=== PATIENT | male | born 1960 | race Caucasian/White ===

== ENCOUNTER → 2020-08-12 13:14 | Outpatient (BNVA) | payer MEDICARE, SELFPAY | PROVIDERS: Family Provider Family Medicine; PCP Family Medicine; Visit Provider Nurse Practitioner Family | DX: M25.512 Pain in left shoulder (principal); W19.XXXA Unspecified fall, initial encounter | CPT/HCPCS: 73030 ==

== ENCOUNTER 2020-11-02 16:11 | Emergency (ER) | payer MEDICARE, SELFPAY ==
[2020-11-02 16:56] VITALS: BP 171/104; PULSE 100; RESP 18; TEMP 36.8; O2SAT 98; BMI 21.1
[2020-11-02 17:42] VITALS: BP 177/110; PULSE 102; RESP 16; O2SAT 98
--- NOTE | 2020-11-02 17:57 | ECG_ITS ---
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
--- NOTE | 2020-11-02 17:57 | XR_ITS ---
WS: [id number] Exam: XR chest 1V portable [id number] Date/Time of Exam: 11/02/2020 6:19 PM Reason For Exam: palpitations Comparison 09/14/2017. The lungs are fully expanded and clear. Heart size is normal for technique. No pleural effusions. Dick cified granulomas noted bilaterally. Operative fusion of the lower cervical spine. Surgical clips in the upper left abdomen. XR/XR chest 1V portable [id number] IMPRESSION: 1. No acute cardiopulmonary finding. No change.
--- NOTE | 2020-11-02 18:00 | W.ED.ARRPALP ---
HPI - Arrhythmia/Palpitations General: Chief Complaint: Arrhythmia/Palpitations Stated Complaint: HIGH BP Time Seen by Provider: 11/02/20 17:49 History of Present Illness: HPI narrative: The patient is a 60-year-old male with past medical history hypertension and an old stroke who comes to the ER complaining of palpitations for the past week. He has episodes that last approximately less than 5 seconds and has these episodes about 5 times a day for the past week or so. He has been told by his family physician that he has palpitations and has had them his entire life however he has not felt them until this past week. At present he denies any symptoms including palpitations, chest pain, shortness of breath. He does not get short of breath with the episodes. MD complaint: palpitations Onset (ago): day(s) (7) Duration: intermittent and now resolved Severity: mild Associated symptoms: Reports anxiety Review of Systems General: Reports: 10 or more systems reviewed and unremarkable except in HPI and below Const: Denies: fatigue Eyes: Denies: change in vision, blurry vision or eye redness ENMT: Denies: throat pain, swelling of lips/tongue, ear or mastoid pain or nasal congestion Card: Reports: palpitations; Denies: chest pain, irregular heart rhythm, edema, dyspnea on exertion or orthopnea Resp: Denies: dyspnea, productive cough or non-productive cough GI: Denies: abdominal pain, diarrhea or GI cramping : Denies: flank pain, urinary frequency or urinary urgency Musc: Denies: neck pain, back pain, extremity pain, joint pain, joint redness, limited range of motion or muscle weakness Skin/Breast: Denies: rash, pruritus, erythema, skin pain or skin tenderness Neuro: Denies: headache(s), numbness in extremities, weakness in extremities, sensory changes, difficulty walking, dizziness, confusion or Slurred speech present Psych: Reports: anxiety Endo: Denies: polyuria All/Imm: Denies: urticaria, throat swelling or tongue swelling PFSH ED PFSH: Medical History Anxiety Carcinoma of left kidney CVA (cerebral vascular accident) Enrolled in chronic care management GERD (gastroesophageal reflux disease) Hypertension Hypothyroid Surgical History History of neck surgery Social History Smoking and tobacco status: former smoker Quit status (tobacco): has quit using tobacco Former quit date comment: smoked for 45 years Alcohol intake: current Alcohol intake frequency: holidays/special occasions only Physical Exam Const: COMMON NORMALS: no acute distress, average body habitus, patient oriented x3, no limitations, healthy appearing, alert and well nourished GENERAL APPEARANCE: cooperative, comfortable, well kempt and well developed ORIENTATION/CONSCIOUSNESS: Yes awake, Yes oriented to person, Yes oriented to place and Yes oriented to time HENMT: COMMON NORMALS: normocephalic, external ears normal and Normal external nose present HEAD & SCALP: normal to inspection and normocephalic NOSE: Normal external nose present EXTERNAL EAR: Yes external ears normal MOUTH: Normal oral and palatal mucosa present THROAT: posterior oropharynx normal Eye: COMMON NORMALS: Equal, round and reactive pupils present and EOMs intact bilaterally GENERAL EYE: appearance normal, both eyes and all related structures PUPIL: Yes Equal, round and reactive pupils present Neck/C-Spine: COMMON NORMALS: full ROM, no lymphadenopathy, no meningeal signs and no JVD GENERAL: Yes normal visual inspection Lymph: LYMPHATIC: no lymphadenopathy noted Chest: COMMONS NORMALS: normal inspection of the chest and normal palpation of entire chest wall Resp: COMMON NORMALS: normal respiratory effort, No retractions, No use of accessory muscles, clear to auscultation bilaterally and percussion normal EFFORT & INSPECTION: Yes able to speak in complete sentences AUSCULTATION: clear to auscultation bilaterally PERCUSSION: percussion normal Cardio: COMMON NORMALS: no JVD, regular rate, regular rhythm, S1 normal heart sound present, S2 normal heart sound present and Peripheral pulses 2+ throughout RATE: regular rate RHYTHM: regular rhythm HEART SOUNDS: S1 normal heart sound present and S2 normal heart sound present PERIPHERAL PULSES: Peripheral pulses 2+ throughout GI: COMMON NORMALS: Normal to inspection, nondistended, normoactive bowel sounds present, Soft to palpation, non-tender and no masses INSPECTION: Yes normal to inspection PALPATION: Yes Soft to palpation : COMMON NORMALS: Yes no CVA tenderness BLADDER/KIDNEY EXAM: Yes no CVA tenderness Back/Pelvis: COMMON NORMALS: no CVA tenderness, thoracic and lumbar spine normal to inspection, no thoracic nor lumbar tenderness and thoraco-lumbar ROM normal Extremity: COMMON NORMALS: normal to inspection, full ROM, capillary refill normal, no joint enlargement and no pedal edema GENERAL: Yes normal exam except as noted Neuro: COMMON NORMALS: patient oriented x3, CN's II-XII intact bilaterally, moves all extremities, no focal motor deficits, no sensory deficits noted and gait normal SENSORIUM/ORIENTATION: Yes alert, Yes oriented to person, Yes oriented to place and Yes oriented to time MENINGEAL SIGNS: Yes no meningeal signs Psych: COMMON NORMALS: mental status grossly normal, Normal thought process present, cooperative, normal affect and speech normal APPEARANCE: Yes well kempt ATTITUDE: Yes calm SPEECH: Yes normal speech MOOD & AFFECT: Yes anxious THOUGHT PROCESS: Normal thought process present Skin: COMMON NORMALS: no rashes or lesions noted GENERAL SKIN EXAM: no rashes or lesions noted Course Vital Signs: Vital signs: Vital Signs Temperature 98.3 F 11/02/20 16:56 Pulse Rate 86 11/02/20 21:26 Respiratory Rate 18 11/02/20 21:26 Blood Pressure 137/80 11/02/20 21:26 Pulse Oximetry 98 11/02/20 21:26 MDM - Arrhythmia/Palpitations MDM Narrative: Medical decision making narrative: The patient is having palpitations. He was monitored for a few hours on telemetry with no palpitations seen. Recommended he follow-up with a legal nurse consultant. Placed a case management referral for this. ER with worsening symptoms. Follow-up with primary care physician in a few days to monitor improvement of symptoms Lab Data: Labs: Lab Results 11/02/20 11/02/20 11/02/20 Range/Units 17:35 17:35 17:35 WBC 7.1 (4.0-10.0) 10^3/ uL RBC 5.39 H (4.1-5.3) 10^6/u L Hgb 15.9 (11.7-16.6) g/dL Hct 49.1 (42.0-52.0) % MCV 91.1 (80-94) fL MCH 29.5 (28.0-34.0) pg MCHC 32.4 (30.0-36.0) g/dL RDW 13.2 (12.1-15.1) % Plt Count 292 (130-400) 10^3/c mm MPV 10.1 (7.4-10.4) fL Neut % (Auto) 56.7 % Lymph % (Auto) 27.2 % Millard % (Auto) 10.1 % Eos % (Auto) 5.1 % Baso % (Auto) 0.8 % Neut # (Auto) 4.02 (1.8-7.7) 10^3/u L Lymph # (Auto) 1.9 (0.8-4.8) 10^3/u L Millard # (Auto) 0.7 (0.2-0.9) 10^3/u L Eos # (Auto) 0.4 (0.0-0.8) 10^3/u L Baso # (Auto) 0.1 (0.0-0.1) 10^3/u L Nucleated RBC % (a uto) 0 % Nucleated RBCs # 0.0 /100WBC D-Dimer (0-0.59) ug/mIFE U Sodium 142 (136-145) mmol/L Potassium 4.4 (3.5-5.1) mmol/L Chloride 103 (98-107) mmol/L Carbon Dioxide 30 H (22-29) mmol/L Anion Gap 13.4 (5-19) BUN 13 (8-23) mg/dL Creatinine 1.0 (0.7-1.2) mg/dL GFR Calculation 76.2 L (90-130) mL/min Glucose 72 (65-115) mg/dL Calculated Osmolal ity 293 (285-295) mOsm/k g Calcium 9.6 (8.5-10.5) mg/dL Total Bilirubin 0.7 (0.15-1.2) mg/dL AST 16 (0-40) U/L ALT 14 (0-41) U/L Alkaline Phosphata se 117 (40-130) IU/L Troponin T Baselin e 27 H (0-15) ng/L Troponin T 120 Min [place] (0-15) ng/L Delta Troponin T (0-10) ABS# Total Protein 7.9 (6.6-8.7) g/dL Albumin 4.8 (3.5-5.2) g/dL Globulin 3.1 (1.3-4.6) g/dL Urine Color (Yellow) Urine Appearance (CLEAR) Urine pH (5-7) Ur Specific Gravit y (1.005-1.030) Urine Protein (Negative) Urine Glucose (UA) (Normal) Urine Ketones (Negative) Urine Blood (Negative) Urine Nitrate (Negative) Urine Bilirubin (Negative) Urine Urobilinogen (Negative) mg/dL Ur Leukocyte Sharron ase (Negative) 11/02/20 11/02/20 11/02/20 Range/Units 17:35 17:40 21:10 WBC (4.0-10.0) 10^3/ uL RBC (4.1-5.3) 10^6/u L Hgb (11.7-16.6) g/dL Hct (42.0-52.0) % MCV (80-94) fL MCH (28.0-34.0) pg MCHC (30.0-36.0) g/dL RDW (12.1-15.1) % Plt Count (130-400) 10^3/c mm MPV (7.4-10.4) fL Neut % (Auto) % Lymph % (Auto) % Millard % (Auto) % Eos % (Auto) % Baso % (Auto) % Neut # (Auto) (1.8-7.7) 10^3/u L Lymph # (Auto) (0.8-4.8) 10^3/u L Millard # (Auto) (0.2-0.9) 10^3/u L Eos # (Auto) (0.0-0.8) 10^3/u L Baso # (Auto) (0.0-0.1) 10^3/u L Nucleated RBC % (a uto) % Nucleated RBCs # /100WBC D-Dimer 0.43 (0-0.59) ug/mIFE U Sodium (136-145) mmol/L Potassium (3.5-5.1) mmol/L Chloride (98-107) mmol/L Carbon Dioxide (22-29) mmol/L Anion Gap (5-19) BUN (8-23) mg/dL Creatinine (0.7-1.2) mg/dL GFR Calculation (90-130) mL/min Glucose (65-115) mg/dL Calculated Osmolal ity (285-295) mOsm/k g Calcium (8.5-10.5) mg/dL Total Bilirubin (0.15-1.2) mg/dL AST (0-40) U/L ALT (0-41) U/L Alkaline Phosphata se (40-130) IU/L Troponin T Baselin e (0-15) ng/L Troponin T 120 Min [place] 25.68 H (0-15) ng/L Delta Troponin T -1.32 L (0-10) ABS# Total Protein (6.6-8.7) g/dL Albumin (3.5-5.2) g/dL Globulin (1.3-4.6) g/dL Urine Color Yellow (Yellow) Urine Appearance Clear (CLEAR) Urine pH 5 (5-7) Ur Specific Gravit y 1.020 (1.005-1.030) Urine Protein Neg (Negative) Urine Glucose (UA) Norm (Normal) Urine Ketones Negative (Negative) Urine Blood Neg (Negative) Urine Nitrate Negative (Negative) Urine Bilirubin Neg (Negative) Urine Urobilinogen Norm (Negative) mg/dL Ur Leukocyte Sharron ase Negative (Negative) Discharge Plan Discharge Patient Disposition: Home Clinical Impression: Palpitations Condition: Stable Prescriptions: No Action aspirin [Adult Low Dose Aspirin] 81 mg tablet,delayed release (DR/EC) 81 mg PO DAILY@0800 RF: 0 clonidine HCl 0.2 mg tablet 0.2 mg PO .stat Qty: 1 RF: 0 clonidine HCl 0.1 mg tablet See Rx Instructions .ROUTE .COMPLEX Qty: 60 RF: 11 carvedilol 3.125 mg tablet 3.125 mg PO Q12H RF: 0 nortriptyline 25 mg capsule 25 mg PO DAILY@0800 RF: 0 Discharge Orders: Discharge ED (Routine); Ordered 11/02/20 Ordered By: Corwin Max Referrals: Rajinder Kruse DO [Primary Care Provider] - Discharge Diet: Advance as tolerated Discharge Activity: Resume usual activity Patient Instructions: Palpitations (ED), Opioid Safety Activity Restrictions/Additional Instructions: You are having palpitations. We have not seen them on the heart monitor you have a normal rhythm. Please follow-up with your primary care physician in a couple days to discuss this again and monitor your blood pressure as it was elevated here. You likely require a new medication to help lower it further. Return to the ER with worsening symptoms. I have placed a case management referral to help you get an appointment with a legal nurse consultant to further evaluate your palpitations. They should be calling you tomorrow to help set this up. Coding Level of Care Code ED Space Scheduler for Remi Fwfelix Exam Comprehensive
[2020-11-02] MEDS: sodium chloride 0.9% 1,000 ML 999 ML IV (18:14)
[2020-11-02 18:27] VITALS: BP 177/110; PULSE 95; RESP 16; O2SAT 98
[2020-11-02 18:46] LABS: Add Urine Microscopic? NO
[2020-11-02 18:58] LABS: Bilirubin Urine Neg (Negative); Blood Urine Neg (Negative); Glucose Urine UA Norm (Normal); Ketones Urine Negative (Negative); Leukocyte Esterase Urine Negative (Negative); Nitrate Urine Negative (Negative); Protein Urine Neg (Negative); Urine Appearance Clear (CLEAR); Urine Color Yellow (Yellow); Urobilinogen Urine Norm (Negative); pH Urine 5 (5-7)
[2020-11-02 19:02] VITALS: BP 177/110
[2020-11-02] MEDS: cloNIDine 0.1 mg Tablet 0.2 MG PO (19:02)
[2020-11-02 20:24] VITALS: BP 161/92; PULSE 101; RESP 18; O2SAT 96
[2020-11-02 20:34] LABS: Basophils # 0.1 10^3/uL (0.0-0.1); Basophils % 0.8 %; Eosinophils # 0.4 10^3/uL (0.0-0.8); Eosinophils % 5.1 %; Hematocrit 49.1 % (42.0-52.0); Hemoglobin 15.9 g/dL (11.7-16.6); Lymphocytes # 1.9 10^3/uL (0.8-4.8); Lymphocytes % 27.2 %; Mean Corpuscular HGB Conc 32.4 g/dL (30.0-36.0); Mean Corpuscular Hemoglobin 29.5 pg (28.0-34.0); Mean Corpuscular Volume 91.1 fL (80-94); Mean Platelet Volume 10.1 fL (7.4-10.4); Monocytes # 0.7 10^3/uL (0.2-0.9); Monocytes % 10.1 %; Neutrophils # 4.02 10^3/uL (1.8-7.7); Neutrophils % 56.7 %; Nucleated Red Blood Cells % 0 %; Platelet Count 292 10^3/cmm (130-400); Red Blood Count 5.39 10^6/uL (4.1-5.3); Red Cell Distribution Width 13.2 % (12.1-15.1); White Blood Count 7.1 10^3/uL (4.0-10.0)
[2020-11-02 20:42] LABS: Alanine Aminotransferase 14 U/L (0-41); Albumin Level 4.8 g/dL (3.5-5.2); Alkaline Phosphatase 117 IU/L (40-130); Anion Gap 13.4 (5-19); Aspartate Amino Transferase 16 U/L (0-40); Blood Urea Nitrogen 13 mg/dL (8-23); Calcium 9.6 mg/dL (8.5-10.5); Carbon Dioxide 30 mmol/L (22-29); Chloride 103 mmol/L (98-107); Globulin 3.1 g/dL (1.3-4.6); Glomerular Filtration Rate 76.2 mL/min (90-130); Glucose 72 mg/dL (65-115); Osmolality Calculated 293 mOsm/kg (285-295); Potassium 4.4 mmol/L (3.5-5.1); Sodium 142 mmol/L (136-145); Total Bilirubin 0.7 mg/dL (0.15-1.2); Total Protein 7.9 g/dL (6.6-8.7)
[2020-11-02 20:44] LABS: Troponin(5th) Baseline 27 ng/L (0-15)
[2020-11-02 21:11] LABS: D Dimer 0.43 ug/mIFEU (0-0.59)
[2020-11-02 21:26] VITALS: BP 137/80; PULSE 86; RESP 18; O2SAT 98
[2020-11-02 21:54] LABS: Troponin 5 2HR 25.68 ng/L (0-15)
[2020-11-02 22:01] LABS: Troponin 5 2HR Delta -1.32 ABS# (0-10)
--- NOTE | 2020-11-03 11:44 | DCPLANNER ---
security project manager had message to schedule a follow up appointment for patient with heart care. security project manager called heart care, spoke with Debby, gave clinic patients information. A follow up appointment was scheduled for Monday, November 16, 2020 at 9:[address] Gonzalez. security project manager called patient and gave patient the appointment information.
--- NOTE | 2020-11-26 08:07 | DCPLANNER ---
Patient had a follow up appointment scheduled for 11.16.[address] De Los Santos at [facility] - patient did attend appointment.
== END 2020-11-02 21:26 | disposition home or self-care (01) ==
PROVIDERS: Emergency Provider Family Medicine; PCP Family Medicine
DX: R00.2 Palpitations (principal); Z79.82 Long term (current) use of aspirin
CPT/HCPCS: 36415; 71045; 80053; 81003; 84484; 85025; 85378; 93005; 96360; 99284; J7030

== ENCOUNTER 2020-12-07 08:20 | Outpatient (CLI) | payer OTHER, MEDICAID, SELFPAY ==
--- NOTE | 2020-12-07 08:00 | USCV_ITS ---
Zaire Lujan Age: 60 Gender: M : 1960 Exam Date: 12/07/2020 08:36 Ordering Phys: Melisa Gonzalez MD ([email or web address]) Technologist: Harpreet Garcia Exam Location: [facility] – [place] Indication: Chest pain BP: 127 / 76 HR: 47 Rhythm: Sinus Technical Quality: Adequate MEASUREMENTS (Male / Female) Normal Values 2D ECHO LV Diastolic Diameter PLAX 5.7 cm 4.2 - 5.9 / 3.9 - 5.3 cm LV Systolic Diameter PLAX 5.2 cm IVS Diastolic Thickness 1.5 cm 0.6 - 1.0 / 0.6 - 0.9 cm IVS Systolic Thickness 1.5 cm LVPW Diastolic Thickness 1.0 cm 0.6 - 1.0 / 0.6 - 0.9 cm LVPW Systolic Thickness 1.3 cm LVOT Diameter 2.2 cm LV Ejection Fraction 2D Teich 9.9 % LV Ejection Fraction MOD 2C 50.6 % LV Ejection Fraction 2C AL 49.2 % LA Diameter 4.2 cm LA Width 4.5 cm LA Height 5.2 cm RA Width 4.3 cm RA Height 5.5 cm Aorta at Sinotubular Diameter 3.1 cm M-MODE LV Diastolic Diameter MM 6.1 cm 4.2 - 5.9 / 3.9 - 5.3 cm LV Systolic Diameter MM 5.0 cm LV Ejection Fraction MM Teich 37.5 % IVS Diastolic Thickness MM 0.7 cm 0.6 - 1.0 / 0.6 - 0.9 cm IVS Systolic Thickness MM 1.4 cm LVPW Diastolic Thickness MM 0.9 cm 0.6 - 1.0 / 0.6 - 0.9 cm LVPW Systolic Thickness MM 1.3 cm RV Diastolic Diameter MM 1.5 cm Aortic Annulus Diameter 3.7 cm LA Ao Ratio MM 1.2 MV E Point Septal Separation 2.5 cm DOPPLER AV Peak Velocity 90.0 cm/s LVOT Peak Velocity 71.0 cm/s AV Area Cont Eq vti 3.0 cm squared AV Area Cont Eq pk 2.9 cm squared MV Area PHT 5.0 cm squared Mitral E to A Ratio 1.4 MV E' Velocity 121.0 cm/s TR Peak Velocity 146.7 cm/s TR Peak Gradient 8.6 mmHg TV Peak E Velocity 69.0 cm/s Right Atrial Pressure 3.0 mmHg Pulmonary Artery Systolic Pressu 11.6 mmHg PV Peak Velocity 73.0 cm/s FINDINGS Left Ventricle Normal left ventricular cavity size. Moderately decreased left ventricular systolic function. Left ventricular ejection fraction is estimated at 30 %. Moderate global hypokinesis. Right Ventricle Normal right ventricular size and systolic function. Right ventricular systolic pressure 11.6 mmHg. Right Atrium Mildly increased right atrial size. Left Atrium Moderately increased left atrial size. Mitral Valve Structurally normal mitral valve. No mitral valve stenosis. Moderate-severe mitral valve regurgitation. Aortic Valve Structurally normal trileaflet aortic valve. No aortic valve stenosis. Mfjq-bm-zdwmjsvy aortic valve regurgitation. Tricuspid Valve Structurally normal tricuspid valve. No tricuspid valve stenosis. Mild to moderate tricuspid valve regurgitation. Pulmonic Valve Structurally normal pulmonic valve. No pulmonary valve stenosis. Trace pulmonary valve regurgitation. Pericardium No pericardial effusion. Aorta Normal size aortic root and proximal ascending aorta. CONCLUSIONS 1. Normal left ventricular cavity size. Moderately decreased left ventricular systolic function. Left ventricular ejection fraction is estimated at 30 %. Moderate global hypokinesis. 2. Normal right ventricular size and systolic function. 3. Moderate-severe mitral valve regurgitation. 4. Pgif-xi-tintebea aortic valve regurgitation. 5. No prior similar studies to compare. Melisa Gonzalez MD (Electronically Signed) Final Date: 11 December 2020 21:31 S
== END 2020-12-07 08:21 | disposition home or self-care (01) ==
LOC: US 08:22
PROVIDERS: PCP Family Medicine; Visit Provider Internal Medicine Cardiovascular Disease
DX: R01.1 Cardiac murmur, unspecified (principal); R07.9 Chest pain, unspecified; I08.0 Rheumatic disorders of both mitral and aortic valves
CPT/HCPCS: 93306

== ENCOUNTER → 2021-01-03 10:48 | Outpatient (BNVA) | payer OTHER, SELFPAY | PROVIDERS: PCP Family Medicine; Visit Provider Internal Medicine Cardiovascular Disease | DX: Z01.818 Encounter for other preprocedural examination (principal); Z20.822 Contact with and (suspected) exposure to COVID-19; Z11.52 Encounter for screening for COVID-19; I34.0 Nonrheumatic mitral (valve) insufficiency | CPT/HCPCS: 87635 ==

== ENCOUNTER 2021-01-07 11:06 | Day surgery (SDC) | payer MEDICARE, SELFPAY ==
--- NOTE | 2021-01-07 | USCV_ITS ---
Zaier Luajn Age: 60 Gender: M : 1960 Exam Date: 01/07/2021 12:12 Ordering Phys: Melisa Gonzalez MD ([email or web address]) Technologist: Harpreet Garcia Exam Location: [facility] – [place] Indication: Mitral regurgitation BP: 155 / 90 HR: 39 Rhythm: Sinus Technical Quality: Good MEASUREMENTS (Male / Female) Normal Values 2D ECHO LVOT Diameter 2.0 cm Medications Patient given IV sedation by anesthesia service, for details please refer to the anesthesia report. Complications Patient tolerated procedure well. None. Proc. Components The patient was brought to the ANALILIA examination room in a fasting state after obtaining an informed consent. The ANALILIA probe was passed into the posterior pharynx , mid-esophagus, distal esophagus, and gastric fundus. The patient tolerated the procedure well and there were no complications. FINDINGS Left Ventricle Moderately increased left ventricular cavity size. Moderately decreased left ventricular systolic function. Left ventricular ejection fraction is estimated at 30 %. Moderate global hypokinesis. Right Ventricle Normal right ventricular size and systolic function. Right Atrium Normal right atrial size. Left Atrium Moderately increased left atrial size. LA Appendage Normal left atrial appendage. Normal flow velocities in the left atrial appendage. No thrombus visualized in the left atrial appendage. IA Septum Normal interatrial septum. No patent foramen ovale. No evidence for an atrial septal defect. Mitral Valve Structurally normal mitral valve. No mitral valve stenosis. Moderate-severe mitral valve regurgitation. Aortic Valve Structurally normal trileaflet aortic valve. Qzws-rs-kqjanuzv aortic valve regurgitation. Tricuspid Valve Structurally normal tricuspid valve. No tricuspid valve stenosis. Klab-zo-lqgqmydv tricuspid valve regurgitation. Pulmonic Valve Structurally normal pulmonic valve. No pulmonary valve stenosis. Trace pulmonary valve regurgitation. Pericardium No pericardial effusion. Aorta Normal size aortic root and proximal ascending aorta. CONCLUSIONS 1. Moderately increased left ventricular cavity size. Moderately decreased left ventricular systolic function. Left ventricular ejection fraction is estimated at 30 %. Moderate global hypokinesis. 2. Normal right ventricular size and systolic function. 3. Moderate-severe mitral valve regurgitation. 4. Uvuy-pm-yppssbiu aortic valve regurgitation. 5. Saqy-rq-sscgmnzz tricuspid valve Melisa Gonzalez MD (Electronically Signed) Final Date: 16 Jan 2021 15:32 S
[2021-01-07 11:19] VITALS: BP 166/96; PULSE 91; RESP 18; TEMP 36.6; O2SAT 99
--- NOTE | 2021-01-07 11:32 | ANES.PREANE2 ---
Pre-Anesthetic Assessment Pre-Anesthetic Assessment: Height/Weight: Height 1.7 m Weight 56.699 kg Temp Pulse Resp BP Pulse Ox 97.8 F 91 18 166/96 99 01/07/21 11:19 01/07/21 11:19 01/07/21 11:19 01/07/21 11:19 01/07/21 11:19 Preop Diagnosis: Mitral regurge Proposed Procedure: Operation Date: 01/07/21 12:00 Proposed Procedures p ANALILIA 08572 I34.0(Not Applicable) - Melisa Gonzalez MD Familial anesthetic complications: None Was Beta Latoya taken within 24 hours: Yes Was Clonidine taken within 24 hours: N/A Last intake: Intake Last Liquid Date 01/06/21 Last Liquid Time 21:00 Last Solid Date 01/06/21 Last Solid Time 18:30 Social: Social History: No alcohol and No tobacco Comment: former smoker Exam: Pre-Anes Outpt Exam: alert, oriented x 3, clear to auscultation bilaterally and regular rate & rhythm Airway: Cervical ROM: WNL MP: 2 Dentition: Other (1 missing) CV/HEM: CV/HEM: Arrythmia (tachycardia) and HTN Comments: MVR and TVR and AVR : Comments: Hx renal cell carcinoma - unilateral kidney GI: GI: GERD Metabolic: Metabolic: Thyroid Anesthetic Plan: ASA status: 3 Anesthesia: MAC Risk of > 500 ml blood loss (7ml/kg in children): No PFSH Anesthesia PFSH: Medical History (Updated 12/16/20 @ 21:32 by Melisa Gonzalez MD) Anxiety Aortic regurgitation Carcinoma of left kidney CHF (NYHA class III, ACC/AHA stage C) CVA (cerebral vascular accident) Enrolled in chronic care management GERD (gastroesophageal reflux disease) Hypertension Hypothyroid Mitral regurgitation Tricuspid regurgitation Surgical History History of neck surgery Family History Grandfather CAD (coronary artery disease) Denies family history of Diabetes Stroke Social History Smoking and tobacco status: former smoker Quit status (tobacco): has quit using tobacco Former quit date comment: smoked for 45 years Alcohol intake: current Alcohol intake frequency: holidays/special occasions only Data Anesthesia Cardiac Studies: No Data to Display
[2021-01-07] MEDS: sodium chloride 0.9% 1,000 ML 30 ML IV (11:47)
--- NOTE | 2021-01-07 11:48 | W.PM.OPSUD ---
Surgery/Procedure H&P Update DATE OF PROCEDURE: January 07, 2021 DATE H&P PERFORMED: 12/15/20 PREOP DIAGNOSIS: Mitral regurge PLANNED PROCEDURE: 60 yo man with h/o HTN presented for outpatient ANALILIA for further evaluation of moderate to severe mitral regugitation noted onm TTE.. Operation Date: 01/07/21 12:00 Proposed Procedures p ANALILIA 85379 I34.0(Not Applicable) - Melisa Gonzalez MD
--- NOTE | 2021-01-07 12:55 | ANE.PACU2 ---
Inpatient post-anesthesia follow up: Airway intact: Yes Vital signs: Temperature 97.8 F Pulse Rate 91 Respiratory Rate 18 Blood Pressure 166/96 Pulse Oximetry 99 Oxygen Delivery Me thod Room Air Oxygen Flow Rate Fraction of Inspir ed Oxygen Nausea and vomiting: No Pain level: 1 Mental status: Baseline
[2021-01-07 12:57] VITALS: BP 118/66; PULSE 95; RESP 12; TEMP 36.3; O2SAT 93
--- NOTE | 2021-01-07 12:59 | PM.ACPR ---
Procedure/Consent Time out: Time Out Performed: Yes Consent: Consent for Procedure: Consent obtained from patient, Risks & Benefits reviewed and Agrees to proceed with procedure Procedure Narrative: ANALILIA Procedure note Indication: Assessment of mitral valve and mitral regurgitation Sedation: Propofol by anesthesia The patient was brought down to the GI Lab. Procedure was explained to the patient in detail and informed consent was obtained. Timeout was called. After achieving adequate sedation, the probe was inserted on first attempt. No blood on the probe post procedure. Prelim report: Moderately decreased left ventricular systolic function. No ASD or PFO identified. 3+ mitral regurgitation. full report to follow. Patient tolerated the procedure well and initial recovery in GI lab and subsequently was discharged home. Findings of the procedure were discussed in detail with patient and her daughter. Acute Procedures Epistaxis Control: Time out performed: Yes
--- NOTE | 2021-01-07 13:04 | ANE.PACU2 ---
Inpatient post-anesthesia follow up: Airway intact: Yes Vital signs: Temperature 97.4 F Pulse Rate 95 Respiratory Rate 12 Blood Pressure 118/66 Pulse Oximetry 93 Oxygen Delivery Me thod Room Air Oxygen Flow Rate Fraction of Inspir ed Oxygen Hydration adequate: Yes Nausea and vomiting: No Pain level: 1 Mental status: Baseline
== END 2021-01-07 13:30 | disposition home or self-care (01) ==
PROVIDERS: PCP Family Medicine; Visit Provider Internal Medicine Cardiovascular Disease
PROC: (CPT 93312; principal; 2021-01-07 12:00)
DX: I34.0 Nonrheumatic mitral (valve) insufficiency (principal); I10 Essential (primary) hypertension; K21.9 Gastro-esophageal reflux disease without esophagitis; Z87.891 Personal history of nicotine dependence; Z85.528 Personal history of other malignant neoplasm of kidney; Z90.5 Acquired absence of kidney; F41.9 Anxiety disorder, unspecified; I11.0 Hypertensive heart disease with heart failure; I50.9 Heart failure, unspecified; Z86.73 Personal history of transient ischemic attack (TIA), and cerebral infarction without residual deficits; E03.9 Hypothyroidism, unspecified; Z82.49 Family history of ischemic heart disease and other diseases of the circulatory system
CPT/HCPCS: 93312; 93320; 93325; 96360; 96361; J2704; J7030

== ENCOUNTER → 2021-01-13 16:21 | Outpatient (BNVA) | payer MEDICARE, SELFPAY | PROVIDERS: PCP Family Medicine; Visit Provider Internal Medicine Cardiovascular Disease | DX: Z01.818 Encounter for other preprocedural examination (principal); R01.1 Cardiac murmur, unspecified; I50.9 Heart failure, unspecified; I34.0 Nonrheumatic mitral (valve) insufficiency; I36.1 Nonrheumatic tricuspid (valve) insufficiency; I10 Essential (primary) hypertension; I35.1 Nonrheumatic aortic (valve) insufficiency; K21.9 Gastro-esophageal reflux disease without esophagitis; F41.9 Anxiety disorder, unspecified | CPT/HCPCS: 80048; 83735; 83880; 85025; 85610; 87635 ==

== ENCOUNTER 2021-01-17 07:23 | Day surgery (SDC) | payer MEDICARE, SELFPAY ==
[2021-01-17] VITALS (9 sets, daily range): BP systolic 108–182; BP diastolic 62–98; PULSE 69–89; RESP 13–16; TEMP 36.6–36.9; O2SAT 94–99; BMI 21.2
--- NOTE | 2021-01-17 07:30 | XACV_ITS ---
Exam Room: [facility] Ht: 170 cm Wt: 62 kg BSA: 1.71 m2 Gender: Male : 1960 Any Known Allergies: Other Exam Priority: Routine Procedure(s): Procedure Description: Diagnostic procedure Procedure Description: Left Heart Catheterization Procedure Description: Right Heart Catheterization Procedure Description: Left ventriculography Procedure Description: O2 saturation Procedure Description: Coronary Angiography Diagnostic Cath Status: Elective Diagnostic Findings * Left Main has minor luminal irregularities. * Circumflex gives rise to a large OM branch that has proximal 80% stenosis. * Mid Right Coronary Artery to Distal Right Coronary Artery: chronic total occlusion, TACOS: 0 flow. * Right heart cath findings: RA pressure: 18/20(15) millimeters of mercury RV pressure: 58/11(16) millimeters of mercury PA pressure: 61/34(45) millimeters of mercury Wedge pressure: 39/66(39) millimeters of mercury Transpulmonary gradient: 6 Cardiac output: 8 Cardiac index: 5 PVR:<3 Moderate to severe postcapillary hypertension . * Proximal Left Anterior Descending: significant 80% stenosis, TACOS: 3 flow. * First Obtuse Marginal Branch Segment: significant 80% stenosis, TACOS: 3 flow. * Coronary angiography shows right dominance. Conclusions 1. There is severe multivessel coronary artery disease including PLASTERER ROUGH of RCA, severe OM1 disease, severe proximal LAD stenosis.. 2. 3+ mitral regurgitation. 3. 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 4. Mild left ventricular systolic dysfunction. Ejection fraction of 40%. Recommendations * Given patient's mitral regurgitation and severe multivessel coronary artery disease, surgical evaluation for mitral valve repair and CABG. * Recommend diuresis. * Outpatient cardiology follow-up. Interventional RX Recommendation: CABG Diagnostic RX Recommendation: CABG Anticoagulation: Heparin Ventriculography Ejection Fraction: 40.0 % Left Ventriculography Findings: * 3+ MR. Pressures Phase:Rest AO : 159 / 99 ( 126 ) @ 9:54:00 AM 168 / 98 ( 130 ) @ 10:06:00 AM 162 / 85 ( 121 ) @ 10:06:00 AM LV : 153 / 7 / 27 @ 10:05:00 AM 157 / 5 / 27 @ 10:05:00 AM 159 / 4 / 27 @ 10:06:00 AM RV : 58 / 11 / 16 @ 9:47:00 AM PA : 61 / 34 ( 45 ) @ 9:46:00 AM RA : a wave = 18 v wave = 20 mean = 15 @ 9:48:00 AM PCW : a wave = 39 v wave = 66 mean = 39 @ 9:46:00 AM O2 Content Phase:Rest PA : O2 Content O2: 77.0 @ 9:54:00 AM Saturations Phase:Rest AO : 91 @ 10:06:00 AM PA : 77 @ 9:54:00 AM Cardiac Output Phase:Rest Charissa : 8 @ 11:18:58 AM Charissa Cardiac Index: 5 @ 11:18:58 AM Flow Phase:Rest Qp : 8 @ 11:18:58 AM Qs : 8 @ 11:18:58 AM Valves Phase:DefaultPhase AV : 0.0 @ 11:18:58 AM AV Mean Gradient: 0.0 @ 11:18:58 AM AV Flow: 1,099 @ 11:18:58 AM Clinical Evaluation EBL: 5mL-10mL Procedural Details Procedure Consent Obtained. Pre-Procedure Time Out. Identified patient by full name and date of as verbalized by the patient/guarantor. Does the consent match the physician's order: Yes. Accurate & Complete Informed Consent: Yes. Inpatient/Outpatient History & Physical on Chart: Yes. If H&P is completed, is and addenduem needed: No; If yes, is the addendum complete: N/A. Visualize and Verify Site with Patient/Guarantor: N/A. Relevant Radiology Images available: N/A. Pre-op teaching completed and patient verbalized understanding. The risks, benefits, and alternatives of sedation and/or procedure were discussed by physician. The patient agrees to continue. Procedure started. [facility] Clinical Fraility Score: 4: Vulnerable. Binding Cutter Synthetic Cloth Indications: Valvular Disease, cardiomyopathy. Chest Pain Symptom Assessment: Atypical Angina. Cardiovascular Instability: No. Correct patient, site and procedure confirmed by cath team. PERRLA. Strong, equal hand critical care registered nurse bilaterally. Lungs clear x 5 lobes. IV Site on Arrival: 20 gauge in the left anticubital. IV Site on Arrival: 20 gauge in the right anticubital. IV Fluids: 0.9% NaCl at KVO. 0 mL infused prior to blood bank laboratory technician. Pre Procedural Pulses: bilateral dorsalis pedis was 3+. Pre Procedural Pulses: bilateral posterior tibial was 1+. Pre Procedural Pulses: bilateral radial was 3+. bilateral groins was prepped with chloroprep then draped in the usual sterile fashion. right radial was prepped with chloroprep then draped in the usual sterile fashion. right brachial was prepped with chloroprep then draped in the usual sterile fashion. NIBP 185/120. Baseline sample Acquired. HR: 92 BPM. Physician notified. Physician arrived. Equipment: 6F - Radial. Cardiac Cath Pack. ACIST Manifold Kit Model BT 2000. Heparinized Saline (2 units/mL), 1000 mL bag. Physician scrubbed in. Immediate Pre-Procedure Time Out. Correct Patient: Yes; Correct Procedure: Yes; Correct Site: Yes; Correct Patient Position: Yes; Correct Supplies: Yes; Dried Flammable Prep: Yes; Blood Products Available: N/A;. Wire inserted through IV catheter in right brachial vein. Lidocaine 1% infiltrated to the right brachial. IV catheter removed over wire. Dilley-Jeovanny MON catheter inserted. Ceylon wire inserted through the Dilley catheter. Wire out. Dilley-Jeovanny out. Lidocaine 1% infiltrated to the right radial. Arterial access obtained. A 5 canadian TIG catheter in over wire. Multiple views taken of left coronary artery. Catheter redirected to the RCA. Catheter removed over the exchange wire. A CRD 5F JR4 Diagnostic Catheter was advanced over the wire and used for Right coronary angiography. Catheter removed over the exchange wire. A 5 canadian Angled Pig catheter in over wire. EDP Sample taken: LV 153/7,27; HR: 93 BPM; SpO2: 75%. LV gram performed in MESA @ 10 mL/second for a total of 23 mL. EDP Sample taken: LV 157/5,27; HR: 97 BPM; SpO2: Off%. Pullback taken: LV 159/4,27; AO 168/98(130); Mean: 0mmHg, Peak to Peak: 0mmHg, SEP: 7sec/min; HR: 97 BPM; SpO2: Off%. Catheter removed over the exchange wire. Physician scrubbed out. A Mechanical Compression was successful obtaining hemostatsis at the Right Brachial Vein insertion site. A TR Band was successful obtaining hemostatsis at the Right Radial artery insertion site. TR band placed. Hemostasis obtained. Sheath(s) removed and manual pressure held until hemostasis was achieved. Sterile 4x4 and Op-site applied to the puncture site. No oozing or hematoma noted. Post sheath removal instructions were given and the patient verbalized understanding. Post Procedure: Pulses reassessed and unchanged. PERRLA. Strong, equal hand critical care registered nurse bilaterally. No VTE prophylaxis required. Medication's Wasted: Lidocaine 1% = 16 mL. Medication's Wasted: Nitro = 49.8 mg. Medication's Wasted: Heparin = 1000 units. Total IV fluids: 50 mL. Contrast type used: Visipaque 320 mgI/mL, 500 mL bottle. Post-op diagnosis: severe 3 vessell CAD. Complications: none. Estimated blood loss: 5mL-10mL. Procedure completed. Medication's Wasted: Other = versed 1 mg. Medication's Wasted: Other = fentanyl 50 mcg. Patient transferred by wheelchair to 1st floor. Vital chart was stopped. Access Site Site: Right Brachial Vein Sheath Size: 6 Fr Hemostasis Method: Mechanical Compression Hemostasis Success: Successful Site: Right Radial artery Sheath Size: 6 Fr Hemostasis Method: TR Band Hemostasis Success: Successful Procedure Medications Start: 10:26 AM Stop: 10:26 AM Medication: Versed Amount: 1 mg Route: I.V. Start: 10:26 AM Stop: 10:26 AM Medication: Fentanyl Amount: 50 mcg Route: I.V. Start: 10:33 AM Stop: 10:33 AM Medication: Versed Amount: 1 mg Route: I.V. Start: 10:36 AM Stop: 10:36 AM Medication: Fentanyl Amount: 50 mcg Route: I.V. Start: 10:39 AM Stop: 10:39 AM Medication: Versed Amount: 1 mg Route: I.V. Start: 10:44 AM Stop: 10:44 AM Medication: Versed Amount: 1 mg Route: I.V. Start: 10:51 AM Stop: 10:51 AM Medication: Nitrogylcerin Amount: 200 mcg Route: I.A. Start: 10:54 AM Stop: 10:54 AM Medication: Heparin Amount: 5000 units Route: I.V. Start: 10:57 AM Stop: 10:57 AM Medication: Fentanyl Amount: 50 mcg Route: I.V. Start: 11:01 AM Stop: 11:01 AM Medication: Versed Amount: 1 mg Route: I.V. I, the attending physician, have reviewed and verified all procedure medications. Yes, all medications given per verbal order History/Risk Factors Hypertension: Yes Dyslipidemia: No Peripheral Arterial Disease (PAD): No Myocardial Infarction (IA): No Obesity: No Renal Disease: No Tobacco Use: Former Prior Interventions PCI: No CABG: No Valve Surgery: No Report Signatures Finalized by Gokul White MD on 01/25/2021 02:01 PM
[2021-01-17] MEDS: diphenhydrAMINE 50 mg Capsule PO (08:05)
--- NOTE | 2021-01-17 10:34 | P.HPUD_ITS ---
Surgery/Procedure H&P Update DATE OF PROCEDURE: January 17, 2021 DATE H&P PERFORMED: 01/13/21 H&P UPDATE INFORMATION: I have reviewed H&P completed within last 30 days, I have examined patient prior to procedure and No changes to prior documentation CHANGES TO PREVIOUS DOCUMENTATION: Patient has significant mitral regurgitation. Plan for right and left heart cath. Risks and benefits discussed with the patient. Patient is agreeable to the procedure. PREOP DIAGNOSIS: Mitral regurgitation PRIMARY INDICATION FOR PROCEDURE: Mitral regurgitation PLANNED PROCEDURE: Operation Date: 01/17/21 08:30 Proposed Procedures p Cardiac Catheterization 61396 I34.0(Bilateral) - Gokul White M.D PATIENT REASSESSED PRIOR TO SEDATION, WITH NO CHANGE NOTED: Yes PHYSICAL EXAM: alert, oriented x 3, clear to auscultation bilaterally and regular rate & rhythm AIRWAY EVAL/ANESTHESIA PLAN: ASA III, Monitored Anesthesia, Local Anesthesia, Risks, benefits & alternatives of sedation and/or procedure discussed and P atient agrees to continue as planned
--- NOTE | 2021-01-17 17:30 | PC.NURSE ---
Discharge to home with caregiver Instructed pt to follow-up with his appointments. Informed pt on his new med actions, dosing and timing. Care noted provided to pt regarding chf stoplight, valve problems. discharge packet provided to pt. ushered via wheelchair.
== END 2021-01-17 17:30 | disposition home or self-care (01) ==
LOC: CCL 07:24 → CSU 08:41
PROVIDERS: PCP Family Medicine; Visit Provider Internal Medicine
DX: I25.10 Atherosclerotic heart disease of native coronary artery without angina pectoris (principal); Z87.891 Personal history of nicotine dependence; I34.0 Nonrheumatic mitral (valve) insufficiency; I11.0 Hypertensive heart disease with heart failure; I50.9 Heart failure, unspecified; Z79.82 Long term (current) use of aspirin; I07.1 Rheumatic tricuspid insufficiency; I35.1 Nonrheumatic aortic (valve) insufficiency; K21.9 Gastro-esophageal reflux disease without esophagitis; F41.9 Anxiety disorder, unspecified
CPT/HCPCS: 36415; 93453; C1751; C1769; C1887; C1894; J1644; J2250; J3010; J3490; J7030; Q0163; Q9967

== ENCOUNTER → 2021-01-24 15:25 | Outpatient (BNVA) | payer MEDICARE, SELFPAY | PROVIDERS: PCP Family Medicine; Visit Provider Nurse Practitioner Family | DX: I25.10 Atherosclerotic heart disease of native coronary artery without angina pectoris (principal); I34.0 Nonrheumatic mitral (valve) insufficiency | CPT/HCPCS: 80048 ==

== ENCOUNTER 2021-02-02 23:34 | Emergency (ER) | payer MEDICARE, SELFPAY ==
[2021-02-02 23:35] VITALS: BP 125/70; PULSE 98; RESP 16; TEMP 36.8; O2SAT 97; BMI 21.2
--- NOTE | 2021-02-02 23:38 | ECG_ITS ---
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 Measurements Intervals [place] Rate: 94 P: 50 NE: 174 QRS: 30 QRSD: 92 T: 107 QT: 343 QTc: 430 Interpretive Statements SINUS RHYTHM POSSIBLE LEFT ATRIAL ENLARGEMENT [-0.1mV P WAVE IN V1/V2] LEFT VENTRICULAR HYPERTROPHY AND ST-T CHANGE [VOLTAGE CRITERIA PLUS ST/T ABNORMALITY] INFERIOR MYOCARDIAL INFARCTION , PROBABLY OLD [40+ ms Q WAVE AND/OR ST/T ABNORMALITY IN II/aVF]Compared to ECG 11/02/2020 17:05:49 Left ventricular hypertrophy now present ST (T wave) deviation now present Myocardial infarct finding still present Electronically Signed On 02-03-2021 10:12:03 CDT by Gokul White M.D. [id number]
--- NOTE | 2021-02-02 23:39 | ED_ITS ---
HPI - Chest Pain General: Chief Complaint: Chest Pain Stated Complaint: chest pain and syncope Time Seen by Provider: 02/02/21 23:34 Source: patient and EMS Mode of arrival: EMS Limitations: no limitations History of Present Illness: HPI narrative: 60-year-old male has history of coronary disease states he had chest pain over the last 2 days. States today he had a near syncopal event from his pain. States pain is currently 2 out of 10. Denies any shortness of breath. Denies any worsening improving factors. Denies any nausea. Associated symptoms: Reports syncope; Deny abdominal pain, dyspnea, fever(s), nausea or vomiting Review of Systems Const: Denies: fever(s), chills, body aches or change in appetite Eyes: Denies: blurry vision or eye discomfort ENMT: Denies: throat pain or dental pain Card: Reports: chest pain and syncope Resp: Denies: dyspnea GI: Denies: abdominal pain, nausea, vomiting or diarrhea : Denies: dysuria Musc: Denies: neck pain or back pain Skin/Breast: Denies: rash Neuro: Denies: headache(s) Psych: Denies: depression Sudarshan/Lymph: Denies: easy bruising All/Imm: Denies: urticaria PFSH ED PFSH: Medical History Anxiety Aortic regurgitation Carcinoma of left kidney CHF (NYHA class III, ACC/AHA stage C) CVA (cerebral vascular accident) Enrolled in chronic care management GERD (gastroesophageal reflux disease) Hypertension Hypothyroid Mitral regurgitation Tricuspid regurgitation Surgical History History of neck surgery Family History Grandfather CAD (coronary artery disease) Denies family history of Diabetes Stroke Social History Smoking and tobacco status: former smoker Quit status (tobacco): has quit using tobacco Former quit date comment: smoked for 45 years Alcohol intake: current Alcohol intake frequency: holidays/special occasions only Physical Exam Const: COMMON NORMALS: no acute distress, patient oriented x3 and healthy appearing HENMT: COMMON NORMALS: normocephalic and atraumatic HEAD & SCALP: normocephalic and atraumatic Eye: COMMON NORMALS: Equal, round and reactive pupils present and EOMs intact bilaterally PUPIL: Yes Equal, round and reactive pupils present Neck/C-Spine: COMMON NORMALS: full ROM and supple Chest: COMMONS NORMALS: normal inspection of the chest and normal palpation of entire chest wall Resp: COMMON NORMALS: normal respiratory effort, No retractions, No use of accessory muscles and clear to auscultation bilaterally AUSCULTATION: clear to auscultation bilaterally Cardio: COMMON NORMALS: regular rate, regular rhythm and No murmurs present (Cardio) RATE: regular rate RHYTHM: regular rhythm GI: COMMON NORMALS: Normal to inspection, nondistended, normoactive bowel sounds present, Soft to palpation, non-tender and no masses PALPATION: Yes Soft to palpation Extremity: COMMON NORMALS: normal to inspection and full ROM Neuro: COMMON NORMALS: patient oriented x3, moves all extremities and no focal motor deficits Psych: COMMON NORMALS: mental status grossly normal, Normal thought process present and cooperative THOUGHT PROCESS: Normal thought process present Skin: COMMON NORMALS: no rashes or lesions noted and no wounds GENERAL SKIN EXAM: no rashes or lesions noted Course Vital Signs: Vital signs: Vital Signs Temperature 98.3 F 02/02/21 23:35 Pulse Rate 99 02/03/21 02:00 Respiratory Rate 22 H 02/03/21 02:00 Blood Pressure 123/73 02/03/21 02:00 Pulse Oximetry 96 02/03/21 02:00 MDM - Chest Pain MDM Narrative: Medical decision making narrative: Patient presents for chest pain that is since resolved. Did reviews his recent cath and patient does not follow-up with a CT surgeon for his three-vessel disease. His repeat troponin here went down. Patient feels improved would like to go home. Informed he needs to call his wellness trainer and he needs follow-up in 2 to 4 days. He has any more chest pain he is return immediately. He understands and agrees to this plan. Lab Data: Labs: Lab Results 02/02/21 02/02/21 02/02/21 Range/Units 23:54 23:54 23:54 WBC 13.1 H (4.0-10.0) 10^3/ uL RBC 4.71 (4.1-5.3) 10^6/u L Hgb 13.8 (11.7-16.6) g/dL Hct 41.5 L (42.0-52.0) % MCV 88.1 (80-94) fL MCH 29.3 (28.0-34.0) pg MCHC 33.3 (30.0-36.0) g/dL RDW 13.3 (12.1-15.1) % Plt Count 251 (130-400) 10^3/c mm MPV 9.5 (7.4-10.4) fL Neut % (Auto) 82.1 % Lymph % (Auto) 10.6 % [place] % (Auto) 6.1 % Eos % (Auto) 0.5 % Baso % (Auto) 0.5 % Neut # (Auto) 10.76 H (1.8-7.7) 10^3/u L Lymph # (Auto) 1.4 (0.8-4.8) 10^3/u L [place] # (Auto) 0.8 (0.2-0.9) 10^3/u L Eos # (Auto) 0.1 (0.0-0.8) 10^3/u L Baso # (Auto) 0.1 (0.0-0.1) 10^3/u L Nucleated RBC % (a uto) 0 % Nucleated RBCs # 0.0 /100WBC D-Dimer 0.55 (0-0.59) ug/mIFE U Sodium 132 L (136-145) mmol/L Potassium 4.4 (3.5-5.1) mmol/L Chloride 92 L (98-107) mmol/L Carbon Dioxide 26 (22-29) mmol/L Anion Gap 18.4 (5-19) BUN 34 H (8-23) mg/dL Creatinine 2.3 H (0.7-1.2) mg/dL GFR Calculation 29.2 L (90-130) mL/min Glucose 105 (65-115) mg/dL Calculated Osmolal ity 282 L (285-295) mOsm/k g Calcium 9.3 (8.5-10.5) mg/dL Total Bilirubin 0.5 (0.15-1.2) mg/dL AST 20 (0-40) U/L ALT 35 (0-41) U/L Alkaline Phosphata se 133 H (40-130) IU/L Troponin T Baselin e (0-15) ng/L Troponin T 120 Min [place] (0-15) ng/L Delta Troponin T (0-10) ABS# Total Protein 7.3 (6.6-8.7) g/dL Albumin 4.2 (3.5-5.2) g/dL Globulin 3.1 (1.3-4.6) g/dL 02/02/21 02/03/21 Range/Units 23:54 01:50 WBC (4.0-10.0) 10^3/ uL RBC (4.1-5.3) 10^6/u L Hgb (11.7-16.6) g/dL Hct (42.0-52.0) % MCV (80-94) fL MCH (28.0-34.0) pg MCHC (30.0-36.0) g/dL RDW (12.1-15.1) % Plt Count (130-400) 10^3/c mm MPV (7.4-10.4) fL Neut % (Auto) % Lymph % (Auto) % [place] % (Auto) % Eos % (Auto) % Baso % (Auto) % Neut # (Auto) (1.8-7.7) 10^3/u L Lymph # (Auto) (0.8-4.8) 10^3/u L [place] # (Auto) (0.2-0.9) 10^3/u L Eos # (Auto) (0.0-0.8) 10^3/u L Baso # (Auto) (0.0-0.1) 10^3/u L Nucleated RBC % (a uto) % Nucleated RBCs # /100WBC D-Dimer (0-0.59) ug/mIFE U Sodium (136-145) mmol/L Potassium (3.5-5.1) mmol/L Chloride (98-107) mmol/L Carbon Dioxide (22-29) mmol/L Anion Gap (5-19) BUN (8-23) mg/dL Creatinine (0.7-1.2) mg/dL GFR Calculation (90-130) mL/min Glucose (65-115) mg/dL Calculated Osmolal ity (285-295) mOsm/k g Calcium (8.5-10.5) mg/dL Total Bilirubin (0.15-1.2) mg/dL AST (0-40) U/L ALT (0-41) U/L Alkaline Phosphata se (40-130) IU/L Troponin T Baselin e 43 H (0-15) ng/L Troponin T 120 Min [place] 34.01 H (0-15) ng/L Delta Troponin T -8.99 L (0-10) ABS# Total Protein (6.6-8.7) g/dL Albumin (3.5-5.2) g/dL Globulin (1.3-4.6) g/dL Imaging Data^: CXR: Radiologist's impression: [facility] [address] XRay Report Signed Patient: Zaire Lujan Unit #: [id number] : 1960 Age/Sex: 60 / M ADM Date: 02/02/21 Loc: ER Room/Bed: Attending Dr: Ordering Provider/Ordering MD: Natali Minor MD Date of Service: 02/02/21 Procedure(s): XR chest 1V portable [id number] Accession Number(s): [id number] Report Number: [id number] PROCEDURE INFORMATION: Exam: XR Chest Exam date and time: 02/02/2021 11:40 PM Age: 60 years old Clinical indication: Sternal or substernal pain; Additional info: Cp x 2 days, near syncope episode from pain. HX of coronary artery disease TECHNIQUE: Imaging protocol: XR of the chest. Views: 1 view. COMPARISON: No relevant prior studies available. FINDINGS: Lungs: No focal airspace consolidation. Pleural spaces: Unremarkable. No pleural effusion. No pneumothorax. Heart/Mediastinum: Unremarkable. No cardiomegaly. Bones/joints: Cervical fusion. XR/XR chest 1V portable [id number] IMPRESSION: No focal airspace consolidation. EKG Data^: EKG 1: Attestation: I personally reviewed and interpreted this EKG as follows: EKG interpretation date: 02/02/21 EKG interpretation time: 23:39 Interpretation: nsr hr 94 with no stemi qrs 92 qtc 395 EKG 2: Attestation: I personally reviewed and interpreted this EKG as follows: EKG interpretation date: 02/03/21 EKG interpretation time: 01:51 Interpretation: nsr hr [address] or t wave abnormalities qrs 96 qtc 399 Discharge Plan Discharge Patient Disposition: Home Clinical Impression: Chest pain Qualifiers: Chest pain type: unspecified Qualified Code(s): R07.9 - Chest pain, unspecified Condition: Stable Prescriptions: No Action aspirin [Adult Low Dose Aspirin] 81 mg tablet,delayed release (DR/EC) 81 mg PO DAILY@0800 RF: 0 losartan 50 mg tablet See Rx Instructions .ROUTE .COMPLEX Qty: 90 RF: 1 carvedilol 12.5 mg tablet 12.5 mg PO Q12H Qty: 60 RF: 1 spironolactone 25 mg tablet 12.5 mg PO DAILY Qty: 30 RF: 1 nortriptyline 25 mg capsule 25 mg PO DAILY@0800 RF: 0 Lasix 20 mg tablet 20 mg PO BID Qty: 60 RF: 1 Discharge Orders: Discharge ED (Routine); Ordered 02/03/21 Ordered By: Natali Minor Referrals: Rajinder Kruse DO [Primary Care Provider] - Discharge Diet: Advance as tolerated Discharge Activity: Resume usual activity Patient Instructions: Chest Pain (ED) Coding Level of Care Code ED Lead Java Programmer for Chg Fwd Exam Comprehensive
[2021-02-02 23:49] VITALS: BP 124/71; PULSE 95; RESP 17; O2SAT 95
[2021-02-03] MEDS: nitroglycerin 0.4 mg sublingual Tablet SUBLINGUAL (00:10)
[2021-02-03 00:15] LABS: Basophils # 0.1 10^3/uL (0.0-0.1); Basophils % 0.5 %; Eosinophils # 0.1 10^3/uL (0.0-0.8); Eosinophils % 0.5 %; Hematocrit 41.5 % (42.0-52.0); Hemoglobin 13.8 g/dL (11.7-16.6); Lymphocytes # 1.4 10^3/uL (0.8-4.8); Lymphocytes % 10.6 %; Mean Corpuscular HGB Conc 33.3 g/dL (30.0-36.0); Mean Corpuscular Hemoglobin 29.3 pg (28.0-34.0); Mean Corpuscular Volume 88.1 fL (80-94); Mean Platelet Volume 9.5 fL (7.4-10.4); Monocytes # 0.8 10^3/uL (0.2-0.9); Monocytes % 6.1 %; Neutrophils # 10.76 10^3/uL (1.8-7.7); Neutrophils % 82.1 %; Nucleated Red Blood Cells % 0 %; Platelet Count 251 10^3/cmm (130-400); Red Blood Count 4.71 10^6/uL (4.1-5.3); Red Cell Distribution Width 13.3 % (12.1-15.1); White Blood Count 13.1 10^3/uL (4.0-10.0)
[2021-02-03 00:19] VITALS: BP 96/58; PULSE 108; RESP 21; O2SAT 94
[2021-02-03 00:21] LABS: D Dimer 0.55 ug/mIFEU (0-0.59)
[2021-02-03 00:25] LABS: Troponin(5th) Baseline 43 ng/L (0-15)
[2021-02-03 00:28] LABS: Alanine Aminotransferase 35 U/L (0-41); Albumin Level 4.2 g/dL (3.5-5.2); Alkaline Phosphatase 133 IU/L (40-130); Anion Gap 18.4 (5-19); Aspartate Amino Transferase 20 U/L (0-40); Blood Urea Nitrogen 34 mg/dL (8-23); Calcium 9.3 mg/dL (8.5-10.5); Carbon Dioxide 26 mmol/L (22-29); Chloride 92 mmol/L (98-107); Globulin 3.1 g/dL (1.3-4.6); Glomerular Filtration Rate 29.2 mL/min (90-130); Glucose 105 mg/dL (65-115); Osmolality Calculated 282 mOsm/kg (285-295); Potassium 4.4 mmol/L (3.5-5.1); Sodium 132 mmol/L (136-145); Total Bilirubin 0.5 mg/dL (0.15-1.2); Total Protein 7.3 g/dL (6.6-8.7)
[2021-02-03 00:30] VITALS: BP 101/62; PULSE 101; RESP 20; O2SAT 94
--- NOTE | 2021-02-03 00:46 | PM.HP ---
Providers/Chief Complaint Primary Care Provider: Rajinder Kruse DO Chief Complaint: chest pain and syncope History of Present Illness Zaire Lujan is a 60 year old male who carries history of ischemic cardiomyopathy, history of renal cell cancer status post nephrectomy, moderate to severe mitral valve regurgitation, triple-vessel disease as per recent cardiac cath report done by Dr. Narayanan presented today with chief complaint of syncope and chest pain. Medications/Allergies Home Medications Medication Instructions Recorded Confirmed Last Taken Type aspirin 81 mg tablet,delayed 81 mg PO DAILY@0800 01/06/20 01/24/21 01/16/21 08:00 History release nortriptyline 25 mg PO DAILY@0800 11/02/20 01/24/21 01/16/21 08:00 History losartan 50 mg tablet See Rx Instructions .ROUTE 12/16/20 01/24/21 01/17/21 00:00 Rx .COMPLEX #90 tab spironolactone 12.5 mg PO DAILY #30 tab 01/07/21 01/24/21 01/16/21 08:00 Rx carvedilol 12.5 mg tablet 12.5 mg PO Q12H #60 tab 01/17/21 01/24/21 01/17/21 00:00 Rx furosemide [Lasix] 20 mg PO BID #60 tab 01/17/21 01/24/21 Unknown Rx Allergies Allergy/AdvReac Type Severity Reaction Status Date / Time fluoxetine [From Prozac] Allergy Intermediate rash Verified 01/24/21 14:53 aspirin Allergy Mild headache Verified 01/24/21 14:53 codeine Allergy Mild gi upset Verified 01/24/21 14:53 hydromorphone [From Dilaudid] Allergy Mild itching Verified 01/24/21 14:53 PFSH Acute PFSH: Medical History Anxiety Aortic regurgitation Carcinoma of left kidney CHF (NYHA class III, ACC/AHA stage C) CVA (cerebral vascular accident) Enrolled in chronic care management GERD (gastroesophageal reflux disease) Hypertension Hypothyroid Mitral regurgitation Tricuspid regurgitation Surgical History History of neck surgery Family History Grandfather CAD (coronary artery disease) Denies family history of Diabetes Stroke Social History Smoking and tobacco status: former smoker Quit status (tobacco): has quit using tobacco Former quit date comment: smoked for 45 years Alcohol intake: current Alcohol intake frequency: holidays/special occasions only Vitals/I&O/Wt Last Vital Signs Temp 98.3 F 02/02/21 23:35 Pulse 98 02/02/21 23:35 Resp 16 02/02/21 23:35 BP 125/70 02/02/21 23:35 Pulse Ox 97 02/02/21 23:35 Weight last 48 hrs Weight 61.689 kg Data : 02/02/21 23:54 02/02/21 23:54 Coding Level of Care Code Acute Non Categorical 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
[2021-02-03] MEDS: enoxaparin 60 mg/0.6 mL Syringe SUBCUT (01:07)
[2021-02-03] MEDS: sodium chloride 0.9% 1,000 ML 999 ML IV (01:10)
[2021-02-03 01:30] VITALS: BP 117/66; PULSE 96; RESP 22; O2SAT 98
--- NOTE | 2021-02-03 01:38 | ECG_ITS ---
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 Measurements Intervals [place] Rate: 98 P: 0 [place]: 190 QRS: 23 QRSD: 96 T: -10 QT: 343 QTc: 440 Interpretive Statements SINUS RHYTHM WITH OCCASIONAL VENTRICULAR PREMATURE COMPLEXES PROBABLE LATERAL MYOCARDIAL INFARCTION , PROBABLY OLD [35 ms Q WAVE IN I/aVL/V5/V6] Compared to ECG 02/02/2021 23:39:50 Ventricular premature complex(es) now present Left ventricular hypertrophy no longer present ST (T wave) deviation no longer present Myocardial infarct finding still present Electronically Signed On 02-03-2021 18:34:40 CDT by Melisa Gonzalez M.D. [id number]
[2021-02-03 02:00] VITALS: BP 123/73; PULSE 99; RESP 22; O2SAT 96
[2021-02-03 02:15] LABS: Troponin 5 2HR 34.01 ng/L (0-15)
[2021-02-03 02:46] VITALS: BP 113/73; PULSE 101; RESP 21; TEMP 36.8; O2SAT 95
== END 2021-02-03 02:52 | disposition home or self-care (01) ==
PROVIDERS: Emergency Provider Emergency Medicine; PCP Family Medicine
DX: R07.9 Chest pain, unspecified (principal); R55 Syncope and collapse; Z87.891 Personal history of nicotine dependence; Z86.73 Personal history of transient ischemic attack (TIA), and cerebral infarction without residual deficits; I50.9 Heart failure, unspecified
CPT/HCPCS: 36415; 71045; 80053; 84484; 85025; 85378; 93005; 96360; 96372; 99284; J1650; J7030

== ENCOUNTER → 2021-03-24 13:31 | Outpatient (BNVA) | payer MEDICARE, SELFPAY | PROVIDERS: PCP Family Medicine; Visit Provider Internal Medicine Cardiovascular Disease | DX: Z01.812 Encounter for preprocedural laboratory examination (principal); Z20.822 Contact with and (suspected) exposure to COVID-19 | CPT/HCPCS: 87635 ==

== ENCOUNTER 2021-03-28 07:56 | Outpatient (CLI) | payer MEDICARE, SELFPAY ==
--- NOTE | 2021-03-28 13:11 | PFTS_ITS ---
Date of Study:03/28/21 Date of Dictation: 03/29/21 MECHANICS: Post bronchodilator Forced vital capacity (FVC) is reduced. Post bronchodilator Forced expiratory volume in one second (FEV1) is moderately reduced 68%. FEV1/FVC is normal. There is no significant response to bronchodilators. FLOW VOLUME LOOP: normal . LUNG VOLUMES: Total lung capacity (TLC) is mildly reduced 71% . Residual volume (RV) is normal. DIFFUSING CAPACITY FOR CARBON MONOXIDE: normal . INTERPRETATION: The pulmonary function tests are consistent with extrathoracic restrictive lung disease. There is moderate restriction on spirometry and mild restriction on lung volumes. Gas exchange (DLCO) is normal. Clinical Correlation recommended. [facility]
== END 2021-03-28 07:57 | disposition home or self-care (01) ==
PROVIDERS: PCP Family Medicine; Visit Provider Thoracic Surgery (Cardiothoracic Vascular Surgery)
DX: Z01.818 Encounter for other preprocedural examination (principal); I34.0 Nonrheumatic mitral (valve) insufficiency; I25.10 Atherosclerotic heart disease of native coronary artery without angina pectoris
CPT/HCPCS: 94060; 94726; 94729; J7611

== ENCOUNTER 2021-04-28 12:55 | Outpatient (CLI) | payer MEDICARE, SELFPAY ==
--- NOTE | 2021-04-28 13:03 | USCV_ITS ---
Zaire Lujan Age: 60 Gender: M : 1960 Exam Date: 04/28/2021 13:11 Ordering Phys: Oswald Amos MD Technologist: [place] [facility] [place]: PRE OP CABG Risk Factors: Previous Vascular Surgery: Right Brachial BP: / Left Brachial BP: / Right Left Velocity (cm/s) Spectral Plaque Velocity (cm/s) Spectral Plaque Syst/Diast Broadening Syst/Diast Broadening 104.70/16.50 Prox CCA 101.40/ 17.60 92.60/ 20.90 Mid CCA 99.20 / 19.80 87.10/ 18.70 Homo Distal CCA 92.60 / 16.50 Homo 99.20/ 20.90 Hetro Prox ICA 109.20/ 24.30 Hetro 105.80/27.60 Mid ICA 125.70/ 32.00 121.30/37.50 Distal ICA 100.00/ 31.00 122.40 ECA 106.90 1.16 ICA/CCA 1.21 Antegrade Vertebral Antegrade 69.50/ 19.80 cm/s 79.40/ 0.00 cm/s Tri Subclavian Tri 84.90 76.00 FINDINGS Mild diffuse plaques at the bifurcations and distal common carotid arteries bilaterally. Antegrade flow in the vertebral arteries bilaterally Normal Doppler flow velocities in the external carotid, vertebral and subclavian arteries bilaterally CONCLUSIONS Mild diffuse plaques at the bifurcations and distal common carotid arteries bilaterally, suggesting less than 50% stenosis Dr Aleida Combs MD [facility] (Electronically Signed) Final Date: 29 April 2021 18:24 S
--- NOTE | 2021-04-28 13:03 | USCV_ITS ---
Zaire Lujan Age: 60 Gender: M : 1960 Exam Date: 04/28/2021 13:24 Ordering Phys: Oswald Amos MD Technologist: Exam Location: [facility] [place]_ Indication: PRE OP RIGHT LEFT LOWER EXTREMITY Diameter Diameter (cm) (cm) 0.30 High Thigh 0.40 0.31 Mid Thigh 0.30 0.29 Above Knee 0.27 0.26 Below Knee 0.25 0.25 Mid Calf 0.23 0.25 Ankle 0.24 RIGHT LEFT Findings Is a found to be easily compressible. No evidence of thrombosis Conclusions Normal caliber lower extremity veins bilaterally with no evidence of thrombosis Dr Aleida Combs MD [facility] (Electronically Signed) Final Date: 28 April 2021 18:51 S
== END 2021-04-28 12:56 | disposition home or self-care (01) ==
LOC: RAD 12:56
PROVIDERS: PCP Family Medicine; Visit Provider Thoracic Surgery (Cardiothoracic Vascular Surgery)
DX: Z01.818 Encounter for other preprocedural examination (principal); I34.0 Nonrheumatic mitral (valve) insufficiency; I25.10 Atherosclerotic heart disease of native coronary artery without angina pectoris; I65.23 Occlusion and stenosis of bilateral carotid arteries
CPT/HCPCS: 93880; 93970

== ENCOUNTER → 2021-06-10 14:23 | Outpatient (BNVA) | payer MEDICARE, SELFPAY | PROVIDERS: PCP Family Medicine; Visit Provider Thoracic Surgery (Cardiothoracic Vascular Surgery) | DX: Z01.812 Encounter for preprocedural laboratory examination (principal); Z20.822 Contact with and (suspected) exposure to COVID-19 | CPT/HCPCS: 87635 ==

== ENCOUNTER → 2021-08-09 11:33 | Outpatient (BNVA) | payer MEDICARE, SELFPAY | PROVIDERS: PCP Family Medicine; Visit Provider Nurse Practitioner Family | DX: I50.9 Heart failure, unspecified (principal); I11.0 Hypertensive heart disease with heart failure; Z87.891 Personal history of nicotine dependence | CPT/HCPCS: 80048; 83880 ==

== ENCOUNTER → 2021-10-24 15:35 | Outpatient (BNVA) | payer MEDICARE, SELFPAY | PROVIDERS: PCP Family Medicine; Visit Provider Internal Medicine Cardiovascular Disease | DX: I50.9 Heart failure, unspecified (principal); I25.10 Atherosclerotic heart disease of native coronary artery without angina pectoris; E78.5 Hyperlipidemia, unspecified; Z98.890 Other specified postprocedural states | CPT/HCPCS: 80053; 80061; 83721; 83735; 83880; 85025 ==

== ENCOUNTER → 2022-01-24 14:25 | Outpatient (BNVA) | payer MEDICARE, SELFPAY | PROVIDERS: PCP Family Medicine; Visit Provider Internal Medicine Cardiovascular Disease | DX: I11.0 Hypertensive heart disease with heart failure (principal); I50.9 Heart failure, unspecified; I73.9 Peripheral vascular disease, unspecified; I25.10 Atherosclerotic heart disease of native coronary artery without angina pectoris; E78.5 Hyperlipidemia, unspecified; Z98.890 Other specified postprocedural states; I35.1 Nonrheumatic aortic (valve) insufficiency; Z95.1 Presence of aortocoronary bypass graft; Z87.891 Personal history of nicotine dependence | CPT/HCPCS: 99214 ==

== ENCOUNTER 2022-01-25 12:12 | Outpatient (CLI) | payer MEDICARE, SELFPAY ==
--- NOTE | 2022-01-25 13:00 | USCV_ITS ---
Zaire Lujan Age: 61 Gender: M : 1960 Exam Date: 01/25/2022 12:28 Ordering Phys: Melisa Gonzalez MD ([email or web address]) Technologist: [place] [facility] [place]: Congestive heart failure, status post mitral valve repair and bypass surgery BP: 140 / 89 HR: 61 Rhythm: Sinus Technical Quality: Good MEASUREMENTS (Male / Female) Normal Values 2D ECHO LV Diastolic Diameter PLAX 5.6 cm 4.2 - 5.9 / 3.9 - 5.3 cm LV Systolic Diameter PLAX 5.1 cm IVS Diastolic Thickness 1.4 cm 0.6 - 1.0 / 0.6 - 0.9 cm IVS Systolic Thickness 1.6 cm LVPW Diastolic Thickness 1.0 cm 0.6 - 1.0 / 0.6 - 0.9 cm LVPW Systolic Thickness 1.4 cm LVOT Diameter 2.0 cm LV Ejection Fraction 2D Teich 16.6 % LV Ejection Fraction MOD 2C 21.9 % LV Ejection Fraction 2C AL 20.7 % LA Diameter 3.8 cm Aorta at Sinotubular Diameter 3.5 cm IVC Diameter 1.1 cm M-MODE Aortic Annulus Diameter 4.1 cm LA Ao Ratio MM 1.0 MV E Point Septal Separation 1.9 cm DOPPLER AV Peak Velocity 93.0 cm/s LVOT Peak Velocity 85.0 cm/s AV Area Cont Eq vti 3.0 cm squared AV Area Cont Eq pk 2.9 cm squared MV Area PHT 5.0 cm squared Mitral E to A Ratio 1.6 MV E' Velocity 64.0 cm/s Mitral E to MV E' Ratio 19.9 Mitral E to LV E' Lateral Ratio 18.4 Mitral E to LV E' Septal Ratio 21.7 TR Peak Velocity 234.7 cm/s TR Peak Gradient 22.0 mmHg TV Peak E Velocity 100.0 cm/s Right Atrial Pressure 8.0 mmHg Pulmonary Artery Systolic Pressu 30.0 mmHg PV Peak Velocity 103.0 cm/s FINDINGS Left Ventricle Normal left ventricular cavity size and upper normal left ventricular wall thickness. Moderately decreased left ventricular systolic function. Left ventricular ejection fraction is estimated at 35 %. There is severe hypokinesis of inferior, infero-septal and apical guadarrama. There is Grade II diastolic dysfunction, moderately elevated filling pressures. Abnormal (paradoxical) septal motion consistent with postoperative status. Right Ventricle Normal right ventricular size and systolic function. Right ventricular systolic pressure 30 mmHg. Right Atrium Normal right atrial size. Right atrial pressure is 3 mmHg. Left Atrium Mildly increased left atrial size. Mitral Valve Moderately thickened mitral valve. Restricted motion of posterior mitral valve leaflet. Status post mitral valve repair ( mitral valve repair with 28 mm physioflex band). No mitral valve stenosis. Mild to moderate mitral valve regurgitation. Aortic Valve Mildly thickened trileaflet aortic valve. No aortic valve stenosis. Mild to moderate aortic valve regurgitation. Tricuspid Valve Structurally normal tricuspid valve. Moderate tricuspid valve regurgitation. Pulmonic Valve Structurally normal pulmonic valve. No pulmonary valve stenosis. Trace pulmonary valve regurgitation. Pericardium No pericardial effusion. Aorta Normal size aortic root and proximal ascending aorta. IVC Normal IVC dimension with >50% respiratory change of the inferior vena cava. CONCLUSIONS 1. Normal left ventricular cavity size and upper normal left ventricular wall thickness. Moderately decreased left ventricular systolic function. Left ventricular ejection fraction is estimated at 35 %. There is severe hypokinesis of inferior, infero-septal and apical guadarrama. There is Grade II diastolic dysfunction, moderately elevated filling pressures. 2. Mild to moderate aortic valve regurgitation. 3. Status post mitral valve repair ( mitral valve repair with 28 mm physioflex band). Mild to moderate mitral valve regurgitation. 4. Moderate tricuspid valve regurgitation. 5. When compared to previous echocardiogram dated 12/07/2020; left ventricular systolic function may have improved somewhat and mitral valve has been repaired. Melisa Gonzalez MD (Electronically Signed) Final Date: 30 Jan 2022 21:35 S
== END 2022-01-25 12:13 | disposition home or self-care (01) ==
LOC: RAD 12:15
PROVIDERS: PCP Family Medicine; Visit Provider Internal Medicine Cardiovascular Disease
DX: Z98.890 Other specified postprocedural states (principal)
CPT/HCPCS: 93306

== ENCOUNTER 2022-09-18 19:34 | Emergency (ER) | payer MEDICARE, SELFPAY ==
[2022-09-18 19:38] VITALS: BP 115/66; PULSE 79; RESP 18; TEMP 36.5; O2SAT 97; BMI 19.5
--- NOTE | 2022-09-18 19:39 | ED_ITS ---
HPI - Chest Pain General: Chief Complaint: Chest Pain Stated Complaint: chest pain, high bp Time Seen by Provider: 09/18/22 19:39 History of Present Illness: 62-year-old gentleman with complex past medical history including heart failure with reduced ejection fraction, CAD status post CABG, mitral regurgitation status post valve repair, aortic valvular heart disease, history of left renal carcinoma status post nephrectomy, history of tobaccoism presenting to the emergency department due to chest pain and elevated blood pressure. No symptoms with gradual onset for the last 3 days with some radiation to the left arm. He did take medication earlier which improved his chest pain associate with improvement in blood pressure. Intensity symptoms at worst was moderate. Course is improved. No other specific changes in health, exacerbating, or alleviating factors identified. Onset (ago): day(s) Prior episodes: Yes Onset: during rest Pain location: substernal Pain radiation: left arm Quality: tightness and aching Relieving factors: medication-other Exacerbating factors: nothing Associated symptoms: Reports no associated symptoms Review of Systems General: Reports: 10 or more systems reviewed and unremarkable except in HPI and below PFSH ED PFSH: Medical History Anxiety Aortic regurgitation CAD (coronary artery disease) Carcinoma of left kidney CHF (NYHA class III, ACC/AHA stage C) CVA (cerebral vascular accident) Dyslipidemia Enrolled in chronic care management GERD (gastroesophageal reflux disease) Hypertension Hypothyroid Mitral regurgitation Tricuspid regurgitation Surgical History History of neck surgery S/P mitral valve repair Family History Grandfather CAD (coronary artery disease) Denies family history of Diabetes Stroke Social History Smoking and tobacco status: former smoker Quit status (tobacco): has quit using tobacco Former quit date comment: smoked for 45 years Alcohol intake: current Alcohol intake frequency: holidays/special occasions only Physical Exam Const: COMMON NORMALS: alert GENERAL APPEARANCE: cooperative and well developed HENMT: COMMON NORMALS: normocephalic and atraumatic HEAD & SCALP: normocephalic and atraumatic Eye: COMMON NORMALS: conjunctivae normal CONJUNCTIVA: Yes conjunctivae normal SCLERA: sclerae normal Neck/C-Spine: COMMON NORMALS: supple GENERAL: Yes trachea midline Resp: COMMON NORMALS: clear to auscultation bilaterally EFFORT & INSPECTION: Yes able to speak in complete sentences AUSCULTATION: clear to auscultation bilaterally Cardio: COMMON NORMALS: regular rate and regular rhythm RATE: regular rate RHYTHM: regular rhythm GI: COMMON NORMALS: Soft to palpation PALPATION: Yes Soft to palpation and No Tenderness to palpation present (GI) Extremity: GENERAL: Yes normal exam except as noted and No edema Neuro: COMMON NORMALS: moves all extremities SENSORIUM/ORIENTATION: Yes alert and No Orientation impaired Psych: COMMON NORMALS: mental status grossly normal and Normal thought process present THOUGHT PROCESS: Normal thought process present Course Vital Signs: Vital signs: Vital Signs Temperature 97.7 F 09/18/22 19:38 Pulse Rate 72 09/18/22 23:41 Respiratory Rate 18 09/18/22 23:41 Blood Pressure 128/75 09/18/22 23:41 Pulse Oximetry 96 09/18/22 23:41 Oxygen Delivery Me thod 09/18/22 21:57 MDM - Chest Pain Medical Decision Making 62-year-old gentleman presenting with pain associated with high blood pressure. Exam as above. EKG shows sinus rhythm with nonspecific ST segment abnormalities, no STEMI. No significant hematologic or metabolic abnormality to explain symptoms. Negative range delta troponin at 2 hours. BNP improved from prior. Rapid viral studies negative. Chest x-ray with no lobar consolidation or pneumothorax. Given prior cardiac evaluation I did discuss the case with cardiology on-call. Patient can adequately be treated in the outpatient setting with close follow-up and strict return cautions. We will plan to adjust patient's antihypertensive. Patient is comfortable with this plan. Most likely etiology of patient symptoms is unclear though may be related to hypertension creating chest pain without evidence of endorgan dysfunction. The results of ED evaluation were discussed with the patient including prescriptions and/or symptomatic cares (if applicable) including appropriate and responsible use, followup plan, and return precautions. The patient verbalized understanding and felt safe for discharge. Medical Records I reviewed the patient's medical records. Lab Data I reviewed the patient's lab results. 09/18/22 19:53 09/18/22 19:53 Radiology Impressions Chest X-Ray 09/18/22 19:43 IMPRESSION: 1. No acute cardiopulmonary process. 2. Incidental/nonacute findings are listed in the report. Laboratory Results WBC 9.8 10^3/uL (4.0-10.0) 09/18/22 19:53 RBC 4.66 10^6/uL (4.1-5.3) 09/18/22 19:53 Hgb 14.2 g/dL (11.7-16.6) 09/18/22 19:53 Hct 45.0 % (42.0-52.0) 09/18/22 19:53 MCV 96.6 fl (80-94) H 09/18/22 19:53 MCH 30.5 pg (28.0-34.0) 09/18/22 19:53 MCHC 31.6 g/dL (30.0-36.0) 09/18/22 19:53 RDW 13.2 % (12.1-15.1) 09/18/22 19:53 Plt Count 243 10^3/cmm (130-400) 09/18/22 19:53 MPV 9.3 fL (7.4-10.4) 09/18/22 19:53 Neut % (Auto) 64.6 % 09/18/22 19:53 Lymph % (Auto) 23.7 % 09/18/22 19:53 [place] % (Auto) 8.9 % 09/18/22 19:53 Eos % (Auto) 2.0 % 09/18/22 19:53 Baso % (Auto) 0.5 % 09/18/22 19:53 Neut # (Auto) 6.35 10^3/uL (1.8-7.7) 09/18/22 19:53 Lymph # (Auto) 2.3 10^3/uL (0.8-4.8) 09/18/22 19:53 [place] # (Auto) 0.9 10^3/uL (0.2-0.9) 09/18/22 19:53 Eos # (Auto) 0.2 10^3/uL (0.0-0.8) 09/18/22 19:53 Baso # (Auto) 0.1 10^3/uL (0.0-0.1) 09/18/22 19:53 Nucleated RBC % (auto) 0 % 09/18/22 19:53 Nucleated RBCs # 0.0 /100WBC 09/18/22 19:53 Sodium 142 mmol/L (136-145) 09/18/22 19:53 Potassium 4.0 mmol/L (3.5-5.1) 09/18/22 19:53 Chloride 102 mmol/L (98-107) 09/18/22 19:53 Carbon Dioxide 29 mmol/L (22-29) 09/18/22 19:53 Anion Gap 15.0 (5-19) 09/18/22 19:53 BUN 17 mg/dL (8-23) 09/18/22 19:53 Creatinine 0.9 mg/dL (0.7-1.2) 09/18/22 19:53 GFR Calculation 85.5 mL/min (90-130) L 09/18/22 19:53 Glucose 66 mg/dL (65-115) 09/18/22 19:53 Calculated Osmolality 294 mOsm/kg (285-295) 09/18/22 19:53 Calcium 9.4 mg/dL (8.5-10.5) 09/18/22 19:53 Total Bilirubin 0.3 mg/dL (0.15-1.2) 09/18/22 19:53 AST 24 U/L (0-40) 09/18/22 19:53 ALT 24 U/L (0-41) 09/18/22 19:53 Alkaline Phosphatase 98 U/L (40-130) 09/18/22 19:53 Troponin T Baseline 18 ng/L (0-15) H 09/18/22 19:53 Troponin T 120 Minute 15.61 ng/L (0-15) H 09/18/22 21:26 Delta Troponin T -2.39 ABS# (0-10) L 09/18/22 21:26 NT-Pro-B Natriuret Pep 1002 pg/mL (0-125) H 09/18/22 19:53 Total Protein 7.5 g/dL (6.6-8.7) 09/18/22 19:53 Albumin 4.7 g/dL (3.5-5.2) 09/18/22 19:53 Globulin 2.8 g/dL (1.3-4.6) 09/18/22 19:53 Influenza Type A Ag negative (Negative) 09/18/22 21:38 Influenza Type B Ag negative (Negative) 09/18/22 21:38 SARS-CoV-2 Ag (Rapid) negative (Negative) 09/18/22 21:38 Discharge Plan Discharge Patient Disposition: Home Clinical Impression: Chest pain, Hypertension Condition: Stable Prescriptions: New losartan 100 mg tablet 100 mg PO DAILY Qty: 30 0RF Discontinued losartan 50 mg tablet 50 mg PO DAILY Qty: 90 1RF No Action aspirin [Adult Low Dose Aspirin] 81 mg tablet,delayed release (DR/EC) 81 mg PO DAILY@0800 spironolactone [Aldactone] 25 mg tablet 25 mg PO DAILY Qty: 90 3RF carvedilol 25 mg tablet 25 mg PO BID Qty: 180 3RF atorvastatin 20 mg tablet 20 mg PO DAILY Qty: 90 3RF clonidine HCl 0.1 mg tablet See Rx Instructions .ROUTE .COMPLEX Qty: 60 11RF Dose Instruction: TAKE ONE TABLET BY MOUTH TWICE A DAY NEEDED FOR HYPERTENSIVE EMERGENCY Rx Instructions: TAKE ONE TABLET BY MOUTH TWICE A DAY NEEDED FOR HYPERTENSIVE EMERGENCY pantoprazole 40 mg tablet,delayed release (DR/EC) 40 mg PO DAILY Qty: 180 3RF Discharge Orders: Discharge ED (Routine); Ordered 09/18/22 Ordered By: Zaire Sanchez Referrals: Rajinder Kruse DO [Primary Care Provider] - Discharge Diet: Usual diet Discharge Activity: Increase activity as tolerated Patient Instructions: Chest Pain (ED), Hypertension (ED) Activity Restrictions/Additional Instructions: Thank you for visiting the emergency department. You were seen and evaluated for chest pain associated with high blood pressure. The exact cause of these symptoms are unclear however based on ED evaluation and after discussion with cardiology service does not require inpatient management. Please follow-up with cardiology and your primary care provider. I will increase your losartan from 50 mg daily to 100 mg daily. Please keep a log of your blood pressure. Return to the emergency department for recurrence of symptoms or anything else that you are concerned about and feel needs emergency department evaluation. Coding Level of Care Code ED Garden Machinery Mechanic 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
--- NOTE | 2022-09-18 19:43 | XRR_ITS ---
PROCEDURE INFORMATION: Exam: XR Chest Exam date and time: 09/18/2022 7:54 PM Age: 62 years old Clinical indication: Pain; Chest pressure; Prior surgery; Additional info: Chest pain TECHNIQUE: Imaging protocol: Radiologic exam of the chest. Views: 1 view. COMPARISON: CR XR chest 1V portable [id number] 02/02/2021 11:50 PM FINDINGS: Tubes, catheters and devices: Surgical clips in the epigastric region. Lungs: Bilateral calcified hilar lymph nodes are stable. Stable calcified granulomas in both lungs. No focal consolidation. No pulmonary edema. Pleural spaces: No pleural effusion. No pneumothorax. Heart/Mediastinum: Stable moderate enlargement of the cardiac silhouette. Mediastinal contours are unremarkable. Vasculature: Stable vascular calcifications in the aorta. Bones/joints: The patient has had an interval sternotomy. Stable degenerative changes in the spine and shoulders. XR/XR chest 1V portable [id number] IMPRESSION: 1. No acute cardiopulmonary process. 2. Incidental/nonacute findings are listed in the report.
--- NOTE | 2022-09-18 19:53 | ECG_ITS ---
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 Measurements Intervals [place] Rate: 79 P: 76 CA: 174 QRS: 98 QRSD: 87 T: 230 QT: 373 QTc: 429 Interpretive Statements SINUS RHYTHM WITH OCCASIONAL VENTRICULAR PREMATURE COMPLEXES POSSIBLE LEFT ATRIAL ENLARGEMENT [-0.1mV P-WAVE IN V1/V2] BORDERLINE RIGHT AXIS DEVIATION [QRS AXIS > 90] PROBABLE INFERIOR MYOCARDIAL INFARCTION , OF INDETERMINATE AGE [35 ms Q WAVE IN II/aVF] Compared to ECG 02/03/2021 01:51:48 No significant changes Electronically Signed On 09-18-2022 20:34:05 YIELD CLERK by Aleida Combs M.D. [id number]
[2022-09-18 19:56] VITALS: BP 148/87; PULSE 83; RESP 23; O2SAT 98
[2022-09-18 20:06] LABS: Basophils # 0.1 10^3/uL (0.0-0.1); Basophils % 0.5 %; Eosinophils # 0.2 10^3/uL (0.0-0.8); Hemoglobin 14.2 g/dL (11.7-16.6); Lymphocytes # 2.3 10^3/uL (0.8-4.8); Lymphocytes % 23.7 %; Mean Corpuscular HGB Conc 31.6 g/dL (30.0-36.0); Mean Corpuscular Hemoglobin 30.5 pg (28.0-34.0); Mean Corpuscular Volume 96.6 fl (80-94); Mean Platelet Volume 9.3 fL (7.4-10.4); Monocytes # 0.9 10^3/uL (0.2-0.9); Monocytes % 8.9 %; Neutrophils # 6.35 10^3/uL (1.8-7.7); Neutrophils % 64.6 %; Nucleated Red Blood Cells % 0 %; Platelet Count 243 10^3/cmm (130-400); Red Blood Count 4.66 10^6/uL (4.1-5.3); Red Cell Distribution Width 13.2 % (12.1-15.1); White Blood Count 9.8 10^3/uL (4.0-10.0)
[2022-09-18 20:28] LABS: Troponin(5th) Baseline 18 ng/L (0-15)
[2022-09-18 20:35] LABS: Alanine Aminotransferase 24 U/L (0-41); Albumin Level 4.7 g/dL (3.5-5.2); Alkaline Phosphatase 98 U/L (40-130); Aspartate Amino Transferase 24 U/L (0-40); Blood Urea Nitrogen 17 mg/dL (8-23); Calcium 9.4 mg/dL (8.5-10.5); Carbon Dioxide 29 mmol/L (22-29); Chloride 102 mmol/L (98-107); Globulin 2.8 g/dL (1.3-4.6); Glomerular Filtration Rate 85.5 mL/min (90-130); Glucose 66 mg/dL (65-115); NT Pro B Type Natriuretic Pept 1002 pg/mL (0-125); Osmolality Calculated 294 mOsm/kg (285-295); Sodium 142 mmol/L (136-145); Total Bilirubin 0.3 mg/dL (0.15-1.2); Total Protein 7.5 g/dL (6.6-8.7)
--- NOTE | 2022-09-18 21:27 | ECG_ITS ---
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 Measurements Intervals [place] Rate: 62 P: 71 MA: 184 QRS: 67 QRSD: 87 T: 124 QT: 413 QTc: 421 Interpretive Statements SINUS RHYTHM INFERIOR MYOCARDIAL INFARCTION , PROBABLY OLD [40+ ms Q WAVE AND/OR ST/T ABNORMALITY IN II/aVF] MODERATE T-WAVE ABNORMALITY, CONSIDER LATERAL ISCHEMIA [-0.1+ mV T-WAVE IN I/aVL/V5/V6] Compared to ECG 09/18/2022 19:53:08 T-wave abnormality now present Possible ischemia now present Ventricular premature complex(es) no longer present Myocardial infarct finding still present Electronically Signed On 09-19-2022 12:02:06 BANK [employer] SAVINGS SECURITIES TRADER by Gokul White M.D. [id number]
[2022-09-18 21:57] VITALS: BP 107/62; PULSE 62; RESP 12; O2SAT 98
[2022-09-18 22:07] LABS: Troponin 5 2HR 15.61 ng/L (0-15)
[2022-09-18 22:08] LABS: Influenza A by IFA negative (Negative); Influenza B by IFA negative (Negative); SARS Covid-2 Antigen negative (Negative)
[2022-09-18 22:24] LABS: Troponin 5 2HR Delta -2.39 ABS# (0-10)
[2022-09-18 23:41] VITALS: BP 128/75; PULSE 72; RESP 18; O2SAT 96
== END 2022-09-18 23:43 | disposition home or self-care (01) ==
PROVIDERS: Emergency Provider Emergency Medicine; PCP Family Medicine
DX: R07.9 Chest pain, unspecified (principal); Z79.82 Long term (current) use of aspirin; Z87.891 Personal history of nicotine dependence; I25.10 Atherosclerotic heart disease of native coronary artery without angina pectoris; I11.0 Hypertensive heart disease with heart failure; I50.9 Heart failure, unspecified; Z86.73 Personal history of transient ischemic attack (TIA), and cerebral infarction without residual deficits; E78.5 Hyperlipidemia, unspecified; Z20.822 Contact with and (suspected) exposure to COVID-19
CPT/HCPCS: 71045; 80053; 83880; 84484; 85025; 87426; 87804; 93005; 99285

== ENCOUNTER → 2022-09-21 14:48 | Outpatient (BNVA) | payer MEDICARE, SELFPAY | PROVIDERS: PCP Family Medicine; Visit Provider Nurse Practitioner Family | DX: I25.10 Atherosclerotic heart disease of native coronary artery without angina pectoris (principal); Z87.891 Personal history of nicotine dependence; I11.0 Hypertensive heart disease with heart failure; I50.9 Heart failure, unspecified | CPT/HCPCS: 99214 ==

== ENCOUNTER 2022-09-23 11:54 | Emergency (ER) | payer MEDICARE, SELFPAY ==
[2022-09-23 12:15] VITALS: BP 130/78; PULSE 76; RESP 16; TEMP 36.7; O2SAT 99
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
--- NOTE | 2022-09-23 14:26 | W.ED.EXTPRO ---
Documented by User: ELY Araujo 09/23/22 15:07 HPI - Extremity Problem General: Chief complaint: Extremity Injury, Upper Stated complaint: both hands injured Time Seen by Provider: 09/23/22 12:28 History of Present Illness: Patient is a 62-year-old [id number] male that presents to the emergency department with bilateral hand pain. Onset earlier today. Patient states he became upset and was punching the floor. Since that time he has had increased pain in the dorsal aspect of the hand bilaterally and he has developed swelling and ecchymosis, left greater than right. Associated symptoms: Deny chest pain, fever(s) or rash Review of Systems General: Reports: 10 or more systems reviewed and unremarkable except in HPI and below Const: Denies: fever(s), chills, change in appetite, change in weight, fatigue or malaise Eyes: Denies: change in vision, eye discomfort, eye discharge or eye redness ENMT: Denies: throat pain, enlarged tonsils, odynophagia, hoarseness, ear or mastoid pain, ear discharge, change in hearing, tinnitus, nasal discharge, nasal congestion, post nasal drip or sinus pain Card: Denies: chest pain, palpitations, irregular heart rhythm, edema, dyspnea on exertion, orthopnea or leg pain with exertion Resp: Denies: dyspnea, productive cough, non-productive cough, wheezing, stridor or chest congestion GI: Denies: abdominal pain, nausea, vomiting, dysphagia, diarrhea, constipation, bloating, GI cramping or hematochezia : Denies: flank pain, dysuria, urinary frequency, urinary urgency, urinary hesitancy, oliguria or hematuria Musc: Denies: neck pain, back pain, extremity pain, joint pain, joint swelling, joint redness, joint warmth or muscle weakness Skin/Breast: Denies: rash, pruritus, erythema, photosensitivity or new lesions Neuro: Denies: headache(s), numbness in extremities, weakness in extremities, sensory changes, lack of coordination, difficulty walking, frequent falls, dizziness, confusion, Slurred speech present, difficulty communicating thoughts, seizure-like activity or involuntary movements Endo: Denies: polyuria, polydipsia or tired all the time Sudarshan/Lymph: Denies: easy bruising or easy bleeding PFSH ED PFSH: Medical History Anxiety Aortic regurgitation CAD (coronary artery disease) Carcinoma of left kidney CHF (NYHA class III, ACC/AHA stage C) CVA (cerebral vascular accident) Dyslipidemia Enrolled in chronic care management GERD (gastroesophageal reflux disease) Hypertension Hypothyroid Mitral regurgitation Tricuspid regurgitation Surgical History History of neck surgery S/P mitral valve repair Family History Grandfather CAD (coronary artery disease) Denies family history of Diabetes Stroke Social History Smoking and tobacco status: former smoker Quit status (tobacco): has quit using tobacco Former quit date comment: smoked for 45 years Alcohol intake: current Alcohol intake frequency: holidays/special occasions only Physical Exam Narrative: EXAM NARRATIVE: Is alert and oriented x3 No acute distress Const: OTHER: Afebrile and vital signs stable. Patient is cooperative and calm HENMT: OTHER: Atraumatic head and face Neck/C-Spine: COMMON NORMALS: full ROM, supple, no meningeal signs and no JVD Lymph: LYMPHATIC: no lymphadenopathy noted Chest: COMMONS NORMALS: normal inspection of the chest Resp: COMMON NORMALS: normal respiratory effort, No retractions and No use of accessory muscles Cardio: COMMON NORMALS: no JVD, regular rate and regular rhythm RATE: regular rate RHYTHM: regular rhythm GI: COMMON NORMALS: Normal to inspection, nondistended, normoactive bowel sounds present : COMMON NORMALS: Yes no CVA tenderness BLADDER/KIDNEY EXAM: Yes no CVA tenderness Back/Pelvis: COMMON NORMALS: no CVA tenderness, thoracic and lumbar spine normal to inspection, no thoracic nor lumbar tenderness, thoraco-lumbar ROM normal and straight leg raise negative bilaterally Extremity: COMMON NORMALS: full ROM NARRATIVE EXTREMITY EXAM: Bilateral upper extremities: Skin is clean dry and intact Edema, ecchymosis noted to the left hand Tenderness to palpation over the fourth and fifth metacarpal bones of the left hand Dorsal aspect of right hand with ecchymosis Tenderness to palpation over dorsum of hand Patient is able to flex and extend the wrist Patient is able to give a thumbs up, make an okay sign, cross fingers, abduct fingers and make a fist bilateral hands Sensation is intact to light touch at median, radial, ulnar nerve distribution Radial pulses palpable and cap refills less than 3 seconds Neuro: MENINGEAL SIGNS: Yes no meningeal signs Course Vital Signs: Vital signs: Vital Signs Temperature 98.1 F 09/23/22 12:15 Pulse Rate 70 09/23/22 15:52 Respiratory Rate 16 09/23/22 15:52 Blood Pressure 130/78 09/23/22 12:15 Pulse Oximetry 98 09/23/22 15:52 MDM - Extremity (Nontraumatic) Medical Decision Making Differential diagnoses include fracture, fracture dislocation, contusions, Patient was evaluated in the emergency department today for complaints of bilateral hand pain. This developed after he was punching a solid floor. He notes increasing pain and swelling to the dorsal aspect of both hands While in the emergency department he underwent bilateral hand x-rays. Imaging reveals a left fifth metacarpal fracture. No fractures identified in the right hand XR. Patient was placed in an ulnar gutter splint. He has been given instructions to keep it clean and dry and to remain nonweightbearing Patient will be referred to orthopedics. Case management has been consulted for referral. Patient is to use nonsteroidal anti-inflammatory medications as well as Tylenol for pain management. Should also use ice and elevate the extremities. All of this was relayed to the patient as well as his fianc?e Patient should return to the emergency department for new concerning or worsening symptoms Lab Data X-ray left hand: Reveals distal fifth metacarpal bone fracture of the left hand Edema present Radiology Impressions Hand X-Ray 09/23/22 13:38 IMPRESSION: 1. Negative for acute bony abnormality. 2. Metallic screws proximal phalange index finger Discharge Plan Discharge Patient Disposition: Home Clinical Impression: Oh's metacarpal fracture, neck, closed Condition: Stable Prescriptions: No Action aspirin [Adult Low Dose Aspirin] 81 mg tablet,delayed release (DR/EC) 81 mg PO DAILY@0800 spironolactone [Aldactone] 25 mg tablet 25 mg PO DAILY Qty: 90 3RF carvedilol 25 mg tablet 25 mg PO BID Qty: 180 3RF atorvastatin 20 mg tablet 20 mg PO DAILY Qty: 90 3RF clonidine HCl 0.1 mg tablet See Rx Instructions .ROUTE .COMPLEX Qty: 60 11RF Dose Instruction: TAKE ONE TABLET BY MOUTH TWICE A DAY NEEDED FOR HYPERTENSIVE EMERGENCY Rx Instructions: TAKE ONE TABLET BY MOUTH TWICE A DAY NEEDED FOR HYPERTENSIVE EMERGENCY pantoprazole 40 mg tablet,delayed release (DR/EC) 40 mg PO DAILY Qty: 180 3RF losartan 100 mg tablet 100 mg PO DAILY Qty: 30 0RF Discharge Orders: Discharge ED (Routine); Ordered 09/23/22 Ordered By: Vera Cohen Referrals: Rajinder Kruse DO [Primary Care Provider] - Discharge Diet: Advance as tolerated Discharge Activity: Resume usual activity Patient Instructions: Splint Care (ED), Boxer Fracture (ED) Activity Restrictions/Additional Instructions: Keep your splint clean and dry Remain nonweightbearing with that hand Do not punch, push, pull, or lift object Use ice throughout the day to help with swelling Ibuprofen and Tylenol as needed for pain Keep the extremity elevated to help with swelling Return to the emergency department for new concerning or worsening symptoms Follow-up with orthopedic Coding Level of Care Code ED Director Of Plant Operations for Chg Fwd Exam Comprehensive Medical Decision Making Low Complexity Documented by User: Gio Oneil DO 09/25/22 06:04 HPI - Extremity Problem General: Chief complaint: Extremity Injury, Upper Stated complaint: both hands injured Time Seen by Provider: 09/23/22 12:28 PFSH ED PFSH: Medical History Anxiety Aortic regurgitation CAD (coronary artery disease) Carcinoma of left kidney CHF (NYHA class III, ACC/AHA stage C) CVA (cerebral vascular accident) Dyslipidemia Enrolled in chronic care management GERD (gastroesophageal reflux disease) Hypertension Hypothyroid Mitral regurgitation Tricuspid regurgitation Surgical History History of neck surgery S/P mitral valve repair Family History Grandfather CAD (coronary artery disease) Denies family history of Diabetes Stroke Social History Smoking and tobacco status: former smoker Quit status (tobacco): has quit using tobacco Former quit date comment: smoked for 45 years Alcohol intake: current Alcohol intake frequency: holidays/special occasions only Course Vital Signs: Vital signs: Vital Signs Temperature 98.1 F 09/23/22 12:15 Pulse Rate 70 09/23/22 15:52 Respiratory Rate 16 09/23/22 15:52 Blood Pressure 130/78 09/23/22 12:15 Pulse Oximetry 98 09/23/22 15:52 MDM - Extremity (Nontraumatic) Medical Decision Making Differential diagnoses include fracture, fracture dislocation, contusions, Patient was evaluated in the emergency department today for complaints of bilateral hand pain. This developed after he was punching a solid floor. He notes increasing pain and swelling to the dorsal aspect of both hands While in the emergency department he underwent bilateral hand x-rays. Imaging reveals a left fifth metacarpal fracture. No fractures identified in the right hand XR. Patient was placed in an ulnar gutter splint. He has been given instructions to keep it clean and dry and to remain nonweightbearing Patient will be referred to orthopedics. Case management has been consulted for referral. Patient is to use nonsteroidal anti-inflammatory medications as well as Tylenol for pain management. Should also use ice and elevate the extremities. All of this was relayed to the patient as well as his fianc?e Patient should return to the emergency department for new concerning or worsening symptoms Chart reviewed and patient discussed with midlevel. Agree with assessment and plan. Lab Data Radiology Impressions Hand X-Ray 09/23/22 13:38 IMPRESSION: 1. Negative for acute bony abnormality. 2. Metallic screws proximal phalange index finger Discharge Plan Discharge Patient Disposition: Home Clinical Impression: Oh's metacarpal fracture, neck, closed Condition: Stable Prescriptions: No Action aspirin [Adult Low Dose Aspirin] 81 mg tablet,delayed release (DR/EC) 81 mg PO DAILY@0800 spironolactone [Aldactone] 25 mg tablet 25 mg PO DAILY Qty: 90 3RF carvedilol 25 mg tablet 25 mg PO BID Qty: 180 3RF atorvastatin 20 mg tablet 20 mg PO DAILY Qty: 90 3RF clonidine HCl 0.1 mg tablet See Rx Instructions .ROUTE .COMPLEX Qty: 60 11RF Dose Instruction: TAKE ONE TABLET BY MOUTH TWICE A DAY NEEDED FOR HYPERTENSIVE EMERGENCY Rx Instructions: TAKE ONE TABLET BY MOUTH TWICE A DAY NEEDED FOR HYPERTENSIVE EMERGENCY pantoprazole 40 mg tablet,delayed release (DR/EC) 40 mg PO DAILY Qty: 180 3RF losartan 100 mg tablet 100 mg PO DAILY Qty: 30 0RF Discharge Orders: Discharge ED (Routine); Ordered 09/23/22 Ordered By: Vera Cohen Referrals: Rajinder Kruse DO [Primary Care Provider] - Discharge Diet: Advance as tolerated Discharge Activity: Resume usual activity Patient Instructions: Splint Care (ED), Boxer Fracture (ED) Activity Restrictions/Additional Instructions: Keep your splint clean and dry Remain nonweightbearing with that hand Do not punch, push, pull, or lift object Use ice throughout the day to help with swelling Ibuprofen and Tylenol as needed for pain Keep the extremity elevated to help with swelling Return to the emergency department for new concerning or worsening symptoms Follow-up with orthopedic Coding Level of Care Code ED Director Of Plant Operations for Remi Fwd Exam Comprehensive Medical Decision Making Low Complexity
--- NOTE | 2022-09-23 15:07 | PC.NURSE ---
[facility] PLACED SPLINT ON LEFT ARM.
[2022-09-23 15:52] VITALS: PULSE 70; RESP 16; O2SAT 98
--- NOTE | 2022-09-25 09:44 | DCPLANNER ---
Addendum entered by Caity Gan 10/13/22 13:10: Patient had a follow up appointment scheduled for 09.28.22 with ortho - patient did attend appointment. Addendum entered by Caity Gan 09/26/22 15:42: Patient has a follow up appointment scheduled for September at 2:45 with Omar Bell at ortho. Clinic will call patient with appointment information. Original Note: manager credit had message to schedule a follow up appointment for patient with ortho. manager credit sent patients information to the front office staff at ortho. Patients information will be printed and reviewed. Clinic will call patient with appointment information.
== END 2022-09-23 15:53 | disposition home or self-care (01) ==
PROVIDERS: Emergency Provider Nurse Practitioner; PCP Family Medicine
DX: S62.367A Nondisplaced fracture of neck of fifth metacarpal bone, left hand, initial encounter for closed fracture (principal); Z79.82 Long term (current) use of aspirin; I25.10 Atherosclerotic heart disease of native coronary artery without angina pectoris; I11.0 Hypertensive heart disease with heart failure; I50.9 Heart failure, unspecified; E78.5 Hyperlipidemia, unspecified; Z87.891 Personal history of nicotine dependence; W22.09XA Striking against other stationary object, initial encounter
CPT/HCPCS: 29125; 73130; 99283

== ENCOUNTER → 2022-09-28 14:57 | Outpatient (BNVA) | payer MEDICARE, SELFPAY | PROVIDERS: PCP Family Medicine; Referring Provider Nurse Practitioner; Visit Provider Physician Assistant | DX: S62.337A Displaced fracture of neck of fifth metacarpal bone, left hand, initial encounter for closed fracture (principal); X58.XXXA Exposure to other specified factors, initial encounter; Y93.89 Activity, other specified | CPT/HCPCS: 73130 ==

== ENCOUNTER 2022-09-28 15:59 | Outpatient (CLI) | payer MEDICARE, SELFPAY | END 2022-09-28 16:00 | disposition home or self-care (01) | LOC: SPT 16:00 | PROVIDERS: PCP Family Medicine; Visit Provider Physician Assistant | DX: Z46.89 Encounter for fitting and adjustment of other specified devices (principal); S62.337D Displaced fracture of neck of fifth metacarpal bone, left hand, subsequent encounter for fracture with routine healing; X58.XXXD Exposure to other specified factors, subsequent encounter | CPT/HCPCS: 97760; 99203; L3984 ==

== ENCOUNTER 2022-09-29 15:28 | Emergency (ER) | payer MEDICARE, SELFPAY ==
--- NOTE | 2022-09-29 15:41 | ED_ITS ---
Documented by User: Mamie Andres MD 09/30/22 06:46 HPI - Chest Pain General: Chief Complaint: Chest Pain Stated Complaint: CHEST PAIN Time Seen by Provider: 09/29/22 15:41 History of Present Illness: This patient is a 62 year old with chest pain. Presenting by EMS. 12/18 chest pain relieved by EMS nitro. History of CABG and aortic valve repair in 2020 at [place]. He has never had chest pain like this today. He has had heart failure and recently his blood pressure has been high. He has had his medications adjusted but it still runs high. He is taking his regular meds as well as clonidine PRN. He sees Dr. Gonzalez. [facility] ED PFS: Medical History Anxiety Aortic regurgitation CAD (coronary artery disease) Carcinoma of left kidney CHF (NYHA class III, ACC/AHA stage C) CVA (cerebral vascular accident) Dyslipidemia Enrolled in chronic care management GERD (gastroesophageal reflux disease) Hypertension Hypothyroid Mitral regurgitation Tricuspid regurgitation Surgical History History of neck surgery S/P mitral valve repair Family History Grandfather CAD (coronary artery disease) Denies family history of Diabetes Stroke Social History Smoking and tobacco status: former smoker Quit status (tobacco): has quit using tobacco Former quit date comment: smoked for 45 years Alcohol intake: current Alcohol intake frequency: holidays/special occasions only Course Vital Signs: Vital signs: Vital Signs Temperature 97.7 F 09/29/22 15:42 Pulse Rate 72 09/29/22 21:13 Respiratory Rate 18 09/29/22 21:13 Blood Pressure 125/62 09/29/22 21:13 Pulse Oximetry 96 09/29/22 21:13 Oxygen Delivery Me thod 09/29/22 20:36 MDM - Chest Pain Medical Decision Making I discussed the patient with Dr. Gonzalez and she requested a BNP be added to my work up to evaluate for decompensated CHF. He does not complain of SOB and his CXR does not appear consistent with that - however, he is hypertensive and having trouble controlling BP at home and that could indicate fluid overload. Troponins neg. Care turned over to Dr. Minor while awaiting BNP to be resulted. If neg, he can go home. Patient presents for chest pain that since resolved troponins here are normal BNP is at his baseline he feels improved he is stable for discharge she is to follow-up with PCP and return if worsening. Lab Data 09/29/22 14:58 09/29/22 14:58 Radiology Impressions Chest X-Ray 09/29/22 15:41 IMPRESSION: Cardiomegaly, negative for infiltrate. Laboratory Results WBC 8.3 10^3/uL (4.0-10.0) 09/29/22 14:58 RBC 4.38 10^6/uL (4.1-5.3) 09/29/22 14:58 Hgb 13.6 g/dL (11.7-16.6) 09/29/22 14:58 Hct 42.9 % (42.0-52.0) 09/29/22 14:58 MCV 97.9 fl (80-94) H 09/29/22 14:58 MCH 31.1 pg (28.0-34.0) 09/29/22 14:58 MCHC 31.7 g/dL (30.0-36.0) 09/29/22 14:58 RDW 13.2 % (12.1-15.1) 09/29/22 14:58 Plt Count 261 10^3/cmm (130-400) 09/29/22 14:58 MPV 9.6 fL (7.4-10.4) 09/29/22 14:58 Neut % (Auto) 71.8 % 09/29/22 14:58 Lymph % (Auto) 16.4 % 09/29/22 14:58 Love % (Auto) 9.0 % 09/29/22 14:58 Eos % (Auto) 1.9 % 09/29/22 14:58 Baso % (Auto) 0.5 % 09/29/22 14:58 Neut # (Auto) 5.95 10^3/uL (1.8-7.7) 09/29/22 14:58 Lymph # (Auto) 1.4 10^3/uL (0.8-4.8) 09/29/22 14:58 Love # (Auto) 0.8 10^3/uL (0.2-0.9) 09/29/22 14:58 Eos # (Auto) 0.2 10^3/uL (0.0-0.8) 09/29/22 14:58 Baso # (Auto) 0.0 10^3/uL (0.0-0.1) 09/29/22 14:58 Nucleated RBC % (auto) 0 % 09/29/22 14:58 Nucleated RBCs # 0.0 /100WBC 09/29/22 14:58 PT 14.20 SECONDS (12.1-14.9) 09/29/22 14:58 INR 1.07 (0.8-1.2) 09/29/22 14:58 Sodium 141 mmol/L (136-145) 09/29/22 14:58 Potassium 4.0 mmol/L (3.5-5.1) 09/29/22 14:58 Chloride 104 mmol/L (98-107) 09/29/22 14:58 Carbon Dioxide 28 mmol/L (22-29) 09/29/22 14:58 Anion Gap 13.0 (5-19) 09/29/22 14:58 BUN 13 mg/dL (8-23) 09/29/22 14:58 Creatinine 1.0 mg/dL (0.7-1.2) 09/29/22 14:58 GFR Calculation 75.7 mL/min (90-130) L 09/29/22 14:58 Glucose 98 mg/dL (65-115) 09/29/22 14:58 Calculated Osmolality 292 mOsm/kg (285-295) 09/29/22 14:58 Calcium 9.2 mg/dL (8.5-10.5) 09/29/22 14:58 Magnesium 1.8 mg/dL (1.7-2.3) 09/29/22 14:58 Total Bilirubin 0.4 mg/dL (0.15-1.2) 09/29/22 14:58 AST 29 U/L (0-40) 09/29/22 14:58 ALT 31 U/L (0-41) 09/29/22 14:58 Alkaline Phosphatase 94 U/L (40-130) 09/29/22 14:58 Troponin T Baseline 16 ng/L (0-15) H 09/29/22 14:58 Troponin T 120 Minute 16.11 ng/L (0-15) H 09/29/22 16:38 Delta Troponin T 0.11 ABS# (0-10) 09/29/22 16:38 Troponin T Hi Sens 6Hr 15.16 ng/L (0-15) H 09/29/22 20:19 Troponin T Hi Sens 6Hr Delta -0.84 ng/L (0-12) L 09/29/22 20:19 NT-Pro-B Natriuret Pep 1477 pg/mL (0-125) H 09/29/22 16:38 Total Protein 6.7 g/dL (6.6-8.7) 09/29/22 14:58 Albumin 4.3 g/dL (3.5-5.2) 09/29/22 14:58 Globulin 2.4 g/dL (1.3-4.6) 09/29/22 14:58 Lipase 25 U/L (13-60) 09/29/22 14:58 Discharge Plan Discharge Patient Disposition: Home Clinical Impression: Chest pain Condition: Stable Prescriptions: No Action aspirin [Adult Low Dose Aspirin] 81 mg tablet,delayed release (DR/EC) 81 mg PO DAILY@0800 spironolactone [Aldactone] 25 mg tablet 25 mg PO DAILY Qty: 90 3RF carvedilol 25 mg tablet 25 mg PO BID Qty: 180 3RF (DME) ulnar gutter fast form See Rx Instructions .Route .MEDSUPPLY Qty: 1 0RF Rx Instructions: As directed pantoprazole 40 mg tablet,delayed release (DR/EC) 40 mg PO DAILY Qty: 180 3RF losartan 50 mg tablet 50 mg PO BID clonidine HCl 0.1 mg tablet 0.1 mg PO BID PRN (Reason: Blood Pressure) acetaminophen 325 mg Tablet 650 mg PO BID Men's 50 Plus Daily Formula 400-20-370 mcg Tablet 1 tab PO DAILY Discharge Orders: Discharge ED (Routine); Ordered 09/29/22 Ordered By: Natali Minor Referrals: Rajinder Kruse DO [Primary Care Provider] - Melisa Gonzalez MD [Physician] - 1-3 days Discharge Diet: Advance as tolerated Discharge Activity: Resume usual activity Patient Instructions: Chest Pain (ED) Coding Level of Care Code ED Trim Machine Adjuster for Chg Fwd Documented by User: Natali Minor MD 09/29/22 21:00 HPI - Chest Pain General: Chief Complaint: Chest Pain Stated Complaint: CHEST PAIN Time Seen by Provider: 09/29/22 15:41 PFSH ED PFSH: Medical History Anxiety Aortic regurgitation CAD (coronary artery disease) Carcinoma of left kidney CHF (NYHA class III, ACC/AHA stage C) CVA (cerebral vascular accident) Dyslipidemia Enrolled in chronic care management GERD (gastroesophageal reflux disease) Hypertension Hypothyroid Mitral regurgitation Tricuspid regurgitation Surgical History History of neck surgery S/P mitral valve repair Family History Grandfather CAD (coronary artery disease) Denies family history of Diabetes Stroke Social History Smoking and tobacco status: former smoker Quit status (tobacco): has quit using tobacco Former quit date comment: smoked for 45 years Alcohol intake: current Alcohol intake frequency: holidays/special occasions only Course Vital Signs: Vital signs: Vital Signs Temperature 97.7 F 09/29/22 15:42 Pulse Rate 72 09/29/22 21:13 Respiratory Rate 18 09/29/22 21:13 Blood Pressure 125/62 09/29/22 21:13 Pulse Oximetry 96 09/29/22 21:13 Oxygen Delivery Me thod 09/29/22 20:36 MDM - Chest Pain Medical Decision Making Patient presents for chest pain that since resolved troponins here are normal BNP is at his baseline he feels improved he is stable for discharge she is to follow-up with PCP and return if worsening. Lab Data 09/29/22 14:58 09/29/22 14:58 Radiology Impressions Chest X-Ray 09/29/22 15:41 IMPRESSION: Cardiomegaly, negative for infiltrate. Laboratory Results WBC 8.3 10^3/uL (4.0-10.0) 09/29/22 14:58 RBC 4.38 10^6/uL (4.1-5.3) 09/29/22 14:58 Hgb 13.6 g/dL (11.7-16.6) 09/29/22 14:58 Hct 42.9 % (42.0-52.0) 09/29/22 14:58 MCV 97.9 fl (80-94) H 09/29/22 14:58 MCH 31.1 pg (28.0-34.0) 09/29/22 14:58 MCHC 31.7 g/dL (30.0-36.0) 09/29/22 14:58 RDW 13.2 % (12.1-15.1) 09/29/22 14:58 Plt Count 261 10^3/cmm (130-400) 09/29/22 14:58 MPV 9.6 fL (7.4-10.4) 09/29/22 14:58 Neut % (Auto) 71.8 % 09/29/22 14:58 Lymph % (Auto) 16.4 % 09/29/22 14:58 Love % (Auto) 9.0 % 09/29/22 14:58 Eos % (Auto) 1.9 % 09/29/22 14:58 Baso % (Auto) 0.5 % 09/29/22 14:58 Neut # (Auto) 5.95 10^3/uL (1.8-7.7) 09/29/22 14:58 Lymph # (Auto) 1.4 10^3/uL (0.8-4.8) 09/29/22 14:58 Love # (Auto) 0.8 10^3/uL (0.2-0.9) 09/29/22 14:58 Eos # (Auto) 0.2 10^3/uL (0.0-0.8) 09/29/22 14:58 Baso # (Auto) 0.0 10^3/uL (0.0-0.1) 09/29/22 14:58 Nucleated RBC % (auto) 0 % 09/29/22 14:58 Nucleated RBCs # 0.0 /100WBC 09/29/22 14:58 PT 14.20 SECONDS (12.1-14.9) 09/29/22 14:58 INR 1.07 (0.8-1.2) 09/29/22 14:58 Sodium 141 mmol/L (136-145) 09/29/22 14:58 Potassium 4.0 mmol/L (3.5-5.1) 09/29/22 14:58 Chloride 104 mmol/L (98-107) 09/29/22 14:58 Carbon Dioxide 28 mmol/L (22-29) 09/29/22 14:58 Anion Gap 13.0 (5-19) 09/29/22 14:58 BUN 13 mg/dL (8-23) 09/29/22 14:58 Creatinine 1.0 mg/dL (0.7-1.2) 09/29/22 14:58 GFR Calculation 75.7 mL/min (90-130) L 09/29/22 14:58 Glucose 98 mg/dL (65-115) 09/29/22 14:58 Calculated Osmolality 292 mOsm/kg (285-295) 09/29/22 14:58 Calcium 9.2 mg/dL (8.5-10.5) 09/29/22 14:58 Magnesium 1.8 mg/dL (1.7-2.3) 09/29/22 14:58 Total Bilirubin 0.4 mg/dL (0.15-1.2) 09/29/22 14:58 AST 29 U/L (0-40) 09/29/22 14:58 ALT 31 U/L (0-41) 09/29/22 14:58 Alkaline Phosphatase 94 U/L (40-130) 09/29/22 14:58 Troponin T Baseline 16 ng/L (0-15) H 09/29/22 14:58 Troponin T 120 Minute 16.11 ng/L (0-15) H 09/29/22 16:38 Delta Troponin T 0.11 ABS# (0-10) 09/29/22 16:38 Troponin T Hi Sens 6Hr 15.16 ng/L (0-15) H 09/29/22 20:19 Troponin T Hi Sens 6Hr Delta -0.84 ng/L (0-12) L 09/29/22 20:19 NT-Pro-B Natriuret Pep 1477 pg/mL (0-125) H 09/29/22 16:38 Total Protein 6.7 g/dL (6.6-8.7) 09/29/22 14:58 Albumin 4.3 g/dL (3.5-5.2) 09/29/22 14:58 Globulin 2.4 g/dL (1.3-4.6) 09/29/22 14:58 Lipase 25 U/L (13-60) 09/29/22 14:58 Discharge Plan Discharge Patient Disposition: Home Clinical Impression: Chest pain Condition: Stable Prescriptions: No Action aspirin [Adult Low Dose Aspirin] 81 mg tablet,delayed release (DR/EC) 81 mg PO DAILY@0800 spironolactone [Aldactone] 25 mg tablet 25 mg PO DAILY Qty: 90 3RF carvedilol 25 mg tablet 25 mg PO BID Qty: 180 3RF (DME) ulnar gutter fast form See Rx Instructions .Route .MEDSUPPLY Qty: 1 0RF Rx Instructions: As directed pantoprazole 40 mg tablet,delayed release (DR/EC) 40 mg PO DAILY Qty: 180 3RF losartan 50 mg tablet 50 mg PO BID clonidine HCl 0.1 mg tablet 0.1 mg PO BID PRN (Reason: Blood Pressure) acetaminophen 325 mg Tablet 650 mg PO BID Men's 50 Plus Daily Formula 400-20-370 mcg Tablet 1 tab PO DAILY Discharge Orders: Discharge ED (Routine); Ordered 09/29/22 Ordered By: Natali Minor Referrals: Rajinder Kruse DO [Primary Care Provider] - Melisa Gonzalez MD [Physician] - 1-3 days Discharge Diet: Advance as tolerated Discharge Activity: Resume usual activity Patient Instructions: Chest Pain (ED) Coding Level of Care Code ED Trim Machine Adjuster 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
--- NOTE | 2022-09-29 15:41 | XRR_ITS ---
PROCEDURE INFORMATION: Exam: XR Chest Exam date and time: 09/29/2022 3:47 PM Age: 62 years old Clinical indication: Left-sided; Patient HX: History--chest pain on the left side, since about 1 the afternoon TECHNIQUE: Imaging protocol: Radiologic exam of the chest. Views: 1 view. COMPARISON: CR (CHEST, ) 09/18/2022 7:54 PM FINDINGS: Lungs: Scattered benign calcified granulomas. Pleural spaces: Unremarkable. No pleural effusion. No pneumothorax. Heart/Mediastinum: Cardiomegaly. Aortic valve replacement. Bones/joints: Sternotomy wires. XR/XR chest 1V portable [id number] IMPRESSION: Cardiomegaly, negative for infiltrate.
[2022-09-29 15:42] VITALS: BP 128/81; PULSE 71; RESP 14; TEMP 36.5; O2SAT 99; BMI 19.5
[2022-09-29 15:58] VITALS: BP 131/88; PULSE 65; RESP 14; O2SAT 93
--- NOTE | 2022-09-29 16:01 | ECG_ITS ---
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 Measurements Intervals [place] Rate: 68 P: 61 VA: 169 QRS: 56 QRSD: 100 T: 149 QT: 391 QTc: 416 Interpretive Statements SINUS RHYTHM POSSIBLE LEFT ATRIAL ENLARGEMENT [-0.1mV P-WAVE IN V1/V2] INFERIOR MYOCARDIAL INFARCTION , PROBABLY OLD [40+ ms Q WAVE AND/OR ST/T ABNORMALITY IN II/aVF] Compared to ECG 09/18/2022 21:27:47 T-wave abnormality no longer present Possible ischemia no longer present Myocardial infarct finding still present Electronically Signed On 09-29-2022 17:52:25 CASH ACCOUNTANT by Gokul White M.D. [id number]
[2022-09-29 16:05] LABS: Basophils % 0.5 %; Eosinophils # 0.2 10^3/uL (0.0-0.8); Eosinophils % 1.9 %; Hematocrit 42.9 % (42.0-52.0); Hemoglobin 13.6 g/dL (11.7-16.6); Lymphocytes # 1.4 10^3/uL (0.8-4.8); Lymphocytes % 16.4 %; Mean Corpuscular HGB Conc 31.7 g/dL (30.0-36.0); Mean Corpuscular Hemoglobin 31.1 pg (28.0-34.0); Mean Corpuscular Volume 97.9 fl (80-94); Mean Platelet Volume 9.6 fL (7.4-10.4); Monocytes # 0.8 10^3/uL (0.2-0.9); Neutrophils # 5.95 10^3/uL (1.8-7.7); Neutrophils % 71.8 %; Nucleated Red Blood Cells % 0 %; Platelet Count 261 10^3/cmm (130-400); Red Blood Count 4.38 10^6/uL (4.1-5.3); Red Cell Distribution Width 13.2 % (12.1-15.1); White Blood Count 8.3 10^3/uL (4.0-10.0)
[2022-09-29 16:08] VITALS: PULSE 97
[2022-09-29 16:13] LABS: INR 1.07 (0.8-1.2)
[2022-09-29 16:19] LABS: Alanine Aminotransferase 31 U/L (0-41); Albumin Level 4.3 g/dL (3.5-5.2); Alkaline Phosphatase 94 U/L (40-130); Aspartate Amino Transferase 29 U/L (0-40); Blood Urea Nitrogen 13 mg/dL (8-23); Calcium 9.2 mg/dL (8.5-10.5); Carbon Dioxide 28 mmol/L (22-29); Chloride 104 mmol/L (98-107); Globulin 2.4 g/dL (1.3-4.6); Glomerular Filtration Rate 75.7 mL/min (90-130); Glucose 98 mg/dL (65-115); Lipase 25 U/L (13-60); Magnesium 1.8 mg/dL (1.7-2.3); Osmolality Calculated 292 mOsm/kg (285-295); Sodium 141 mmol/L (136-145); Total Bilirubin 0.4 mg/dL (0.15-1.2); Total Protein 6.7 g/dL (6.6-8.7)
[2022-09-29 16:30] LABS: Troponin(5th) Baseline 16 ng/L (0-15)
[2022-09-29 17:06] LABS: Troponin 5 2HR 16.11 ng/L (0-15)
[2022-09-29 17:13] LABS: Troponin 5 2HR Delta 0.11 ABS# (0-10)
[2022-09-29] MEDS: acetaminophen 500 mg Tablet 1000 MG PO (19:41)
[2022-09-29 19:45] VITALS: BP 132/82; PULSE 71; RESP 16; O2SAT 97
[2022-09-29 20:24] LABS: NT Pro B Type Natriuretic Pept 1477 pg/mL (0-125)
[2022-09-29 20:36] VITALS: BP 120/65; PULSE 67; O2SAT 94
[2022-09-29 20:54] LABS: Troponin 5 6HR 15.16 ng/L (0-15)
[2022-09-29 20:55] LABS: Troponin 5 6HR Delta -0.84 ng/L (0-12)
[2022-09-29 21:13] VITALS: BP 125/62; PULSE 72; RESP 18; O2SAT 96
== END 2022-09-29 21:13 | disposition home or self-care (01) ==
PROVIDERS: Emergency Medicine; Emergency Provider Emergency Medicine; PCP Family Medicine
DX: R07.9 Chest pain, unspecified (principal); Z79.82 Long term (current) use of aspirin; I25.10 Atherosclerotic heart disease of native coronary artery without angina pectoris; I11.0 Hypertensive heart disease with heart failure; I50.9 Heart failure, unspecified; Z86.73 Personal history of transient ischemic attack (TIA), and cerebral infarction without residual deficits; Z85.528 Personal history of other malignant neoplasm of kidney; E78.5 Hyperlipidemia, unspecified; Z87.891 Personal history of nicotine dependence; Z95.1 Presence of aortocoronary bypass graft
CPT/HCPCS: 36415; 71045; 80053; 83690; 83735; 83880; 84484; 85025; 85610; 93005; 99285

== ENCOUNTER → 2022-10-02 13:32 | Outpatient (BNVA) | payer MEDICARE, SELFPAY | PROVIDERS: PCP Family Medicine; Visit Provider Nurse Practitioner Family | DX: I25.10 Atherosclerotic heart disease of native coronary artery without angina pectoris (principal); I11.0 Hypertensive heart disease with heart failure; I50.9 Heart failure, unspecified; Z87.891 Personal history of nicotine dependence | CPT/HCPCS: 99214 ==

== ENCOUNTER → 2022-10-24 14:17 | Outpatient (BNVA) | payer MEDICARE, SELFPAY | PROVIDERS: PCP Family Medicine; Visit Provider Physician Assistant | DX: S62.339D Displaced fracture of neck of unspecified metacarpal bone, subsequent encounter for fracture with routine healing (principal); X58.XXXD Exposure to other specified factors, subsequent encounter | CPT/HCPCS: 73120; 99213 ==

== ENCOUNTER 2023-01-29 12:03 | Emergency (ER) | payer MEDICARE, SELFPAY ==
[2023-01-29 12:16] VITALS: BP 90/56; PULSE 62; RESP 16; TEMP 36.8; O2SAT 99
[2023-01-29 12:38] VITALS: BP 90/56; PULSE 62; RESP 16; O2SAT 99
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
[2023-01-29] MEDS: ondansetron 4 MG Tablet PO (13:06)
--- NOTE | 2023-01-30 08:17 | PC.NURSE ---
Addendum entered by Caity Gan 02/06/23 14:32: manager performance improvement called the office of Dr. Myers to confirm that patients information had been received. manager performance improvement was told that clinic had received patients information and clinic will call patient to schedule an appointment. Original Note: Patient seen in the ED on 01/29/23. Referred to Opthamology for rt eye irritation. Fax sent to Dr Myers clinic to call patient with an appt.
== END 2023-01-29 15:56 | disposition home or self-care (01) ==
PROVIDERS: Emergency Provider Physician Assistant; PCP Nurse Practitioner Family
DX: S16.1XXA Strain of muscle, fascia and tendon at neck level, initial encounter (principal); S00.03XA Contusion of scalp, initial encounter; S06.0XAA Concussion with loss of consciousness status unknown, initial encounter; S00.11XA Contusion of right eyelid and periocular area, initial encounter; S00.531A Contusion of lip, initial encounter; Z87.891 Personal history of nicotine dependence; I25.10 Atherosclerotic heart disease of native coronary artery without angina pectoris; I11.0 Hypertensive heart disease with heart failure; I50.9 Heart failure, unspecified; Z86.73 Personal history of transient ischemic attack (TIA), and cerebral infarction without residual deficits; E78.5 Hyperlipidemia, unspecified; Y04.2XXA Assault by strike against or bumped into by another person, initial encounter
CPT/HCPCS: 70450; 70486; 72125; 80053; 80061; 84443; 99284; Q0162

== ENCOUNTER → 2023-03-05 15:18 | Outpatient (BNVA) | payer MEDICARE, SELFPAY | PROVIDERS: PCP Nurse Practitioner Family; Visit Provider Internal Medicine Cardiovascular Disease | DX: I11.0 Hypertensive heart disease with heart failure (principal); I50.9 Heart failure, unspecified; I25.10 Atherosclerotic heart disease of native coronary artery without angina pectoris; Z95.1 Presence of aortocoronary bypass graft; E78.5 Hyperlipidemia, unspecified; Z98.890 Other specified postprocedural states; I35.1 Nonrheumatic aortic (valve) insufficiency; Z87.891 Personal history of nicotine dependence | CPT/HCPCS: 99214 ==

== ENCOUNTER → 2023-03-06 15:01 | Outpatient (BNVA) | payer MEDICARE, SELFPAY | PROVIDERS: PCP Nurse Practitioner Family; Visit Provider Family Medicine | DX: E87.5 Hyperkalemia (principal); I10 Essential (primary) hypertension; F41.9 Anxiety disorder, unspecified | CPT/HCPCS: 80053 ==

== ENCOUNTER 2023-03-28 18:34 | Emergency (ER) | payer MEDICARE, SELFPAY ==
[2023-03-28 18:35] VITALS: BP 127/74; PULSE 66; TEMP 36.9; O2SAT 96; BMI 20.3
--- NOTE | 2023-03-28 18:42 | ECG_ITS ---
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 Measurements Intervals [place] Rate: 66 P: 81 [place]: 182 QRS: 77 QRSD: 97 T: 95 QT: 387 QTc: 408 Interpretive Statements SINUS RHYTHM PROBABLE INFERIOR MYOCARDIAL INFARCTION , PROBABLY OLD [35 ms Q WAVE IN II/aVF] Compared to ECG 09/29/2022 16:01:40 No significant changes Electronically Signed On 03-29-2023 12:30:13 CDT by Melisa Gonzalez M.D. [id number] f
--- NOTE | 2023-03-28 18:46 | XRR_ITS ---
PROCEDURE INFORMATION: Exam: XR Chest Exam date and time: 03/28/2023 6:49 PM Age: 62 years old Clinical indication: Pain; Chest pressure; Prior surgery; Surgery date: 6+ months; Surgery type: Open heart; Additional info: Cp TECHNIQUE: Imaging protocol: Radiologic exam of the chest. Views: 1 view. COMPARISON: CR XR chest 1V portable [id number] 09/29/2022 3:47 PM FINDINGS: Lungs: Lungs appear free of acute disease. Granulomatous changes are noted. Pleural spaces: Unremarkable. No pleural effusion. No pneumothorax. Heart/Mediastinum: Unremarkable. No cardiomegaly. Bones/joints: Sternal sutures are again seen. XR/XR chest 1V portable [id number] IMPRESSION: No acute findings.
[2023-03-28 19:00] VITALS: BP 141/83; PULSE 67; RESP 16; O2SAT 98
--- NOTE | 2023-03-28 19:05 | ED_ITS ---
HPI - Chest Pain General: Chief Complaint: Chest Pain Stated Complaint: Chest pain Time Seen by Provider: 03/28/23 18:46 Source: patient and EMS Mode of arrival: EMS Limitations: no limitations History of Present Illness: 62-year-old male states has been having chest pain since this morning at 9 AM. He states it is a sharp pain in the left side of his chest states been constant nature he states it is worse with a cough or if he moves or palpates it. He denies any shortness of breath denies any nausea denies any diaphoresis. PFSH ED PFSH: Medical History Anxiety Aortic regurgitation CAD (coronary artery disease) Carcinoma of left kidney CHF (NYHA class III, ACC/AHA stage C) CVA (cerebral vascular accident) Dyslipidemia Enrolled in chronic care management GERD (gastroesophageal reflux disease) Hypertension Hypothyroid Mitral regurgitation Tricuspid regurgitation Surgical History History of neck surgery S/P mitral valve repair Family History Grandfather CAD (coronary artery disease) Denies family history of Diabetes Stroke Social History Smoking and tobacco status: former smoker Quit status (tobacco): has quit using tobacco Former quit date comment: smoked for 45 years Alcohol intake: current Alcohol intake frequency: holidays/special occasions only Substance/Drug Use: current Other substance/drug use details: occassionlly Physical Exam Const: COMMON NORMALS: no acute distress, patient oriented x3 and healthy appearing HENMT: COMMON NORMALS: normocephalic HEAD & SCALP: normocephalic Eye: COMMON NORMALS: conjunctivae normal CONJUNCTIVA: Yes conjunctivae normal Neck/C-Spine: COMMON NORMALS: full ROM and supple Chest: COMMONS NORMALS: normal inspection of the chest OTHER: point tender over left chest reproduces pain Resp: COMMON NORMALS: normal respiratory effort, No retractions, No use of accessory muscles and clear to auscultation bilaterally AUSCULTATION: clear to auscultation bilaterally Cardio: COMMON NORMALS: regular rate, regular rhythm and No murmurs present (Cardio) RATE: regular rate RHYTHM: regular rhythm GI: COMMON NORMALS: Normal to inspection, nondistended, normoactive bowel sounds present, Soft to palpation, non-tender and no masses PALPATION: Yes Soft to palpation Extremity: COMMON NORMALS: normal to inspection and full ROM Neuro: COMMON NORMALS: patient oriented x3, moves all extremities and no focal motor deficits Psych: COMMON NORMALS: mental status grossly normal, Normal thought process present and cooperative THOUGHT PROCESS: Normal thought process present Skin: COMMON NORMALS: no rashes or lesions noted and no wounds GENERAL SKIN EXAM: no rashes or lesions noted Course Vital Signs: Vital signs: Vital Signs Temperature 98.4 F 03/28/23 18:35 Pulse Rate 67 03/28/23 19:00 Respiratory Rate 16 03/28/23 19:00 Blood Pressure 141/83 03/28/23 19:00 Pulse Oximetry 98 03/28/23 19:00 Oxygen Delivery Me thod Room Air 03/28/23 19:00 MDM - Chest Pain Medical Decision Making Patient presents for chest pains atypical in nature likely muscle skeletal he is point tender in the center of his chest x-ray EKG and blood work here is normal troponin is normal does not need a 2-hour troponin his pain has been going on for 12 hours no signs of acute coronary syndrome he is follow-up with incoming freight clerk and return if worsening Medical Records I reviewed the patient's medical records. Lab Data I reviewed the patient's lab results. 03/28/23 19:09 03/28/23 19:09 Radiology Impressions Chest X-Ray 03/28/23 18:46 IMPRESSION: No acute findings. Laboratory Results WBC 8.3 10^3/uL (4.0-10.0) 03/28/23 19:09 RBC 4.14 10^6/uL (4.1-5.3) 03/28/23 19:09 Hgb 12.9 g/dL (11.7-16.6) 03/28/23 19:09 Hct 40.1 % (42.0-52.0) L 03/28/23 19:09 MCV 96.9 fl (80-94) H 03/28/23 19:09 MCH 31.2 pg (28.0-34.0) 03/28/23 19:09 MCHC 32.2 g/dL (30.0-36.0) 03/28/23 19:09 RDW 12.9 % (12.1-15.1) 03/28/23 19:09 Plt Count 235 10^3/cmm (130-400) 03/28/23 19:09 MPV 9.3 fL (7.4-10.4) 03/28/23 19:09 Neut % (Auto) 66.9 % 03/28/23 19:09 Lymph % (Auto) 21.7 % 03/28/23 19:09 [place] % (Auto) 7.7 % 03/28/23 19:09 Eos % (Auto) 2.9 % 03/28/23 19:09 Baso % (Auto) 0.6 % 03/28/23 19:09 Neut # (Auto) 5.56 10^3/uL (1.8-7.7) 03/28/23 19:09 Lymph # (Auto) 1.8 10^3/uL (0.8-4.8) 03/28/23 19:09 [place] # (Auto) 0.6 10^3/uL (0.2-0.9) 03/28/23 19:09 Eos # (Auto) 0.2 10^3/uL (0.0-0.8) 03/28/23 19:09 Baso # (Auto) 0.1 10^3/uL (0.0-0.1) 03/28/23 19:09 Nucleated RBC % (auto) 0 % 03/28/23 19:09 Nucleated RBCs # 0.0 /100WBC 03/28/23 19:09 Sodium 138 mmol/L (136-145) 03/28/23 19:09 Potassium 4.8 mmol/L (3.5-5.1) 03/28/23 19:09 Chloride 103 mmol/L (98-107) 03/28/23 19:09 Carbon Dioxide 27 mmol/L (22-29) 03/28/23 19:09 Anion Gap 12.8 (5-19) 03/28/23 19:09 BUN 16 mg/dL (8-23) 03/28/23 19:09 Creatinine 1.0 mg/dL (0.7-1.2) 03/28/23 19:09 Calculated Osmolality 288 mOsm/kg (285-295) 03/28/23 19:09 Calcium 9.4 mg/dL (8.5-10.5) 03/28/23 19:09 Total Bilirubin 0.4 mg/dL (0.15-1.2) 03/28/23 19:09 AST 14 U/L (0-40) 03/28/23 19:09 ALT 10 U/L (0-41) 03/28/23 19:09 Alkaline Phosphatase 80 U/L (40-130) 03/28/23 19:09 Troponin T Baseline 10 ng/L (0-15) 03/28/23 19:09 Albumin 3.8 g/dL (3.5-5.2) 03/28/23 19:09 Globulin 2.7 g/dL (1.3-4.6) 03/28/23 19:09 EKG Data EKG 1: I personally reviewed and interpreted this EKG as follows: EKG interpretation date: 03/28/23 EKG interpretation time: 18:42 Interpretation: nsr hr [address] or t wave abnormalities qrs 97 qtc 401 Discharge Plan Discharge Patient Disposition: Home Clinical Impression: Chest pain Condition: Stable Prescriptions: New naproxen [Naprosyn] 500 mg tablet 500 mg PO BID PRN (Reason: pain) Qty: 20 0RF No Action spironolactone [Aldactone] 25 mg tablet 25 mg PO BID Qty: 90 3RF diazepam [Valium] 5 mg tablet 5 mg PO BID PRN (Reason: anxiety) Qty: 60 0RF valsartan 160 mg tablet 80 mg PO BID pantoprazole 40 mg tablet,delayed release (DR/EC) 40 mg PO DAILY Qty: 180 3RF carvedilol 25 mg tablet 25 mg PO BID Qty: 180 3RF clonidine HCl 0.1 mg tablet 0.1 mg PO BID PRN (Reason: Blood Pressure) Men's 50 Plus Daily Formula 400-20-370 mcg Tablet 1 tab PO DAILY acetaminophen 325 mg tablet 650 mg PO BID PRN Discharge Orders: Discharge ED (Routine); Ordered 03/28/23 Ordered By: Natali Minor Referrals: Flower Beasley, MAKING MACHINE OPERATOR [Primary Care Provider] - 1-3 days Discharge Diet: Advance as tolerated Discharge Activity: Resume usual activity Patient Instructions: Chest Pain (ED) Coding Level of Care Code ED Water Purifier for Andig Juma
[2023-03-28 19:29] LABS: Basophils # 0.1 10^3/uL (0.0-0.1); Basophils % 0.6 %; Eosinophils # 0.2 10^3/uL (0.0-0.8); Eosinophils % 2.9 %; Hematocrit 40.1 % (42.0-52.0); Hemoglobin 12.9 g/dL (11.7-16.6); Lymphocytes # 1.8 10^3/uL (0.8-4.8); Lymphocytes % 21.7 %; Mean Corpuscular HGB Conc 32.2 g/dL (30.0-36.0); Mean Corpuscular Hemoglobin 31.2 pg (28.0-34.0); Mean Corpuscular Volume 96.9 fl (80-94); Mean Platelet Volume 9.3 fL (7.4-10.4); Monocytes # 0.6 10^3/uL (0.2-0.9); Monocytes % 7.7 %; Neutrophils # 5.56 10^3/uL (1.8-7.7); Neutrophils % 66.9 %; Nucleated Red Blood Cells % 0 %; Platelet Count 235 10^3/cmm (130-400); Red Blood Count 4.14 10^6/uL (4.1-5.3); Red Cell Distribution Width 12.9 % (12.1-15.1); White Blood Count 8.3 10^3/uL (4.0-10.0)
[2023-03-28 19:48] LABS: Troponin(5th) Baseline 10 ng/L (0-15)
[2023-03-28 19:51] LABS: Alanine Aminotransferase 10 U/L (0-41); Albumin Level 3.8 g/dL (3.5-5.2); Alkaline Phosphatase 80 U/L (40-130); Anion Gap 12.8 (5-19); Aspartate Amino Transferase 14 U/L (0-40); Blood Urea Nitrogen 16 mg/dL (8-23); Calcium 9.4 mg/dL (8.5-10.5); Carbon Dioxide 27 mmol/L (22-29); Chloride 103 mmol/L (98-107); Globulin 2.7 g/dL (1.3-4.6); Glomerular Filtration Rate 75.7 mL/min (90-130); Glucose 120 mg/dL (65-115); Osmolality Calculated 288 mOsm/kg (285-295); Potassium 4.8 mmol/L (3.5-5.1); Sodium 138 mmol/L (136-145); Total Bilirubin 0.4 mg/dL (0.15-1.2); Total Protein 6.5 g/dL (6.6-8.7)
[2023-03-28 20:07] LABS: INR 1.09 (0.8-1.2)
== END 2023-03-28 20:20 | disposition home or self-care (01) ==
PROVIDERS: Emergency Provider Emergency Medicine; PCP Nurse Practitioner Family
DX: R07.9 Chest pain, unspecified (principal); Z87.891 Personal history of nicotine dependence; I25.10 Atherosclerotic heart disease of native coronary artery without angina pectoris; I11.0 Hypertensive heart disease with heart failure; I50.9 Heart failure, unspecified; Z86.73 Personal history of transient ischemic attack (TIA), and cerebral infarction without residual deficits; E78.5 Hyperlipidemia, unspecified
CPT/HCPCS: 36415; 71045; 80053; 84484; 85025; 85610; 93005; 99285

== ENCOUNTER 2023-04-18 12:36 | Outpatient (CLI) | payer MEDICARE, SELFPAY ==
[2023-04-18 13:04] LABS: Viscosity Semen Droplets; Volume Semen 1.5 mL (2-5)
[2023-04-18 13:15] LABS: Sperm Immotility 60 % (50-60)
[2023-04-18 13:16] LABS: White Blood Count Semen 0-4 /hpf
[2023-04-18 13:25] LABS: Sperm Progressive Motility 20 % (31-34)
[2023-04-18 13:26] LABS: Sperm Non-Progressive Motility 20 % (5-10)
[2023-04-18 13:55] LABS: Sperm Count 5.2 mill/mL (40-160)
[2023-04-18 14:33] LABS: Pathology Referral Yes; Sperm Vitality-% Live Sperm 61 %
== END 2023-04-18 12:37 | disposition home or self-care (01) ==
PROVIDERS: PCP Nurse Practitioner Family; Visit Provider Obstetrics & Gynecology
DX: Z84.2 Family history of other diseases of the genitourinary system (principal)
CPT/HCPCS: 80503; 89320

== ENCOUNTER → 2023-05-10 15:23 | Outpatient (BNVA) | payer MEDICARE, SELFPAY | PROVIDERS: PCP Family Medicine Adult Medicine; Visit Provider Nurse Practitioner Family | DX: I11.0 Hypertensive heart disease with heart failure (principal); I50.9 Heart failure, unspecified; I25.10 Atherosclerotic heart disease of native coronary artery without angina pectoris; Z95.1 Presence of aortocoronary bypass graft; F17.210 Nicotine dependence, cigarettes, uncomplicated | CPT/HCPCS: 99214 ==

== ENCOUNTER → 2023-05-31 18:40 | Outpatient (BNVA) | payer MEDICARE, SELFPAY | PROVIDERS: PCP Family Medicine Adult Medicine; Visit Provider Emergency Medicine | DX: R05.9 Cough, unspecified (principal); J44.1 Chronic obstructive pulmonary disease with (acute) exacerbation; J18.9 Pneumonia, unspecified organism | CPT/HCPCS: 87426 ==

== ENCOUNTER → 2023-07-03 13:17 | Outpatient (BNVA) | payer MEDICARE, SELFPAY | PROVIDERS: PCP Family Medicine Adult Medicine; Visit Provider Nurse Practitioner Family | DX: L57.8 Other skin changes due to chronic exposure to nonionizing radiation (principal); L82.1 Other seborrheic keratosis; D22.5 Melanocytic nevi of trunk; B35.1 Tinea unguium; D48.5 Neoplasm of uncertain behavior of skin | CPT/HCPCS: 11102; 17000; 99204 ==

== ENCOUNTER → 2023-08-27 14:22 | Outpatient (BNVA) | payer MEDICARE, SELFPAY | PROVIDERS: PCP Family Medicine Adult Medicine; Visit Provider Internal Medicine Cardiovascular Disease | DX: I11.0 Hypertensive heart disease with heart failure (principal); I50.9 Heart failure, unspecified; I25.10 Atherosclerotic heart disease of native coronary artery without angina pectoris; E78.5 Hyperlipidemia, unspecified; F17.210 Nicotine dependence, cigarettes, uncomplicated | CPT/HCPCS: 99214 ==

== ENCOUNTER 2023-09-23 11:00 | Emergency (ER) | payer MEDICARE, SELFPAY ==
[2023-09-23 11:19] VITALS: BP 129/80; PULSE 75; RESP 16; TEMP 37.1; O2SAT 97; BMI 21.6
--- NOTE | 2023-09-23 11:21 | ED_ITS ---
HPI - Back Pain/Injury 2 General: Chief Complaint: Back Pain/Injury Stated Complaint: right back pain Time Seen by Provider: 09/23/23 11:16 Source: patient Mode of arrival: ambulatory History of Present Illness: 63-year-old male presents emergency room complaint of right-sided low back pain. No triggering event. He has chronic back pain. No radiation of pain down the legs no difficulty with bowel or bladder control or function. Denies dysuria urgency or frequency has not noticed any hematuria. He has a history of a left renal cell CA with nephrectomy no history of nephrolithiasis. Worse with movement walking better with supine positioning and rest MD elicited complaint: back pain Pertinent past history: prior back pain Onset (ago): day(s) (1) Timing: constant Severity: mild Quality: sharp Location: lumbar spine (Right side) Radiation: none Associated symptoms: Deny abdominal pain, arthralgias, chills, change in bowel habits, difficulty walking, dysuria, fatigue, fecal incontinence, fever(s), hematuria, myalgias, nausea, numbness, syncope, tingling/numbness/burning, urinary frequency, urinary urgency, vomiting or weakness Review of Systems 2 Const: Denies: fever(s), chills or fatigue Card: Denies: chest pain or syncope Resp: Denies: dyspnea GI: Denies: abdominal pain, nausea, vomiting, fecal incontinence or change in bowel habits : Reports: flank pain; Denies: dysuria, urinary frequency, urinary urgency or hematuria Musc: Denies: neck pain or back pain Skin/Breast: Denies: rash Neuro: Denies: difficulty walking PFSH ED 2 PFSH: Medical History Single kidney Lt Renal CC, nephrectomy FHx: skin cancer Irritable bowel syndrome with diarrhea Hx of Bearden's palsy Anxiety Boxer's metacarpal fracture, neck, closed Dyslipidemia CAD (coronary artery disease) CABG x 2-3 vessel Aortic regurgitation Tricuspid regurgitation Mitral regurgitation CHF (NYHA class III, ACC/AHA stage C) 35% LVEF 01/2022 CVA (cerebral vascular accident) GERD (gastroesophageal reflux disease) Hypothyroid Hypertension Surgical History History of nephrectomy, left Renal cell carcinoma of left kidney S/P mitral valve repair History of open heart surgery History of neck surgery Family History Grandfather CAD (coronary artery disease) Denies family history of Diabetes Stroke Social History Smoking and tobacco/nicotine status: current every day tobacco/nicotine user cigarettes Packs smoked per day: 0.25 Alcohol intake: current Alcohol intake frequency: holidays/special occasions only Substance/Drug Use: current Other substance/drug use details: occassionlly Physical Exam 2 Const: GENERAL APPEARANCE: cooperative and comfortable O RIENTATION/CONSCIOUSNESS: Yes awake, Yes oriented to person, Yes oriented to place and Yes oriented to time HENMT: COMMON NORMALS: normocephalic, atraumatic and hearing grossly normal bilaterally HEAD & SCALP: normocephalic and atraumatic Resp: COMMON NORMALS: normal respiratory effort, No retractions, No use of accessory muscles and clear to auscultation bilaterally AUSCULTATION: clear to auscultation bilaterally Cardio: COMMON NORMALS: regular rate, regular rhythm and No murmurs present (Cardio) RATE: regular rate RHYTHM: regular rhythm GI: COMMON NORMALS: Soft to palpation and No hepatosplenomegaly present A USCULTATION: Yes normoactive bowel sounds PALPATION: Yes Soft to palpation, No Tenderness to palpation present (GI), No Guarding due to palpation present (GI) and Yes No hepatosplenomegaly present Extremity: COMMON NORMALS: normal to inspection, capillary refill normal, no clubbing, cyanosis or edema, no calf tenderness and no pedal edema OTHER: Adeel leg raising negative dorsum plantarflexion 5/5, in both left and right legs Neuro: SENSORIUM/ORIENTATION: Yes oriented to person, Yes oriented to place and Yes oriented to time Skin: COMMON NORMALS: no rashes or lesions noted GENERAL SKIN EXAM: no rashes or lesions noted Course 2 Vital Signs: Vital signs: Vital Signs Temperature 98.7 F 09/23/23 11:19 Pulse Rate 86 09/23/23 12:01 Respiratory Rate 16 09/23/23 11:19 Blood Pressure 138/80 09/23/23 12:01 Pulse Oximetry 95 09/23/23 12:01 Oxygen Delivery Me thod Room Air 09/23/23 12:01 MDM - Back Pain/Injury Medical Decision Making Labs reviewed. No acute findings on laboratory work. Discharge patient home steroid taper to begin tomorrow tizanidine and diclofenac as needed follow-up with primary care if not improving. No red flag symptoms imaging not done Medical Records I reviewed the patient's medical records. Labs I reviewed the patient's lab results. 09/23/23 11:38 09/23/23 11:38 Laboratory Results WBC 10.72 10^3/uL (3.29-11.43) 09/23/23 11:38 RBC 4.10 10^6/uL (3.85-5.65) 09/23/23 11:38 Hgb 13.30 g/dL (11.27-16.99) 09/23/23 11:38 Hct 40.6 % (37-53) 09/23/23 11:38 MCV 99.0 fl (82-101) 09/23/23 11:38 MCH 32.4 pg (27-33) 09/23/23 11:38 MCHC 32.8 g/dL (30-55) 09/23/23 11:38 RDW 13.2 % (12.1-15.1) 09/23/23 11:38 Plt Count 238 10^3/cmm (157-399) 09/23/23 11:38 MPV 9.4 fL (7.4-10.4) 09/23/23 11:38 Neut % (Auto) 72.5 % 09/23/23 11:38 Lymph % (Auto) 13.5 % 09/23/23 11:38 Becker % (Auto) 10.2 % 09/23/23 11:38 Eos % (Auto) 2.9 % 09/23/23 11:38 Baso % (Auto) 0.5 % 09/23/23 11:38 Neut # (Auto) 7.78 10^3/uL (1.8-7.7) H 09/23/23 11:38 Lymph # (Auto) 1.5 10^3/uL (0.8-4.8) 09/23/23 11:38 Becker # (Auto) 1.1 10^3/uL (0.2-0.9) H 09/23/23 11:38 Eos # (Auto) 0.3 10^3/uL (0.0-0.8) 09/23/23 11:38 Baso # (Auto) 0.1 10^3/uL (0.0-0.1) 09/23/23 11:38 Nucleated RBC % (auto) 0 % 09/23/23 11:38 Nucleated RBCs # 0.0 /100WBC 09/23/23 11:38 Sodium 138 mmol/L (136-145) 09/23/23 11:38 Potassium 4.3 mmol/L (3.5-5.1) 09/23/23 11:38 Chloride 100 mmol/L (98-107) 09/23/23 11:38 Carbon Dioxide 27 mmol/L (22-29) 09/23/23 11:38 Anion Gap 15.3 (5-19) 09/23/23 11:38 BUN 23 mg/dL (8-23) 09/23/23 11:38 Creatinine 1.3 mg/dL (0.7-1.2) H 09/23/23 11:38 GFR Calculation 55.8 mL/min (90-130) L 09/23/23 11:38 Glucose 88 mg/dL (65-115) 09/23/23 11:38 Calculated Osmolality 289 mOsm/kg (285-295) 09/23/23 11:38 Calcium 10.1 mg/dL (8.5-10.5) 09/23/23 11:38 Total Bilirubin 0.5 mg/dL (0.15-1.2) 09/23/23 11:38 AST 16 U/L (0-40) 09/23/23 11:38 ALT 13 U/L (0-41) 09/23/23 11:38 Alkaline Phosphatase 110 U/L (40-130) 09/23/23 11:38 Total Protein 7.3 g/dL (6.6-8.7) 09/23/23 11:38 Albumin 4.3 g/dL (3.5-5.2) 09/23/23 11:38 Globulin 3.0 g/dL (1.3-4.6) 09/23/23 11:38 Urine Color Yellow (Yellow) 09/23/23 11:44 Urine Appearance Clear (CLEAR) 09/23/23 11:44 Urine pH 5 (5-7) 09/23/23 11:44 Ur Specific [place] 1.025 (1.005-1.030) 09/23/23 11:44 Urine Protein Neg (Negative) 09/23/23 11:44 Urine Glucose (UA) Norm (Normal) 09/23/23 11:44 Urine Ketones Negative (Negative) 09/23/23 11:44 Urine Blood Neg (Negative) 09/23/23 11:44 Urine Nitrate Negative (Negative) 09/23/23 11:44 Urine Bilirubin Neg (Negative) 09/23/23 11:44 Urine Urobilinogen 1 mg/dL (Negative) H 09/23/23 11:44 Ur Leukocyte Esterase Negative (Negative) 09/23/23 11:44 All radiology interpretation(s) finalized by discharge Discharge Plan Discharge Patient Disposition: Home Clinical Impression: Strain of lumbar region Condition: Stable Prescriptions: New tizanidine 4 mg tablet 4 mg PO Q6H PRN (Reason: muscle spasticity) Qty: 20 0RF Rx Instructions: do not exceed 3 doses per 24 hrs prednisone 20 mg tablet 20 mg PO TID Qty: 15 0RF Rx Instructions: 1 p.o. 3 times daily x3 days, 1 p.o. twice daily x2 days, 1 p.o. daily x2 days diclofenac sodium 75 mg tablet,delayed release (DR/EC) 75 mg PO Q12H PRN (Reason: pain) Qty: 20 0RF No Action nitroglycerin 0.4 mg tablet, sublingual 0.4 mg sublingual Q5M PRN (Reason: chest pain) Qty: 30 3RF Rx Instructions: do not exceed 3 doses per episode valsartan 160 mg tablet 160 mg PO BID Qty: 180 3RF diazepam [Valium] 5 mg tablet 5 mg PO BID PRN (Reason: anxiety) Qty: 60 0RF albuterol sulfate 90 mcg/actuation HFA aerosol inhaler 2 inh inhalation Q6H PRN (Reason: shortness of breath or wheezing) Qty: 8.5 0RF pantoprazole 40 mg tablet,delayed release (DR/EC) 40 mg PO DAILY Qty: 180 3RF carvedilol 25 mg tablet 25 mg PO BID Qty: 180 3RF clonidine HCl 0.1 mg tablet 0.1 mg PO BID PRN (Reason: Blood Pressure) Men's 50 Plus Daily Formula 400-20-370 mcg Tablet 1 tab PO DAILY acetaminophen 325 mg tablet 650 mg PO BID PRN Discharge Orders: Discharge ED (Routine); Ordered 09/23/23 Ordered By: Gio Oneil Referrals: Sher Petersen MD [Primary Care Provider] - Discharge Diet: Usual diet Discharge Activity: Resume usual activity Patient Instructions: Acute Low Back Pain (ED), Opioid Safety, Pain Management Activity Restrictions/Additional Instructions: Thank you for choosing [facility] for your healthcare needs today. Please realize this is an emergency room and that we are providing you with a medical screening exam and this may not be complete and all inclusive of all the testing and or work up that you may need to determine your ailment or severity of your illness. It is very important that you follow up as instructed or that you return to the Emergency Department should you have concerns or if your condition changes or worsens in any way. You were seen today for low back pain symptoms improved with medications given laboratory test did not show significant abnormality. Liver functions white count and urine were all normal. Use diclofenac and tizanidine as needed for discomfort start prednisone taper tomorrow Coding Level of Care Code ED Biomedical Engineering Professor 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
[2023-09-23] MEDS: ketorolac 30 mg/mL INJ IVP (11:51)
[2023-09-23] MEDS: orphenadrine 30 mg/mL Inj 2 mL 60 MG IVP (11:54)
[2023-09-23] MEDS: dexamethasone 10 mg/mL INJ IVP (11:58)
[2023-09-23 11:59] LABS: Basophils # 0.1 10^3/uL (0.0-0.1); Basophils % 0.5 %; Eosinophils # 0.3 10^3/uL (0.0-0.8); Eosinophils % 2.9 %; Hematocrit 40.6 % (37-53); Lymphocytes # 1.5 10^3/uL (0.8-4.8); Lymphocytes % 13.5 %; Mean Corpuscular HGB Conc 32.8 g/dL (30-55); Mean Corpuscular Hemoglobin 32.4 pg (27-33); Mean Platelet Volume 9.4 fL (7.4-10.4); Monocytes # 1.1 10^3/uL (0.2-0.9); Monocytes % 10.2 %; Neutrophils # 7.78 10^3/uL (1.8-7.7); Neutrophils % 72.5 %; Nucleated Red Blood Cells % 0 %; Platelet Count 238 10^3/cmm (157-399); Red Cell Distribution Width 13.2 % (12.1-15.1); White Blood Count 10.72 10^3/uL (3.29-11.43)
[2023-09-23 12:01] VITALS: BP 138/80; PULSE 86; O2SAT 95
[2023-09-23 12:04] LABS: Add Urine Microscopic? NO; Charge for UA Resulting for Rev
[2023-09-23 12:12] LABS: Specific Gravity, Urine 1.025 (1.005-1.030); Urine Appearance Clear (CLEAR); Urine Color Yellow (Yellow); pH Urine 5 (5-7)
[2023-09-23 12:13] LABS: Bilirubin Urine Neg (Negative); Blood Urine Neg (Negative); Glucose Urine UA Norm (Normal); Ketones Urine Negative (Negative); Leukocyte Esterase Urine Negative (Negative); Nitrate Urine Negative (Negative); Protein Urine Neg (Negative); Urobilinogen Urine 1 mg/dL (Negative)
[2023-09-23 12:14] LABS: Alanine Aminotransferase 13 U/L (0-41); Albumin Level 4.3 g/dL (3.5-5.2); Alkaline Phosphatase 110 U/L (40-130); Anion Gap 15.3 (5-19); Aspartate Amino Transferase 16 U/L (0-40); Blood Urea Nitrogen 23 mg/dL (8-23); Calcium 10.1 mg/dL (8.5-10.5); Carbon Dioxide 27 mmol/L (22-29); Chloride 100 mmol/L (98-107); Glomerular Filtration Rate 55.8 mL/min (90-130); Glucose 88 mg/dL (65-115); Osmolality Calculated 289 mOsm/kg (285-295); Potassium 4.3 mmol/L (3.5-5.1); Sodium 138 mmol/L (136-145); Total Bilirubin 0.5 mg/dL (0.15-1.2); Total Protein 7.3 g/dL (6.6-8.7)
[2023-09-23 12:56] VITALS: BP 136/86; PULSE 75; O2SAT 95
== END 2023-09-23 12:55 | disposition home or self-care (01) ==
PROVIDERS: Emergency Provider Family Medicine; PCP Family Medicine Adult Medicine
DX: S39.012A Strain of muscle, fascia and tendon of lower back, initial encounter (principal); Z72.0 Tobacco use; Z90.5 Acquired absence of kidney; E78.5 Hyperlipidemia, unspecified; I25.10 Atherosclerotic heart disease of native coronary artery without angina pectoris; Z95.1 Presence of aortocoronary bypass graft; I11.0 Hypertensive heart disease with heart failure; I50.9 Heart failure, unspecified; Z86.73 Personal history of transient ischemic attack (TIA), and cerebral infarction without residual deficits; Z85.528 Personal history of other malignant neoplasm of kidney; X58.XXXA Exposure to other specified factors, initial encounter
CPT/HCPCS: 80053; 81003; 85025; 96374; 96375; 99284; J1100; J1885; J2360

== ENCOUNTER → 2024-04-24 11:12 | Outpatient (BNVA) | payer MEDICARE, SELFPAY | PROVIDERS: PCP Family Medicine Adult Medicine; Visit Provider Nurse Practitioner Family | DX: I25.10 Atherosclerotic heart disease of native coronary artery without angina pectoris (principal); I11.0 Hypertensive heart disease with heart failure; I50.9 Heart failure, unspecified; F17.200 Nicotine dependence, unspecified, uncomplicated ==

== ENCOUNTER → 2024-04-24 11:12 | Outpatient (BNVA) | payer MEDICARE, SELFPAY | PROVIDERS: PCP Family Medicine Adult Medicine; Visit Provider Nurse Practitioner Family | DX: I50.20 Unspecified systolic (congestive) heart failure (principal); Z87.891 Personal history of nicotine dependence | CPT/HCPCS: 99214 ==

== ENCOUNTER 2024-05-22 09:41 | Outpatient (CLI) | payer MEDICARE, SELFPAY ==
--- NOTE | 2024-05-22 09:56 | ECG_ITS ---
[facility] Test Date: 2024-05-22 Pat Name: Zaire Lujan Department: Room: Gender: Male Pediatric Physiatrist: : 1960 Requested By: Magui Vela Order Number: [id number] Yossi MD: MELANI REICH Interpretive Statements NAME OF STUDY: EXERCISE SESTAMIBI STRESS TEST INDICATION: PRE-OP CLEARANCE, EXERCISE DATA: The patient was exercised by Oscar protocol. Baseline heart rate was 65 beats per minute. Baseline blood pressure was 181/88 millimeters of mercury. Target heart rate was 130 beats per minute. Maximum heart rate achieved was 138, which was 87% of the target heart rate. Maximum blood pressure was 192/88 millimeters of mercury. Total exercise time was 9 minutes 36 seconds. Maximum METs achieved was 13, maximum VO2 was 47.3. The reason for ending the test was completion of the protocol. The patient complained of shortness of breath during the stress test, which then resolved at the end of the test. ELECTROCARDIOGRAM: BASELINE: Showed sinus rhythm, normal axis, Non specific inferolateral ST-T changes at the baseline noted. EXERCISE: At the peak exercise level, No significant worsening of inferolateral ST-T changes noted. RECOVERY: During the recovery period, heart rate dropped appropriately. No significant ST-T changes in the recovery suggestive of ischemia noted. CONCLUSION: 1. Exercise capacity good. 2. Heart rate response was appropriate. 3. Blood pressure response was hypertensive. 4. Symptoms not suggestive of ischemia. 5. Electrocardiogram portion of the stress test was not suggestive of ischemia. Electronically Signed On 05-22-2024 19:15:16 CDT by MELANI REICH [email or web address]
--- NOTE | 2024-05-22 09:57 | NMCV_ITS ---
NM jean claude perf SPECT r/s* [id number] Zaire Lujan Age: 63 Gender: M : 1960 Exam Date: 05/22/2024 09:57 Ordering Phys: Magui Vela Technologist: LIDIA Lemons Exam Location: [facility] Indications: PRE OP CLEARANCE , S/P CABG X3 STRESS TEST Please see separate stress test report in [facility] for full findings IMAGE PROTOCOL Rest/Stress 1 Exercise Day Radiopharmaceutical Dose (mCi) Administration Site Administered by Rest: Tc-99m 10.8 IV LIDIA Beltre Sestamibi Stress:Tc-99m 32.6 IV LIDIA Beltre Sestamibi Rest: 22-May-2024 60 Discovery 630 Stress: 22-May-2024 15 Discovery 630 Radiopharmaceutical was injected at 85 % maximum heart rate. Images obtained in supine and prone position. SPECT RESULTS Technical Quality: Excellent Raw Data Analysis: Normal Image Corrections: No attenuation or motion correction applied Summed Stress Score: 14 Summed Rest Score: 9 Summed Difference Score: 5 PERFUSION FINDINGS FUNCTIONAL RESULTS (calculated via Gated SPECT) Stress Image LV EF (%): 45 Stress EDV (mL):133 TID: 0.86 Stress ESV (mL):57 FUNCTIONAL FINDINGS: Moderately reduced left ventricular ejection fraction 45%, with inferior wall akinesis IMPRESSIONS Large area of fixed perfusion defect noted in the basal to distal inferior and basal to mid inferolateral wall without reversibility suggestive of old myocardial infarction versus scarring, no significant ischemia noted. This study is negative for ischemia with evidence of old myocardial infarction. EKG segment will be documented separately. Oswald Olea MD (Electronically Signed) Final Date: 22 May 2024 20:32 S
[2024-05-22 10:02] VITALS: BMI 19.5
[2024-05-22 11:32] VITALS: BP 175/81; PULSE 88
== END 2024-05-22 09:42 | disposition home or self-care (01) ==
PROVIDERS: PCP Family Medicine Adult Medicine; Visit Provider Nurse Practitioner Family
DX: I25.10 Atherosclerotic heart disease of native coronary artery without angina pectoris (principal); R94.39 Abnormal result of other cardiovascular function study
CPT/HCPCS: 36415; 78452; 93017; 96374; A9500

== ENCOUNTER 2024-05-23 12:00 | Outpatient (CLI) | payer MEDICARE, SELFPAY ==
--- NOTE | 2024-05-23 12:00 | USCV_ITS ---
Zaire Lujan Age: 63 Gender: M : 1960 Exam Date: 05/23/2024 12:36 Ordering Phys: Magui Vela Technologist: Exam Location: [facility] [place] Indication: murmur BP: 140 / 80 HR: 96 Rhythm: Sinus Technical Quality: Adequate MEASUREMENTS (Male / Female) Normal Values 2D ECHO LV Diastolic Diameter PLAX 5.7 cm 4.2 - 5.9 / 3.9 - 5.3 cm IVS Diastolic Thickness 1.4 cm 0.6 - 1.0 / 0.6 - 0.9 cm IVS Systolic Thickness 1.6 cm LVPW Diastolic Thickness 1.4 cm 0.6 - 1.0 / 0.6 - 0.9 cm LVPW Systolic Thickness 1.7 cm LVOT Diameter 2.0 cm LV Ejection Fraction 2D Teich 35.9 % LV Ejection Fraction MOD 4C 55.8 % LV Ejection Fraction MOD 2C 60.6 % LV Ejection Fraction 2C AL 61.2 % LA Diameter 3.8 cm RA Systolic Volume 4C AL 64.8 ml RA Systolic Volume 4C MOD 63.0 ml M-MODE LA Ao Ratio MM 1.2 AV Cusp Separation MM 1.4 cm DOPPLER AV Peak Velocity 200.2 cm/s LVOT Peak Velocity 41.0 cm/s AV Area Cont Eq vti 2.8 cm squared AV Area Cont Eq pk 0.7 cm squared MV Area PHT 2.3 cm squared Mitral E to A Ratio 1.6 TV Peak Velocity 182.0 cm/s TR Peak Velocity 271.0 cm/s TR Peak Gradient 29.4 mmHg Right Atrial Pressure 3.0 mmHg Pulmonary Artery Systolic Pressu 32.4 mmHg PV Peak Velocity 107.0 cm/s FINDINGS Left Ventricle Left ventricle is normal size. LV systolic function is moderately reduced with EF of 35-40%. Moderate to severe hypokinesis of inferoseptal, inferior and septal guadarrama. Right Ventricle Normal in size and function Right Atrium Normal in size Left Atrium Normal in size Mitral Valve Mitral annuloplasty ring seen. Moderate to severe mitral regurgitation Aortic Valve Aortic valve is thickened. Mild to moderate aortic regurgitation. No significant stenosis. Tricuspid Valve Mild to moderate tricuspid regurgitation. Pulmonary artery systolic pressure is normal. Pulmonic Valve Not well visualized Pericardium Normal Aorta Normal in size IVC Not well visualized. CONCLUSIONS LV systolic function is only reduced with EF of 35 to 40%. Above-mentioned regional wall motion abnormalities. Mitral annuloplasty ring seen. Moderate to severe mitral regurgitation Mild to moderate aortic regurgitation Mild to moderate tricuspid regurgitation Compared to prior echocardiogram from 2021, mitral regurgitation has worsened. Gokul White MD (Electronically Signed) Final Date: 25 May 2024 10:35 S
== END 2024-05-23 12:20 | disposition home or self-care (01) ==
PROVIDERS: PCP Family Medicine Adult Medicine; Visit Provider Nurse Practitioner Family
DX: I50.9 Heart failure, unspecified (principal); I25.10 Atherosclerotic heart disease of native coronary artery without angina pectoris; I49.8 Other specified cardiac arrhythmias; I34.0 Nonrheumatic mitral (valve) insufficiency; I35.1 Nonrheumatic aortic (valve) insufficiency; I07.1 Rheumatic tricuspid insufficiency; Z95.2 Presence of prosthetic heart valve; I35.8 Other nonrheumatic aortic valve disorders
CPT/HCPCS: 93306; 99214

== ENCOUNTER 2024-06-08 10:42 | Emergency (ER) | payer MEDICARE, SELFPAY ==
[2024-06-08 10:48] VITALS: BP 94/56; PULSE 67; RESP 17; TEMP 36.7; O2SAT 95; BMI 18.8
[2024-06-08 11:51] VITALS: BP 111/53; PULSE 60; RESP 16; O2SAT 98
[2024-06-08 12:00] VITALS: BP 118/39; PULSE 64; RESP 16; O2SAT 98
--- NOTE | 2024-06-08 12:01 | CTR_ITS ---
PROCEDURE INFORMATION: Exam: CT Cervical Spine Without Contrast Exam date and time: 06/08/2024 12:10 PM Age: 63 years old Clinical indication: Neck pain; Prior surgery; Surgery date: 6+ months TECHNIQUE: Imaging protocol: Computed tomography of the cervical spine without contrast. Radiation optimization: All CT scans at this facility use at least one of these dose optimization techniques: automated exposure control; mA and/or kV adjustment per patient size (includes targeted exams where dose is matched to clinical indication); or iterative reconstruction. COMPARISON: CT cervical spin wo con* [id number] 01/29/2023 1:57 PM RADIATION DOSE METRICS: Total DLP (mGy-cm): 180.47 FINDINGS: Bones: Post ACDF at C5-C6 with no hardware complications. Posterior osteophyte disc complex at C4-C5 and C6-C7 with mild bony canal stenosis. CPPD changes around the dens. Stable mild loss of height of the C7 and T1 vertebral bodies. No acute compression deformity. No spondylolisthesis. No acute fracture. Lungs: Lung apices are normal. Vasculature: Bilateral carotid calcifications. Soft tissues: Unremarkable. CT/CT cervical spin wo con* [id number] IMPRESSION: Mild degenerative disease of the cervical spine. Post ACDF at C5-C6 with no hardware complications.
--- NOTE | 2024-06-08 12:11 | ED_ITS ---
HPI - Neck Pain/Injury General: Chief Complaint: Neck Pain/Injury Stated Complaint: neck inj Time Seen by Provider: 06/08/24 11:53 Source: patient Mode of arrival: ambulatory Limitations: no limitations History of Present Illness: 63-year-old male with a history of neck pain has had a history of a neck fusion as well. He states over the last week he has had some increasing pain to the right side of his neck states it radiates to the shoulder blade its much worse with palpation and movement. Denies any fever Associated symptoms: Denies headache(s) or nausea Related Data Home Medications Medication Instructions Recorded Confirmed clonidine HCl 0.1 mg tablet 0.1 mg PO BID PRN Blood Pressure 09/29/22 04/24/24 [id number] acid-vit 1 tab PO DAILY 09/29/22 04/24/24 K-lycop 400 mcg-20 mcg-370 mcg tablet (Men's 50 Plus Daily Formula) acetaminophen 325 mg tablet 650 mg PO BID PRN 03/05/23 04/24/24 Previous Rx's Medication Instructions Recorded pantoprazole 40 mg tablet,delayed 40 mg PO DAILY #180 tabs 06/27/22 release albuterol sulfate 90 mcg/actuation 2 inh inhalation Q6H PRN shortness 05/31/23 aerosol inhaler of breath or wheezing #8.5 grams nitroglycerin 0.4 mg sublingual 0.4 mg sublingual Q5M PRN chest 08/27/23 tablet pain #30 tabs valsartan 160 mg tablet 160 mg PO BID #180 tabs 08/27/23 fluticasone propionate 50 1 spray intranasal BID PRN allergy 11/08/23 mcg/actuation nasal symptoms #16 grams spray,suspension (Flonase Allergy Relief) carvedilol 25 mg tablet 25 mg PO BID #180 tabs 12/10/23 diclofenac sodium 75 mg 75 mg PO Q12H PRN pain #60 tabs 02/07/24 tablet,delayed release tizanidine 4 mg tablet 4 mg PO Q8H PRN muscle spasticity 02/07/24 #30 tabs hydrocodone 5 mg-acetaminophen 325 1 tab PO Q6H PRN pain #14 tabs 06/08/24 mg tablet methocarbamol 750 mg tablet 750 mg PO Q6H PRN spasms #20 tabs 06/08/24 naproxen 500 mg tablet (Naprosyn) 500 mg PO BID PRN pain #20 tabs 06/08/24 Allergies Allergy/AdvReac Type Severity Reaction Status Date / Time nortriptyline Allergy Severe ADR-Halluci Verified 02/07/24 15:26 nating fluoxetine [From Prozac] Allergy Intermediate rash Verified 02/07/24 15:26 aspirin Allergy Mild headache Verified 02/07/24 15:26 codeine Allergy Mild gi upset Verified 02/07/24 15:26 hydromorphone [From Dilaudid] Allergy Mild itching Verified 02/07/24 15:26 Review of Systems Const: Denies: fever(s), chills, body aches or change in appetite ENMT: Denies: throat pain or dental pain Card: Denies: chest pain Resp: Denies: dyspnea GI: Denies: abdominal pain, nausea, vomiting or diarrhea Musc: Reports: neck pain; Denies: back pain Skin/Breast: Denies: rash Neuro: Denies: headache(s) PFSH ED PFSH: Medical History Acute chest wall pain Allergic rhinitis Single kidney Lt Renal CC, nephrectomy FHx: skin cancer Irritable bowel syndrome with diarrhea Hx of Bearden's palsy Anxiety Boxer's metacarpal fracture, neck, closed Dyslipidemia CAD (coronary artery disease) CABG x 2-3 vessel Aortic regurgitation Tricuspid regurgitation Mitral regurgitation CHF (NYHA class III, ACC/AHA stage C) 35% LVEF 01/2022 CVA (cerebral vascular accident) GERD (gastroesophageal reflux disease) Hypothyroid Hypertension Surgical History History of nephrectomy, left Renal cell carcinoma of left kidney S/P mitral valve repair History of open heart surgery History of neck surgery Family History Grandfather CAD (coronary artery disease) Denies family history of Diabetes Stroke Social History Smoking and tobacco/nicotine status: current some day tobacco/nicotine user cigarettes Packs smoked per day: 0.25 Alcohol intake: current Alcohol intake frequency: holidays/special occasions only Substance/Drug Use: current Other substance/drug use details: occassionlly Physical Exam Const: COMMON NORMALS: no acute distress, patient oriented x3 and healthy appe miriamng HENMT: COMMON NORMALS: normocephalic and atraumatic HEAD & SCALP: normocephalic and atraumatic Eye: COMMON NORMALS: conjunctivae normal CONJUNCTIVA: Yes conjunctivae normal Neck/C-Spine: OTHER: Tenderness along right side of the neck has pain when he looks to the right as well no midline tenderness Chest: COMMONS NORMALS: normal inspection of the chest Resp: COMMON NORMALS: normal respiratory effort Cardio: COMMON NORMALS: regular rate, regular rhythm and No murmurs present (Cardio) RATE: regular rate RHYTHM: regular rhythm Extremity: COMMON NORMALS: normal to inspection and full ROM Neuro: COMMON NORMALS: patient oriented x3, moves all extremities and no focal motor deficits Psych: COMMON NORMALS: mental status grossly normal, Normal thought process present and cooperative THOUGHT PROCESS: Normal thought process present Skin: COMMON NORMALS: no rashes or lesions noted and no wounds GENERAL SKIN EXAM: no rashes or lesions noted Course Vital Signs: Vital signs: Vital Signs Temperature 98.1 F 06/08/24 10:48 Pulse Rate 69 06/08/24 12:31 Respiratory Rate 16 06/08/24 12:31 Blood Pressure 107/53 06/08/24 12:31 Pulse Oximetry 98 06/08/24 12:31 Oxygen Delivery Me thod Room Air 06/08/24 12:31 MDM - Neck Pain/Injury Medical Decision Making Patient presents here with neck pain he has no signs of cord compression or meningitis we will place him on pain meds we will get him follow-up with spine surgery he is return if worsening. Medical Records I reviewed the patient's medical records. Lab Data Radiology Impressions Cervical Spine CT 06/08/24 12:01 IMPRESSION: Mild degenerative disease of the cervical spine. Post ACDF at C5-C6 with no hardware complications. All radiology interpretation(s) finalized by discharge Discharge Plan Discharge Patient Disposition: Home Clinical Impression: Neck pain Condition: Stable Prescriptions: New hydrocodone-acetaminophen 5-325 mg tablet 1 tab PO Q6H PRN (Reason: pain) Qty: 14 0RF methocarbamol 750 mg tablet 750 mg PO Q6H PRN (Reason: spasms) Qty: 20 0RF Naprosyn 500 mg tablet 500 mg PO BID PRN (Reason: pain) Qty: 20 0RF No Action nitroglycerin 0.4 mg tablet, sublingual 0.4 mg sublingual Q5M PRN (Reason: chest pain) Qty: 30 3RF Rx Instructions: do not exceed 3 doses per episode valsartan 160 mg tablet 160 mg PO BID Qty: 180 3RF albuterol sulfate 90 mcg/actuation HFA aerosol inhaler 2 inh inhalation Q6H PRN (Reason: shortness of breath or wheezing) Qty: 8.5 0RF fluticasone propionate [Flonase Allergy Relief] 50 mcg/actuation spray,suspension 1 spray intranasal BID PRN (Reason: allergy symptoms) Qty: 16 0RF Rx Instructions: administer into each nostril diclofenac sodium 75 mg tablet,delayed release (DR/EC) 75 mg PO Q12H PRN (Reason: pain) Qty: 60 1RF tizanidine 4 mg tablet 4 mg PO Q8H PRN (Reason: muscle spasticity) Qty: 30 1RF Rx Instructions: do not exceed 3 doses per 24 hrs pantoprazole 40 mg tablet,delayed release (DR/EC) 40 mg PO DAILY Qty: 180 3RF carvedilol 25 mg tablet 25 mg PO BID Qty: 180 3RF clonidine HCl 0.1 mg tablet 0.1 mg PO BID PRN (Reason: Blood Pressure) Men's 50 Plus Daily Formula 400-20-370 mcg Tablet 1 tab PO DAILY acetaminophen 325 mg tablet 650 mg PO BID PRN Discharge Orders: Discharge ED (Routine); Ordered 06/08/24 Ordered By: Natali Minor Referrals: Elvin Galeano DO [Physician] - 4-7 days Sher Petersen MD [Primary Care Provider] - Discharge Diet: Advance as tolerated Discharge Activity: Resume usual activity Patient Instructions: Neck Pain (ED) Coding Level of Care Code ED Cooling Room Attendant 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
[2024-06-08] MEDS: methocarbamol 750 mg Tablet 1500 MG PO (12:27)
[2024-06-08] MEDS: HYDROcodone-acetaminophen 10-325 mg Tablet 1 TAB PO (12:28)
[2024-06-08] MEDS: dexamethasone 10 mg/mL INJ IM (12:29)
[2024-06-08 12:31] VITALS: BP 107/53; PULSE 69; RESP 16; O2SAT 98
[2024-06-08 13:14] VITALS: BP 102/57; PULSE 63; RESP 16; O2SAT 95
--- NOTE | 2024-06-09 08:27 | DCPLANNER ---
messaged ortho for er f/u
== END 2024-06-08 13:15 | disposition home or self-care (01) ==
PROVIDERS: Emergency Provider Emergency Medicine; PCP Family Medicine Adult Medicine
DX: M54.2 Cervicalgia (principal); M25.511 Pain in right shoulder; Z98.1 Arthrodesis status
CPT/HCPCS: 72125; 96372; 99284; J1100

== ENCOUNTER → 2024-06-19 15:48 | Outpatient (BNVA) | payer MEDICARE, SELFPAY | PROVIDERS: PCP Family Medicine Adult Medicine; Visit Provider Orthopaedic Surgery | DX: M54.2 Cervicalgia (principal) | CPT/HCPCS: 72050; 99204 ==

== ENCOUNTER 2024-07-02 12:00 | Inpatient (IN) | payer MEDICARE, SELFPAY ==
[2024-07-02] VITALS (70 sets, daily range): BP systolic 99–181; BP diastolic 55–82; PULSE 65–86; RESP 8–26; TEMP 36.4–37.2; O2SAT 93–100; BMI 16.6; BMI 19.5
--- NOTE | 2024-07-02 11:57 | ECG_ITS ---
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 Measurements Intervals [place] Rate: 64 P: 85 [place]: 159 QRS: 99 QRSD: 105 T: 197 QT: 439 QTc: 455 Interpretive Statements SINUS RHYTHM BORDERLINE RIGHT AXIS DEVIATION [QRS AXIS > 90] POSSIBLE INFERIOR MYOCARDIAL INFARCTION , OF INDETERMINATE AGE [30 ms Q WAVE IN II/aVF] Compared to ECG 03/28/2023 18:42:35 No significant changes Electronically Signed On 07-02-2024 22:38:13 CDT by Aleida Combs M.D. [id number]
[2024-07-02] MEDS: aspirin 81 mg Chew Tablet 324 MG PO (12:19)
[2024-07-02 12:21] LABS: Basophils % 0.3 %; Eosinophils # 0.1 10^3/uL (0.0-0.8); Eosinophils % 1.2 %; Hematocrit 35.1 % (37-53); Lymphocytes # 0.9 10^3/uL (0.8-4.8); Lymphocytes % 7.9 %; Mean Corpuscular HGB Conc 32.5 g/dL (30-55); Mean Corpuscular Hemoglobin 32.7 pg (27-33); Mean Corpuscular Volume 100.6 fl (82-101); Mean Platelet Volume 9.4 fL (7.4-10.4); Monocytes # 0.8 10^3/uL (0.2-0.9); Monocytes % 7.3 %; Neutrophils # 9.26 10^3/uL (1.8-7.7); Neutrophils % 82.9 %; Nucleated Red Blood Cells % 0 %; Platelet Count 192 10^3/cmm (157-399); Red Blood Count 3.49 10^6/uL (3.85-5.65); Red Cell Distribution Width 13.3 % (12.1-15.1); White Blood Count 11.16 10^3/uL (3.29-11.43)
[2024-07-02 12:41] LABS: Troponin(5th) Baseline 23 ng/L (0-15)
[2024-07-02 12:49] LABS: Alanine Aminotransferase 13 U/L (0-41); Alkaline Phosphatase 68 U/L (40-130); Aspartate Amino Transferase 16 U/L (0-40); Blood Urea Nitrogen 15 mg/dL (8-23); Calcium 7.9 mg/dL (8.5-10.5); Carbon Dioxide 28 mmol/L (22-29); Chloride 101 mmol/L (98-107); Creatinine Clr Calc Pharmacy 46.1383; Glomerular Filtration Rate 67.4 mL/min (90-130); Glucose 123 mg/dL (65-115); Osmolality Calculated 282 mOsm/kg (285-295); Sodium 135 mmol/L (136-145); Total Bilirubin 0.5 mg/dL (0.15-1.2)
[2024-07-02 12:51] LABS: Anion Gap 10.5 (5-19); Potassium 4.5 mmol/L (3.5-5.1)
--- NOTE | 2024-07-02 13:56 | ECG_ITS ---
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 Measurements Intervals [place] Rate: 73 P: 87 [place]: 168 QRS: 93 QRSD: 105 T: 113 QT: 401 QTc: 444 Interpretive Statements SINUS RHYTHM Non diagnostic T wave changes BORDERLINE RIGHT AXIS DEVIATION [QRS AXIS > 90] POSSIBLE INFERIOR MYOCARDIAL INFARCTION , PROBABLY OLD [30 ms Q WAVE IN II/aVF] Compared to ECG 07/02/2024 11:57:45 No significant changes Electronically Signed On 07-02-2024 22:42:36 CDT by Aleida Combs M.D. [id number]
--- NOTE | 2024-07-02 14:08 | ED_ITS ---
HPI - Chest Pain 2 General: Chief Complaint: Chest Pain Stated Complaint: Chest Pain Time Seen by Provider: 07/02/24 12:05 History of Present Illness: 64-[facility] pain that began this morning he has a known cardiac history. He Is complaining of chest comfort radiating to his neck. He was given aspirin and route. He has had a little associated shortness of breath with it. Patient has a history of congestive heart failure as well he is not recently had any orthopnea or PND no increased swelling of the lower extremities. Associated symptoms: Deny abdominal pain, dyspnea or fever(s) Related Data Home Medications Medication Instructions Recorded Confirmed acetaminophen 300 mg-codeine 30 mg 1 tab PO Q4H 07/02/24 07/02/24 tablet amoxicillin 500 mg capsule 500 mg PO ONCE 07/02/24 07/02/24 amoxicillin 875 mg-potassium 1 tab PO BID 07/02/24 07/02/24 clavulanate 125 mg tablet carvedilol 25 mg tablet 25 mg PO BID 07/02/24 07/02/24 Previous Rx's Medication Instructions Recorded nitroglycerin 0.4 mg sublingual 0.4 mg sublingual Q5M PRN chest 08/27/23 tablet pain #30 tabs valsartan 160 mg tablet 160 mg PO BID #180 tabs 08/27/23 Allergies Allergy/AdvReac Type Severity Reaction Status Date / Time nortriptyline Allergy Severe ADR-Halluci Verified 07/02/24 12:09 nating fluoxetine [From Prozac] Allergy Intermediate rash Verified 07/02/24 12:09 aspirin Allergy Mild headache Verified 07/02/24 12:09 codeine Allergy Mild gi upset Verified 07/02/24 12:09 hydromorphone [From Dilaudid] Allergy Mild itching Verified 07/02/24 12:09 Review of Systems 2 Const: Denies: fever(s) or chills Card: Reports: chest pain Resp: Denies: dyspnea GI: Denies: abdominal pain : Denies: dysuria, urinary frequency or urinary urgency Musc: Denies: neck pain or back pain Skin/Breast: Denies: rash PFSH ED 2 PFSH: Medical History Psychiatric care Acute chest wall pain Allergic rhinitis Single kidney Lt Renal CC, nephrectomy FHx: skin cancer Irritable bowel syndrome with diarrhea Hx of Bearden's palsy Anxiety Boxer's metacarpal fracture, neck, closed Dyslipidemia CAD (coronary artery disease) CABG x 2-3 vessel Aortic regurgitation Tricuspid regurgitation Mitral regurgitation CHF (NYHA class III, ACC/AHA stage C) 35% LVEF 01/2022 CVA (cerebral vascular accident) GERD (gastroesophageal reflux disease) Hypothyroid Hypertension Surgical History History of nephrectomy, left Renal cell carcinoma of left kidney S/P mitral valve repair History of open heart surgery History of neck surgery Family History Grandfather CAD (coronary artery disease) Denies family history of Diabetes Stroke Social History Smoking and tobacco/nicotine status: unknown if used tobacco/nicotine Alcohol intake: current Alcohol intake frequency: holidays/special occasions only Substance/Drug Use: current Other substance/drug use details: occassionlly Physical Exam 2 Const: GENERAL APPEARANCE: cooperative ORIENTATION/CONSCIOUSNESS: Yes awake, Yes oriented to person, Yes oriented to place and Yes oriented to time HENMT: COMMON NORMALS: normocephalic, atraumatic and hearing grossly normal bilaterally HEAD & SCALP: normocephalic and atraumatic Resp: COMMON NORMALS: normal respiratory effort, No retractions, No use of accessory muscles and clear to auscultation bilaterally AUSCULTATION: clear to auscultation bilaterally Cardio: COMMON NORMALS: regular rate, regular rhythm and No murmurs present (Cardio) RATE: regular rate RHYTHM: regular rhythm GI: COMMON NORMALS: Soft to palpation and No hepatosplenomegaly present A USCULTATION: Yes normoactive bowel sounds PALPATION: Yes Soft to palpation, No Tenderness to palpation present (GI), No Guarding due to palpation present (GI) and Yes No hepatosplenomegaly present Extremity: COMMON NORMALS: normal to inspection, capillary refill normal, no clubbing, cyanosis or edema, no calf tenderness and no pedal edema Neuro: SENSORIUM/ORIENTATION: Yes oriented to person, Yes oriented to place and Yes oriented to time Skin: COMMON NORMALS: no rashes or lesions noted GENERAL SKIN EXAM: no rashes or lesions noted Course 2 Vital Signs: Vital signs: Vital Signs Temperature 97.6 F 07/02/24 12:01 Pulse Rate 75 07/02/24 15:40 Respiratory Rate 22 H 07/02/24 15:30 Blood Pressure 139/79 07/02/24 15:40 Pulse Oximetry 97 07/02/24 15:30 Oxygen Delivery Me thod Room Air 07/02/24 12:01 MDM - Chest Pain Medical Decision Making Patient continues mild chest comfortable placed on heparin weight-based protocol also apply half inch of Nitropaste. He has a known history of heart disease last month he had a stress test that was reported as negative despite this he continues to have chest pain at times while at rest. Discussed with cardiology as well as the hospitalist will admit and have cardiology consult. Discussed with patient. Medical Records I reviewed the patient's medical records. Lab Data I reviewed the patient's lab results. 07/02/24 12:10 07/02/24 12:10 Laboratory Results WBC 11.16 10^3/uL (3.29-11.43) 07/02/24 12:10 RBC 3.49 10^6/uL (3.85-5.65) L 07/02/24 12:10 Hgb 11.40 g/dL (11.27-16.99) 07/02/24 12:10 Hct 35.1 % (37-53) L 07/02/24 12:10 MCV 100.6 fl (82-101) 07/02/24 12:10 MCH 32.7 pg (27-33) 07/02/24 12:10 MCHC 32.5 g/dL (30-55) 07/02/24 12:10 RDW 13.3 % (12.1-15.1) 07/02/24 12:10 Plt Count 192 10^3/cmm (157-399) 07/02/24 12:10 MPV 9.4 fL (7.4-10.4) 07/02/24 12:10 Neut % (Auto) 82.9 % 07/02/24 12:10 Lymph % (Auto) 7.9 % 07/02/24 12:10 Sutter % (Auto) 7.3 % 07/02/24 12:10 Eos % (Auto) 1.2 % 07/02/24 12:10 Baso % (Auto) 0.3 % 07/02/24 12:10 Neut # (Auto) 9.26 10^3/uL (1.8-7.7) H 07/02/24 12:10 Lymph # (Auto) 0.9 10^3/uL (0.8-4.8) 07/02/24 12:10 Sutter # (Auto) 0.8 10^3/uL (0.2-0.9) 07/02/24 12:10 Eos # (Auto) 0.1 10^3/uL (0.0-0.8) 07/02/24 12:10 Baso # (Auto) 0.0 10^3/uL (0.0-0.1) 07/02/24 12:10 Nucleated RBC % (auto) 0 % 07/02/24 12:10 Nucleated RBCs # 0.0 /100WBC 07/02/24 12:10 PT 14.20 SECONDS (12.1-14.9) 07/02/24 12:10 INR 1.07 (0.8-1.2) 07/02/24 12:10 Sodium 135 mmol/L (136-145) L 07/02/24 12:10 Potassium 4.5 mmol/L (3.5-5.1) 07/02/24 12:10 Chloride 101 mmol/L (98-107) 07/02/24 12:10 Carbon Dioxide 28 mmol/L (22-29) 07/02/24 12:10 Anion Gap 10.5 (5-19) 07/02/24 12:10 BUN 15 mg/dL (8-23) 07/02/24 12:10 Creatinine 1.1 mg/dL (0.7-1.2) 07/02/24 12:10 GFR Calculation 67.4 mL/min (90-130) L 07/02/24 12:10 Glucose 123 mg/dL (65-115) H 07/02/24 12:10 Calculated Osmolality 282 mOsm/kg (285-295) L 07/02/24 12:10 Calcium 7.9 mg/dL (8.5-10.5) L 07/02/24 12:10 Total Bilirubin 0.5 mg/dL (0.15-1.2) 07/02/24 12:10 AST 16 U/L (0-40) 07/02/24 12:10 ALT 13 U/L (0-41) 07/02/24 12:10 Alkaline Phosphatase 68 U/L (40-130) 07/02/24 12:10 Troponin T Baseline 23 ng/L (0-15) H 07/02/24 12:10 Troponin T 120 Minute 20.43 ng/L (0-15) H 07/02/24 14:16 Delta Troponin T -2.57 ABS# (0-10) L 07/02/24 14:16 Total Protein 5.0 g/dL (6.6-8.7) L 07/02/24 12:10 Albumin 3.0 g/dL (3.5-5.2) L 07/02/24 12:10 Globulin 2.0 g/dL (1.3-4.6) 07/02/24 12:10 All radiology interpretation(s) finalized by discharge Clincial Decision Support The following clinical decision support tools were used to aid in care of the patient HEART Score -> History: Moderately Suspicious, EKG: Normal, Age: 45-64 yrs, Risk Factors: >/=3 Risk Factors, Troponin: Baseline Trop 16-45 ng/L. Resulting HEART Score: 5. Discharge Plan Discharge Patient Disposition: Admitted As Inpatient Admit Provider: Jerad Salas Clinical Impression: Unstable angina pectoris, CAD (coronary artery disease) Condition: Stable Coding Level of Care Code ED Fruit Receiver for Chg Juma
[2024-07-02 14:44] LABS: Troponin 5 2HR 20.43 ng/L (0-15); Troponin 5 2HR Delta -2.57 ABS# (0-10)
[2024-07-02] MEDS: heparin drip 25,000 UNIT/500 ML PREMIX 13.46 UNIT IV (15:37)
[2024-07-02] MEDS: nitroglycerin 1 gm/inch oint Pkt 0.5 INCH TOPICAL (15:40)
[2024-07-02] MEDS: heparin 5,000 unit/mL INJ 1 mL IVP (15:40)
--- NOTE | 2024-07-02 15:44 | PM.HP ---
Providers/Chief Complaint Admitting Physician: Jerad Salas MD Primary Care Provider: Sher Petersen MD Chief Complaint: Chest Pain History of Present Illness Zaire Lujan is a 64 year old male with a past medical history of CAD status post CABG, history of severe mitral regurgitation status post mitral valve repair, history of mild to moderate aortic regurg, history of left renal carcinoma status post nephrectomy, smoker, ischemic cardiomyopathy, systolic CHF, who presents to [facility] for chest pain. Patient tells me that recently he had a dental extraction, and due to deep cavity size and severity of the infection, they were only able to do a staged procedure, he is taking antibiotics, but there is plans on further dental surgery in the near future. He tells me that today he started to develop chest pain, radiating to the neck, radiating down his shoulder, associated with shortness of breath, no nausea, no vomiting, no diaphoresis, he recently had a stress test added back in April he was complaining of chest pain and shortness of breath with exertion, currently continues to have chest discomfort, although reduced, alert oriented x 3, following all commands Review of Systems Const: Denies: fever(s) Card: Reports: chest pain Resp: Reports: dyspnea GI: Denies: abdominal pain Neuro: Denies: headache(s) Medications/Allergies Home Medications Medication Instructions Recorded Confirmed Last Taken Type nitroglycerin 0.4 mg sublingual 0.4 mg sublingual Q5M PRN chest 08/27/23 07/02/24 Unknown Rx tablet pain #30 tabs valsartan 160 mg tablet 160 mg PO BID #180 tabs 08/27/23 07/02/24 07/02/24 Rx acetaminophen 300 mg-codeine 30 mg 1 tab PO Q4H 07/02/24 07/02/24 07/01/24 History tablet amoxicillin 500 mg capsule 500 mg PO ONCE 07/02/24 07/02/24 Unknown History amoxicillin 875 mg-potassium 1 tab PO BID 07/02/24 07/02/24 Unknown History clavulanate 125 mg tablet carvedilol 25 mg tablet 25 mg PO BID 07/02/24 07/02/24 07/01/24 History Allergies Allergy/AdvReac Type Severity Reaction Status Date / Time nortriptyline Allergy Severe ADR-Halluci Verified 07/02/24 12:09 nating fluoxetine [From Prozac] Allergy Intermediate rash Verified 07/02/24 12:09 aspirin Allergy Mild headache Verified 07/02/24 12:09 codeine Allergy Mild gi upset Verified 07/02/24 12:09 hydromorphone [From Dilaudid] Allergy Mild itching Verified 07/02/24 12:09 PFSH Acute PFSH: Medical History Psychiatric care Acute chest wall pain Allergic rhinitis Single kidney Lt Renal CC, nephrectomy FHx: skin cancer Irritable bowel syndrome with diarrhea Hx of Bearden's palsy Anxiety Boxer's metacarpal fracture, neck, closed Dyslipidemia CAD (coronary artery disease) CABG x 2-3 vessel Aortic regurgitation Tricuspid regurgitation Mitral regurgitation CHF (NYHA class III, ACC/AHA stage C) 35% LVEF 01/2022 CVA (cerebral vascular accident) GERD (gastroesophageal reflux disease) Hypothyroid Hypertension Surgical History History of nephrectomy, left Renal cell carcinoma of left kidney S/P mitral valve repair History of open heart surgery History of neck surgery Family History Grandfather CAD (coronary artery disease) Denies family history of Diabetes Stroke Social History Smoking and tobacco/nicotine status: unknown if used tobacco/nicotine Alcohol intake: current Alcohol intake frequency: holidays/special occasions only Substance/Drug Use: current Other substance/drug use details: occassionlly Vitals/I&O/Wt Last Vital Signs Temp 97.6 F 07/02/24 12:01 Pulse 75 07/02/24 15:40 Resp 22 H 07/02/24 15:30 BP 139/79 07/02/24 15:40 Pulse Ox 97 07/02/24 15:30 O2 Del Method Room Air 07/02/24 12:01 Weight last 48 hrs Weight 48.081 kg Physical Exam Const: COMMON NORMALS: no acute distress and patient oriented x3 HENMT: OTHER: Oral examination, lower row of teeth, second and third lateral incisors, with evidence of periodontitis Eye: COMMON NORMALS: Equal, round and reactive pupils present and EOMs intact bilaterally Resp: COMMON NORMALS: normal respiratory effort, No retractions, No use of accessory muscles and clear to auscultation bilaterally AUSCULTATION: clear to auscultation bilaterally Cardio: COMMON NORMALS: no JVD, regular rate, regular rhythm, S1 normal heart sound present and S2 normal heart sound present RATE: regular rate RHYTHM: regular rhythm HEART SOUNDS: S1 normal heart sound present and S2 normal heart sound present GI: COMMON NORMALS: Normal to inspection, nondistended, normoactive bowel sounds present, Soft to palpation and non-tender Extremity: COMMON NORMALS: no calf tenderness and no pedal edema Neuro: COMMON NORMALS: patient oriented x3, CN's II-XII intact bilaterally and moves all extremities Psych: COMMON NORMALS: mental status grossly normal Data 07/02/24 12:10 07/02/24 12:10 A&P Assessment and plan (1) Unstable angina pectoris: (2) CAD (coronary artery disease): Qualifiers: Coronary Disease-Associated Artery/Lesion type: yuhaaviatam artery [place] vs. transplanted heart: yuhaaviatam heart Associated angina: without angina Qualified Code(s): I25.10 - Atherosclerotic heart disease of yuhaaviatam coronary artery without angina pectoris (3) CHF (NYHA class III, ACC/AHA stage C): (4) Moderate mitral valve regurgitation: Plan Unstable angina -Prior cath procedure in 2020 Conclusions 1. There is severe multivessel coronary artery disease including [place] of RCA, severe OM1 disease, severe proximal LAD stenosis.. 2. 3+ mitral regurgitation. 3. 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 4. Mild left ventricular systolic dysfunction. Ejection fraction of 40%. Recommendations * Given patient's mitral regurgitation and severe multivessel coronary artery disease, surgical evaluation for mitral valve repair and CABG. * Recommend diuresis. * Outpatient cardiology follow-up. -Status post CABG -He underwent coronary artery bypass grafting x2 using skeletonized NEVAREZ to LAD and left radial to obtuse marginal ? stress test 05/2024 IMPRESSIONS Large area of fixed perfusion defect noted in the basal to distal inferior and basal to mid inferolateral wall without reversibility suggestive of old myocardial infarction versus scarring, no significant ischemia noted. This study is negative for ischemia with evidence of old myocardial infarction. EKG segment will be documented separately. Cardiac echo 05/2024 CONCLUSIONS LV systolic function is only reduced with EF of 35 to 40%. Above-mentioned regional wall motion abnormalities. Mitral annuloplasty ring seen. Moderate to severe mitral regurgitation Mild to moderate aortic regurgitation Mild to moderate tricuspid regurgitation Compared to prior echocardiogram from 2021, mitral regurgitation has worsened. ? Plan ? Monitor cardiac stepdown unit ? Wildlife Science Professor been consulted ? Start heparin drip ? As patient continues to have chest pain complaints stop nitroglycerin patch, switch to nitroglycerin drip ? Aspirin, statin ? Will await cardiology's recommendation possible cardiac catheterization Moderate to severe mitral regurgitation seen on echo mitral valve repair with 28 mm physioflex band on [address] Amos at [facility]. Recent dental surgery, continue Augmentin ? Given severe mitral valve regurg will do inflammatory markers, blood cultures Attestations Medical Necessity Statement*: Patient requires hospitalization, inpatient, greater than 2 midnights, for unstable angina Diagnoses Unstable angina pectoris I20.0 Coronary artery disease involving yuhaaviatam coronary artery of yuhaaviatam heart without angina pectoris I25.10 Coronary Disease-Associated Artery/Lesion type: yuhaaviatam artery [place] vs. transplanted heart: yuhaaviatam heart Associated angina: without angina CHF (NYHA class III, ACC/AHA stage C) I50.9 Moderate mitral valve regurgitation I34.0
[2024-07-02 16:14] LABS: INR 1.07 (0.8-1.2)
[2024-07-02 16:27] LABS: NT Pro B Type Natriuretic Pept 2102 pg/mL (0-125)
[2024-07-02 16:38] LABS: Erythrocyte Sedimentation Rate 6 mm/hr (0-10)
[2024-07-02 17:12] LABS: C Reactive Protein 40.4 mg/L (0.0-4.9)
[2024-07-02] MEDS: pantoprazole 40 mg SDV IVP (18:18)
[2024-07-02] MEDS: amoxicillin-clav 875-125 mg Tablet 1 TAB PO (18:19)
[2024-07-02] MEDS: losartan 50 mg Tablet PO (18:19)
[2024-07-02] MEDS: carvedilol 25 mg Tablet PO (18:19)
[2024-07-02] MEDS: nitroglycerin drip 50 MG/250 ML PREMIX IV (18:19)
--- NOTE | 2024-07-02 18:19 | ECG_ITS ---
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 Measurements Intervals [place] Rate: 89 P: 89 [place]: 167 QRS: 101 QRSD: 101 T: 83 QT: 364 QTc: 445 Interpretive Statements SINUS RHYTHM POSSIBLE LEFT ATRIAL ENLARGEMENT [-0.1mV P-WAVE IN V1/V2] RIGHT AXIS DEVIATION [QRS AXIS > 100] NONSPECIFIC T-WAVE ABNORMALITY Compared to ECG 07/02/2024 13:56:22 T-wave abnormality now present Myocardial infarct finding no longer present Electronically Signed On 07-02-2024 22:42:44 CDT by Aleida Combs M.D. [email or web address]
--- NOTE | 2024-07-02 18:20 | PM.CONSULT ---
Providers/Reason For Consult Consulting Physician/Specialty*: MCKENZIE Combs MD/cardiology Reason for Consult*: Patient with the chest pain, history of atherosclerotic heart diseas and mitral valve surgery Requesting Physician: Dr. Salas Attending Physician: Jerad Salas MD Primary Care Provider: Sher Petersen MD History of Present Illness History of Present Illness Zaire Lujan is a 64 year old male The patient is a 64-year-old male presenting with chest pain. He woke with left upper chest pain radiating into the left shoulder, left side of the neck, and back. The pain intensity was rated 6/10 and persisted for two hours. Such discomfort initiated his visit to the emergency room. Despite receiving sublingual nitroglycerin, the pain was unrelieved. His systolic blood pressure dropped into the 70s at home during the pain episode, though it normalized in the emergency room. He has a known history of atherosclerotic heart disease and underwent coronary artery bypass surgery in June 2021, with a left internal mammary artery graft to the left anterior descending artery and a left radial artery graft to the obtuse marginal artery. Simultaneously, a mitral valve repair was completed. He has been otherwise asymptomatic and compliant with medications until the current episode. A recent myocardial perfusion imaging conducted in May showed a moderately large area of fixed defect with no significant reversible defect. He has a history of cervical disc issues and awaits an MRI of the spine for further evaluation. The patient is also recognized to have hypertension and dyslipidemia. His social history is notable for a history of smoking, having quit 70 years ago but resuming last year at a rate of one pack per day, and previous heavy alcohol use, which he discontinued 20 years ago. Review of Systems Narrative: CONSTITUTIONAL: No fever or chills. EYES: No blurring of vision or other visual disturbances lately. ENT: No hoarseness of voice, auditory disturbances or sore throat. CARDIOVASCULAR: As mentioned above. RESPIRATORY: No significant cough. GASTROINTESTINAL: No hematemesis or melena. GENITOURINARY: No dysuria or hematuria. INTEGUMENTARY: No skin rashes or history of skin cancer. NEURO: No transient ischemic attacks or amaurosis. PSYCHIATRIC: No history of psychosis or major depression. HEMATOLOGIC: No bleeding disorders or significant anemia. ENDOCRINE: No history of polyuria or polydipsia. MUSCULOSKELETAL: Patient has chronic cervical pain and is undergoing workup. ALLERGY/IMMUNOLOGY: As mentioned above. Medications/Allergies Home Medications Medication Instructions Recorded Confirmed Last Taken Type nitroglycerin 0.4 mg sublingual 0.4 mg sublingual Q5M PRN chest 08/27/23 07/02/24 Unknown Rx tablet pain #30 tabs valsartan 160 mg tablet 160 mg PO BID #180 tabs 08/27/23 07/02/24 07/02/24 Rx acetaminophen 300 mg-codeine 30 mg 1 tab PO Q4H 07/02/24 07/02/24 07/01/24 History tablet amoxicillin 500 mg capsule 500 mg PO ONCE 07/02/24 07/02/24 Unknown History amoxicillin 875 mg-potassium 1 tab PO BID 07/02/24 07/02/24 Unknown History clavulanate 125 mg tablet carvedilol 25 mg tablet 25 mg PO BID 07/02/24 07/02/24 07/01/24 History Allergies Allergy/AdvReac Type Severity Reaction Status Date / Time nortriptyline Allergy Severe ADR-Halluci Verified 07/02/24 12:09 nating fluoxetine [From Prozac] Allergy Intermediate rash Verified 07/02/24 12:09 aspirin Allergy Mild headache Verified 07/02/24 12:09 codeine Allergy Mild gi upset Verified 07/02/24 12:09 hydromorphone [From Dilaudid] Allergy Mild itching Verified 07/02/24 12:09 Current Medications Generic Name Dose Route Start Last Admin Trade Name Freq PRN Reason Stop Dose Admin Amoxicillin/Clavulanate Potassium 1 tab 07/02/24 18:00 07/02/24 18:19 Amoxicillin-Clav 875-125 Mg Tablet PO 1 tab BID JOCE Administration Protocol Carvedilol 25 mg 07/02/24 18:00 07/02/24 18:19 Carvedilol 25 Mg Tablet PO 25 mg BID JOCE Administration Heparin Sodium/Sodium Chloride 25,000 unit in 500 mls @ 0 mls/hr 07/02/24 15:15 07/02/24 15:37 Heparin Drip IV 14 unit/kg/hr CONT JOCE 13.46 mls/hr Administration Protocol Per Protocol Nitroglycerin/Dextrose 50 mg in 250 mls @ 0 mls/hr 07/02/24 17:19 07/02/24 18:19 Nitroglycerin Drip IV 10 mcg/min .Q0M JOCE 3 mls/hr Administration Protocol Per Protocol Losartan Potassium 50 mg 07/02/24 18:00 07/02/24 18:19 Losartan 50 Mg Tablet PO 50 mg BID JOCE Administration Pantoprazole Sodium 40 mg 07/02/24 17:45 07/02/24 18:18 Pantoprazole 40 Mg Sdv IVP 40 mg DAILY JOCE Administration PFSH Acute PFSH: Medical History Psychiatric care Acute chest wall pain Allergic rhinitis Single kidney Lt Renal CC, nephrectomy FHx: skin cancer Irritable bowel syndrome with diarrhea Hx of Bearden's palsy Anxiety Boxer's metacarpal fracture, neck, closed Dyslipidemia CAD (coronary artery disease) CABG x 2-3 vessel Aortic regurgitation Tricuspid regurgitation Mitral regurgitation CHF (NYHA class III, ACC/AHA stage C) 35% LVEF 01/2022 CVA (cerebral vascular accident) GERD (gastroesophageal reflux disease) Hypothyroid Hypertension Surgical History History of nephrectomy, left Renal cell carcinoma of left kidney S/P mitral valve repair History of open heart surgery History of neck surgery Family History Grandfather CAD (coronary artery disease) Denies family history of Diabetes Stroke Social History Smoking and tobacco/nicotine status: unknown if used tobacco/nicotine Alcohol intake: current Alcohol intake frequency: holidays/special occasions only Substance/Drug Use: current Other substance/drug use details: occassionlly Vitals/I&O/Wt Last Vital Signs Temp 97.6 F 07/02/24 12:01 Pulse 71 07/02/24 17:30 Resp 22 H 07/02/24 17:30 BP 144/81 07/02/24 18:19 Pulse Ox 97 07/02/24 17:30 O2 Del Method Room Air 07/02/24 17:20 Weight last 48 hrs Weight 125 lb Weight 106 lb Physical Exam Narrative: GENERAL: The patient is alert and oriented times three. Not in any acute distress. HEENT: No significant pallor, icterus or lymphadenopathy.Oral cavity: There are no mucous membrane lesions. NECK: Trachea appears to be central. No masses noted. No JVD or thyromegaly appreciated. RESPIRATORY: Chest is symmetrical. No intercostals muscle retraction or any accessory muscle activation. There is no chest wall tenderness. Breath sounds are heard bilaterally. No rales or rhonchi heard. No evidence of any consolidation. BREASTS: Deferred. HEART: The heart sounds are normal. No S3 or S4. Systolic murmur grade 3/6 the mitral area. No diastolic murmurs.. No pericardial rub ABDOMEN: No vessel pulsations or distention. No tenderness. No organomegaly appreciated. Bowel sounds are normally heard. : Deferred. RECTAL: Deferred. LYMPHATIC: No lymphadenopathy noted in the neck. EXTREMITIES: No edema or cyanosis. No clubbing. MUSCULOSKELETAL: No acute joint deformities or swelling SKIN: There are no significant rashes or ecchymosis NEUROPSYCHIATRIC: The patient is alert and oriented x3. Appears to be in a good mood. No tremors or rigidity noted. Data 07/02/24 12:10 07/02/24 12:10 Other Labs: Laboratory Last Values WBC 11.16 10^3/uL (3.29-11.43) 07/02/24 12:10 RBC 3.49 10^6/uL (3.85-5.65) L 07/02/24 12:10 Hgb 11.40 g/dL (11.27-16.99) 07/02/24 12:10 Hct 35.1 % (37-53) L 07/02/24 12:10 MCV 100.6 fl (82-101) 07/02/24 12:10 MCH 32.7 pg (27-33) 07/02/24 12:10 MCHC 32.5 g/dL (30-55) 07/02/24 12:10 RDW 13.3 % (12.1-15.1) 07/02/24 12:10 Plt Count 192 10^3/cmm (157-399) 07/02/24 12:10 MPV 9.4 fL (7.4-10.4) 07/02/24 12:10 Neut % (Auto) 82.9 % 07/02/24 12:10 Lymph % (Auto) 7.9 % 07/02/24 12:10 [place] % (Auto) 7.3 % 07/02/24 12:10 Eos % (Auto) 1.2 % 07/02/24 12:10 Baso % (Auto) 0.3 % 07/02/24 12:10 Neut # (Auto) 9.26 10^3/uL (1.8-7.7) H 07/02/24 12:10 Lymph # (Auto) 0.9 10^3/uL (0.8-4.8) 07/02/24 12:10 [place] # (Auto) 0.8 10^3/uL (0.2-0.9) 07/02/24 12:10 Eos # (Auto) 0.1 10^3/uL (0.0-0.8) 07/02/24 12:10 Baso # (Auto) 0.0 10^3/uL (0.0-0.1) 07/02/24 12:10 Nucleated RBC % (auto) 0 % 07/02/24 12:10 Nucleated RBCs # 0.0 /100WBC 07/02/24 12:10 ESR 6 mm/hr (0-10) 07/02/24 12:10 PT 14.20 SECONDS (12.1-14.9) 07/02/24 12:10 INR 1.07 (0.8-1.2) 07/02/24 12:10 Sodium 135 mmol/L (136-145) L 07/02/24 12:10 Potassium 4.5 mmol/L (3.5-5.1) 07/02/24 12:10 Chloride 101 mmol/L (98-107) 07/02/24 12:10 Carbon Dioxide 28 mmol/L (22-29) 07/02/24 12:10 Anion Gap 10.5 (5-19) 07/02/24 12:10 BUN 15 mg/dL (8-23) 07/02/24 12:10 Creatinine 1.1 mg/dL (0.7-1.2) 07/02/24 12:10 GFR Calculation 67.4 mL/min (90-130) L 07/02/24 12:10 Glucose 123 mg/dL (65-115) H 07/02/24 12:10 Calculated Osmolality 282 mOsm/kg (285-295) L 07/02/24 12:10 Calcium 7.9 mg/dL (8.5-10.5) L 07/02/24 12:10 Total Bilirubin 0.5 mg/dL (0.15-1.2) 07/02/24 12:10 AST 16 U/L (0-40) 07/02/24 12:10 ALT 13 U/L (0-41) 07/02/24 12:10 Alkaline Phosphatase 68 U/L (40-130) 07/02/24 12:10 Troponin T Baseline 23 ng/L (0-15) H 07/02/24 12:10 Troponin T 120 Minute 20.43 ng/L (0-15) H 07/02/24 14:16 Delta Troponin T -2.57 ABS# (0-10) L 07/02/24 14:16 C-Reactive Protein 40.4 mg/L (0.0-4.9) H 07/02/24 14:20 NT-Pro-B Natriuret Pep 2102 pg/mL (0-125) H 07/02/24 12:10 Total Protein 5.0 g/dL (6.6-8.7) L 07/02/24 12:10 Albumin 3.0 g/dL (3.5-5.2) L 07/02/24 12:10 Globulin 2.0 g/dL (1.3-4.6) 07/02/24 12:10 Procalcitonin 0.10 ng/mL (0-0.5) 07/02/24 14:20 Other data: Echocardiogram on 05/23/2024 LV systolic function is only reduced with EF of 35 to 40%. Above-mentioned regional wall motion abnormalities. Mitral annuloplasty ring seen. Moderate to severe mitral regurgitation Mild to moderate aortic regurgitation Mild to moderate tricuspid regurgitation Compared to prior echocardiogram from 2021, mitral regurgitation has worsened. The LV ejection fraction has improved from 30% to 35 to 40% Myocardial perfusion imaging on 05/22/2024 Large area of fixed perfusion defect noted in the basal to distal inferior and basal to mid inferolateral wall without reversibility suggestive of old myocardial infarction versus scarring, no significant ischemia noted. This study is negative for ischemia with evidence of old myocardial infarction. EKG segment will be documented separately. A&P Assessment and plan (1) Chest pain: The patient's chest pain , most likely is musculoskeletal. He continues to have pain which gets worse with neck movements. The EKG is unremarkable. No acute ST-T changes. No evidence of any medical injury based on the blood test. He apparently had unremarkable Myocardial perfusion imaging, 5 weeks ago. Serial cardiac enzymes might be appropriate to rule out myocardial infarction or future medically if suspicion may be low. Qualifiers: Chest pain type: unspecified Qualified Code(s): R07.9 - Chest pain, unspecified (2) Hypertension: Currently the blood pressure is of stage II. The antihypertensive medications need to be optimized. Qualifiers: Hypertension type: essential hypertension Qualified Code(s): I10 - Essential (primary) hypertension (3) Dyslipidemia: May continue on the current medications. (4) Moderate mitral valve regurgitation: (5) Atherosclerotic heart disease of [place] coronary artery with other forms of angina pectoris: Patient had two-vessel coronary bypass surgery in 2020. He had the radial arterial graft to the OM and NEVAREZ to the LAD. Chances of him developing graft occlusion cannot be excluded but my clinical suspicion may be low. Plan Patient may require investigation for the cervical spine problems. Once a myocardial infarction is ruled out, I may hold off on any further investigation at this point. Patient's overall cardiovascular status seems to be stable. Thank for the opportunity to evaluate this patient and make these recommendations Consult Attestations Medical Necessity Statement: Deferred to the primary Coding Level of Care Code 60939 Diagnoses Chest pain R07.9 Chest pain type: unspecified Essential hypertension I10 Hypertension type: essential hypertension Dyslipidemia E78.5 Moderate mitral valve regurgitation I34.0 Atherosclerotic heart disease of [place] coronary artery with other forms of angina pectoris I25.118
[2024-07-02 18:22] LABS: Chol HDL Ratio 3.62 mg/dL (1.0-5.00); Cholesterol 123 mg/dL (0-200); HDL Cholesterol 34 mg/dL (60-100); LDL Cholesterol Calculated 73 mg/dL (50-129); LDL HDL Ratio 2.15 RATIO (0.00-3.22); Triglycerides 81 mg/dL (0-150)
[2024-07-02 19:50] LABS: Troponin 5 6HR 19.71 ng/L (0-15)
[2024-07-02 19:51] LABS: Troponin 5 6HR Delta -3.29 ng/L (0-12)
[2024-07-02 20:26] LABS: Estmated Average Glucose 100; Hemoglobin A1C 5.1 % (4.0-6.0)
[2024-07-02] MEDS: morphine 4 mg/mL SDV 1 mL 2 MG IVP (21:28)
[2024-07-02] MEDS: HYDROmorphone 1 mg/mL INJ 1 mL IVP (23:11)
[2024-07-02 23:13] LABS: Bilirubin Urine Negative (Negative); Blood Urine Negative (Negative); Glucose Urine UA Trace (Normal); Ketones Urine Negative (Negative); Leukocyte Esterase Urine Negative (Negative); Nitrate Urine Negative (Negative); Protein Urine Trace (Negative); Specific Gravity, Urine 1.022 (1.005-1.030); Urine Appearance Clear (CLEAR); Urine Color Yellow (Yellow); pH Urine 6.5 (5-7)
[2024-07-02 23:16] LABS: Partial Thromboplastin Time 52.8 SECONDS (23.9-36.7)
[2024-07-02 23:18] LABS: Add Urine Microscopic? YES; Bacteria Urine None Seen /hpf; Hyaline Casts Urine 0-4 /lpf; RBC Urine 0-2 /hpf (0-2); Squamous Epithelial Cell Urine 0-5 /hpf (0-5); WBC Urine 0-5 /hpf (0-5)
[2024-07-03] VITALS (9 sets, daily range): BP systolic 114–157; BP diastolic 56–87; PULSE 66–81; RESP 10–20; TEMP 36.6–37.1; O2SAT 96–97
[2024-07-03] MEDS: morphine 4 mg/mL SDV 1 mL 2 MG IVP (04:50)
[2024-07-03] MEDS: pantoprazole 40 mg SDV IVP (08:07)
[2024-07-03] MEDS: losartan 50 mg Tablet PO (08:07)
[2024-07-03] MEDS: carvedilol 25 mg Tablet PO (08:07)
[2024-07-03] MEDS: amoxicillin-clav 875-125 mg Tablet 1 TAB PO (08:07)
[2024-07-03] MEDS: aspirin 81 mg EC Tablet PO (08:08)
--- NOTE | 2024-07-03 08:18 | CT_ITS ---
WS: [id number] CT CERVICAL SPINE TECHNIQUE: Noncontrast CT of the cervical spine with coronal and sagittal reformatted images. CLINICAL INFORMATION: neck pain COMPARISON: 06/08/2024 DLP: 177.[address] scans at [facility] use at least one of these dose optimization techniques: automated e xposure control; mA and/or kV adjustment per patient size (includes targeted exams where dose is matc hed to clinical indication); or iterative reconstruction. FINDINGS: Straightening of the normal cervical lordosis. Postoperative changes C5-6 with ACDF and interbody fus ion. Slight anterolisthesis C3 on C4 and C4 on C5. Disc osteophyte complexes worse at C3-C4 and C4-C5 . Small disc osteophyte protrusion at C6-C7. C2-C3: Mild disc bulge and osteophytic ridging. Uncovertebral joint hypertrophy. Mild LEFT greater th an RIGHT foraminal narrowing. Mild facet arthropathy. C3-C4: Disc osteophyte complex with mild central canal stenosis. Moderate LEFT facet arthropathy. Sev ere LEFT bony foraminal narrowing. C4-C5: Disc osteophyte complex with mild central canal stenosis. Moderate facet arthropathy. Severe R IGHT and mild LEFT foraminal narrowing. C5-C6: Postoperative changes ACDF. Mild central canal stenosis. Moderate facet arthropathy. Severe bi lateral foraminal narrowing LEFT greater than RIGHT. C6-C7: Osteophytic ridging. Disc osteophyte complex with mild central canal stenosis. Severe LEFT bon y foraminal narrowing. Moderate facet arthropathy. C7-T1: Mild bilateral foraminal narrowing. Visualized posterior nasopharynx: Normal. Prevertebral soft tissues: Normal. CT/CT cervical spin wo con* [id number] IMPRESSION: 1. Postoperative changes ACDF C5-6. No evidence of hardware loosening. 2. Multilevel moderate to severe bony foraminal narrowing described above. 3. Mild central canal stenosis described above. 4. Slight anterolisthesis C3 on C4 and C4 on C5.
--- NOTE | 2024-07-03 08:19 | PC.NURSE ---
Dr Combs into see patient. No needs for cardiac standpoint. Received orders to stop heparin and nitro drips. RBVO
[2024-07-03 08:27] LABS: Basophils % 0.3 %; Eosinophils # 0.1 10^3/uL (0.0-0.8); Eosinophils % 1.6 %; Hematocrit 37.3 % (37-53); Lymphocytes # 1.4 10^3/uL (0.8-4.8); Mean Corpuscular HGB Conc 32.2 g/dL (30-55); Mean Corpuscular Hemoglobin 31.7 pg (27-33); Mean Corpuscular Volume 98.4 fl (82-101); Mean Platelet Volume 9.8 fL (7.4-10.4); Monocytes # 0.9 10^3/uL (0.2-0.9); Monocytes % 10.1 %; Neutrophils # 6.57 10^3/uL (1.8-7.7); Neutrophils % 72.7 %; Nucleated Red Blood Cells % 0 %; Platelet Count 211 10^3/cmm (157-399); Red Blood Count 3.79 10^6/uL (3.85-5.65); Red Cell Distribution Width 13.2 % (12.1-15.1); White Blood Count 9.03 10^3/uL (3.29-11.43)
[2024-07-03 08:39] LABS: Partial Thromboplastin Time 51.7 SECONDS (23.9-36.7)
[2024-07-03 08:46] LABS: Alanine Aminotransferase 12 U/L (0-41); Albumin Level 3.2 g/dL (3.5-5.2); Alkaline Phosphatase 76 U/L (40-130); Aspartate Amino Transferase 15 U/L (0-40); Blood Urea Nitrogen 15 mg/dL (8-23); Calcium 8.2 mg/dL (8.5-10.5); Carbon Dioxide 27 mmol/L (22-29); Chloride 102 mmol/L (98-107); Creatinine Clr Calc Pharmacy 94.0042; Globulin 2.2 g/dL (1.3-4.6); Glomerular Filtration Rate 113.5 mL/min (90-130); Glucose 118 mg/dL (65-115); Osmolality Calculated 282 mOsm/kg (285-295); Sodium 135 mmol/L (136-145); Total Bilirubin 0.5 mg/dL (0.15-1.2); Total Protein 5.4 g/dL (6.6-8.7)
[2024-07-03 08:47] LABS: Anion Gap 10.7 (5-19); Potassium 4.7 mmol/L (3.5-5.1)
[2024-07-03] MEDS: oxyCODONE-APAP 5-325 mg Tablet 1 TAB PO (08:48)
--- NOTE | 2024-07-03 08:50 | PC.NURSE ---
Informed Dr Salas of patient's chronic neck pain 03/19 this morning. Patient informed this RN that morphine does not last long enough and that he takes percocet at home 5/325mg PO. MD placed order for home medication.
--- NOTE | 2024-07-03 10:39 | PM.PN ---
Subjective Subjective: Patient states he is having a lot of shoulder pain and neck pain on the center of the neck and left shoulder but no chest pain. He states he has had multiple neck surgeries. This is this is further getting investigated with CT. Blood pressure soft today. Medications: Reviewed: Yes Vitals/I&O/Wt Last Vital Signs Temp 98.0 F 07/03/24 07:36 Pulse 79 07/03/24 07:36 Resp 10 L 07/03/24 08:48 BP 148/87 07/03/24 08:07 Pulse Ox 96 07/03/24 08:48 O2 Del Method Room Air 07/03/24 07:36 07/02/24 07/03/24 07/03/24 22:59 06:59 14:59 Intake Total 128.992 / 128.992 622.2 / 622.2 Output Total 150 / 150 300 / 300 Balance -150 / -150 128.992 / -21.008 322.2 / 322.2 Weight last 48 hrs Weight 125 lb Weight 125 lb Weight 106 lb Physical Exam Narrative: GENERAL: The patient is alert and oriented times three. Not in any acute distress. HEENT: No significant pallor, icterus or lymphadenopathy.Oral cavity: There are no mucous membrane lesions. NECK: Trachea appears to be central. No masses noted. No JVD or thyromegaly appreciated. RESPIRATORY: Chest is symmetrical. No intercostals muscle retraction or any accessory muscle activation. There is no chest wall tenderness. Breath sounds are heard bilaterally. No rales or rhonchi heard. No evidence of any consolidation. BREASTS: Deferred. HEART: The heart sounds are normal. No S3 or S4. Systolic murmur grade 3/6 the mitral area. No diastolic murmurs.. No pericardial rub ABDOMEN: No vessel pulsations or distention. No tenderness. No organomegaly appreciated. Bowel sounds are normally heard. : Deferred. RECTAL: Deferred. LYMPHATIC: No lymphadenopathy noted in the neck. EXTREMITIES: No edema or cyanosis. No clubbing. MUSCULOSKELETAL: No acute joint deformities or swelling SKIN: There are no significant rashes or ecchymosis NEUROPSYCHIATRIC: The patient is alert and oriented x3. Appears to be in a good mood. No tremors or rigidity noted. Data 07/03/24 08:20 07/03/24 08:20 Other Labs: Laboratory Last Values WBC 9.03 10^3/uL (3.29-11.43) 07/03/24 08:20 RBC 3.79 10^6/uL (3.85-5.65) L 07/03/24 08:20 Hgb 12.00 g/dL (11.27-16.99) 07/03/24 08:20 Hct 37.3 % (37-53) 07/03/24 08:20 MCV 98.4 fl (82-101) 07/03/24 08:20 MCH 31.7 pg (27-33) 07/03/24 08:20 MCHC 32.2 g/dL (30-55) 07/03/24 08:20 RDW 13.2 % (12.1-15.1) 07/03/24 08:20 Plt Count 211 10^3/cmm (157-399) 07/03/24 08:20 MPV 9.8 fL (7.4-10.4) 07/03/24 08:20 Neut % (Auto) 72.7 % 07/03/24 08:20 Lymph % (Auto) 15.0 % 07/03/24 08:20 [place] % (Auto) 10.1 % 07/03/24 08:20 Eos % (Auto) 1.6 % 07/03/24 08:20 Baso % (Auto) 0.3 % 07/03/24 08:20 Neut # (Auto) 6.57 10^3/uL (1.8-7.7) 07/03/24 08:20 Lymph # (Auto) 1.4 10^3/uL (0.8-4.8) 07/03/24 08:20 [place] # (Auto) 0.9 10^3/uL (0.2-0.9) 07/03/24 08:20 Eos # (Auto) 0.1 10^3/uL (0.0-0.8) 07/03/24 08:20 Baso # (Auto) 0.0 10^3/uL (0.0-0.1) 07/03/24 08:20 Nucleated RBC % (auto) 0 % 07/03/24 08:20 Nucleated RBCs # 0.0 /100WBC 07/03/24 08:20 ESR 6 mm/hr (0-10) 07/02/24 12:10 PT 14.20 SECONDS (12.1-14.9) 07/02/24 12:10 INR 1.07 (0.8-1.2) 07/02/24 12:10 APTT 51.7 SECONDS (23.9-36.7) H 07/03/24 08:20 Sodium 135 mmol/L (136-145) L 07/03/24 08:20 Potassium 4.7 mmol/L (3.5-5.1) 07/03/24 08:20 Chloride 102 mmol/L (98-107) 07/03/24 08:20 Carbon Dioxide 27 mmol/L (22-29) 07/03/24 08:20 Anion Gap 10.7 (5-19) 07/03/24 08:20 BUN 15 mg/dL (8-23) 07/03/24 08:20 Creatinine 0.7 mg/dL (0.7-1.2) 07/03/24 08:20 GFR Calculation 113.5 mL/min (90-130) 07/03/24 08:20 Glucose 118 mg/dL (65-115) H 07/03/24 08:20 Estimat Average Glucose 100 07/02/24 12:10 Hemoglobin A1c 5.1 % (4.0-6.0) 07/02/24 12:10 Calculated Osmolality 282 mOsm/kg (285-295) L 07/03/24 08:20 Calcium 8.2 mg/dL (8.5-10.5) L 07/03/24 08:20 Total Bilirubin 0.5 mg/dL (0.15-1.2) 07/03/24 08:20 AST 15 U/L (0-40) 07/03/24 08:20 ALT 12 U/L (0-41) 07/03/24 08:20 Alkaline Phosphatase 76 U/L (40-130) 07/03/24 08:20 Troponin T Baseline 23 ng/L (0-15) H 07/02/24 12:10 Troponin T 120 Minute 20.43 ng/L (0-15) H 07/02/24 14:16 Delta Troponin T -2.57 ABS# (0-10) L 07/02/24 14:16 Troponin T Hi Sens 6Hr 19.71 ng/L (0-15) H 07/02/24 19:20 Troponin T Hi Sens 6Hr Delta -3.29 ng/L (0-12) L 07/02/24 19:20 C-Reactive Protein 40.4 mg/L (0.0-4.9) H 07/02/24 14:20 NT-Pro-B Natriuret Pep 2102 pg/mL (0-125) H 07/02/24 12:10 Total Protein 5.4 g/dL (6.6-8.7) L 07/03/24 08:20 Albumin 3.2 g/dL (3.5-5.2) L 07/03/24 08:20 Globulin 2.2 g/dL (1.3-4.6) 07/03/24 08:20 Triglycerides 81 mg/dL (0-150) 07/02/24 14:20 Cholesterol 123 mg/dL (0-200) 07/02/24 14:20 LDL Cholesterol, Calc 73 mg/dL (50-129) 07/02/24 14:20 HDL Cholesterol 34 mg/dL (60-100) L 07/02/24 14:20 LDL/HDL Ratio 2.15 RATIO (0.00-3.22) 07/02/24 14:20 Cholesterol/HDL Ratio 3.62 mg/dL (1.0-5.00) 07/02/24 14:20 Procalcitonin 0.10 ng/mL (0-0.5) 07/02/24 14:20 TSH 0.70 uIU/mL (0.27-4.20) 07/02/24 14:20 Urine Color Yellow (Yellow) 07/02/24 22:37 Urine Appearance Clear (CLEAR) 07/02/24 22:37 Urine pH 6.5 (5-7) 07/02/24 22:37 Ur Specific [place] 1.022 (1.005-1.030) 07/02/24 22:37 Urine Protein Trace (Negative) A 07/02/24 22:37 Urine Glucose (UA) Trace (Normal) H 07/02/24 22:37 Urine Ketones Negative (Negative) 07/02/24 22:37 Urine Blood Negative (Negative) 07/02/24 22:37 Urine Nitrate Negative (Negative) 07/02/24 22:37 Urine Bilirubin Negative (Negative) 07/02/24 22:37 Urine Urobilinogen 1.0 mg/dL (Negative) 07/02/24 22:37 Ur Leukocyte Esterase Negative (Negative) 07/02/24 22:37 Urine RBC 0-2 /hpf (0-2) 07/02/24 22:37 Urine WBC 0-5 /hpf (0-5) 07/02/24 22:37 Ur Squamous Epith Cells 0-5 /hpf (0-5) 07/02/24 22:37 Amorphous Sediment Not Reportable 07/02/24 22:37 Urine Bacteria None seen /hpf (NONE) 07/02/24 22:37 Hyaline Casts 0-4 /lpf H 07/02/24 22:37 Micro: Microbiology 07/02/24 19:20 Blood Culture - Preliminary Blood SPECIMEN COLLECTED 07/02/24 19:17 Blood Culture - Preliminary Blood SPECIMEN COLLECTED A&P Assessment and plan (1) Chest pain: The patient states that his left sided chest wall discomfort is gone , most likely was musculoskeletal. He continues to have pain which gets worse with neck movements in the neck and left shoulder with history of neck surgery. Previous EKG unremarkable. No acute ST-T changes. No evidence of any myocardial injury based on the blood test. Previous stress test, a month ago showed no significant ischemia. Qualifiers: Chest pain type: unspecified Qualified Code(s): R07.9 - Chest pain, unspecified (2) Hypertension: Currently the blood pressure is up and down. He is in a lot of pain, which could be contributing to this. Continue pain control and medical optimization. Qualifiers: Hypertension type: essential hypertension Qualified Code(s): I10 - Essential (primary) hypertension (3) Dyslipidemia: May continue on the current medications. (4) Moderate mitral valve regurgitation: Mitral annuloplasty ring seen on previous echo. Patient has Moderate to severe mitral regurgitation. Will need f/u echos in the future. (5) Atherosclerotic heart disease of [place] coronary artery with other forms of angina pectoris: Patient had two-vessel coronary bypass surgery in 2020. He had the radial arterial graft to the OM and NEVAREZ to the LAD. At this time, patient is not having any active chest pain. Plan Patient is having investigation for the cervical spine problems. Patient's overall cardiovascular status seems to be stable. He is without chest pain. Patient may need f/u in the clinic after discharge. At this time, we will sign off of patient care. As always, if in the future our services are needed, we will be available for further consultation. Thank you for allowing us to take care of this gentleman. Attestations Medical Necessity Statement*: Deferred to the primary Coding Level of Care Code 24054 Diagnoses Chest pain R07.9 Chest pain type: unspecified Essential hypertension I10 Hypertension type: essential hypertension Dyslipidemia E78.5 Moderate mitral valve regurgitation I34.0 Atherosclerotic heart disease of [place] coronary artery with other forms of angina pectoris I25.118
--- NOTE | 2024-07-03 11:22 | P.DS_ITS ---
Discharge Providers Date of Admission: 07/02/24 15:34 Date of Discharge: July 03, 2024 Attending Provider at Admission: Jerad Salas MD Attending Provider at Discharge: Jerad Salas MD Primary Care Provider: Sher Petersen MD Diagnoses at Discharge Discharge Diagnosis (1) Chest pain: Status: Inactive Qualifiers: Chest pain type: unspecified Qualified Code(s): R07.9 - Chest pain, unspecified (2) Hypertension: Status: Acute Qualifiers: Hypertension type: essential hypertension Qualified Code(s): I10 - Essential (primary) hypertension (3) Dyslipidemia: Status: Acute (4) Moderate mitral valve regurgitation: Status: Acute (5) Atherosclerotic heart disease of [place] coronary artery with other forms of angina pectoris: Status: Acute Reason for Visit Reason for Visit: Chest Pain Hospital Course Hospital Course Zaire Lujan is a 64 year old male with a past medical history of CAD status post CABG, history of severe mitral regurgitation status post mitral valve repair, history of mild to moderate aortic regurg, history of left renal carcinoma status post nephrectomy, smoker, ischemic cardiomyopathy, systolic CHF, who presents to [facility] for chest pain. Patient tells me that recently he had a dental extraction, and due to deep cavity size and severity of the infection, they were only able to do a staged procedure, he is taking antibiotics, but there is plans on further dental surgery in the near future. He tells me that today he started to develop chest pain, radiating to the neck, radiating down his shoulder, associated with shortness of breath, no nausea, no vomiting, no diaphoresis, he recently had a stress test added back in April he was complaining of chest pain and shortness of breath with exertion, currently continues to have chest discomfort, although reduced, alert oriented x 3, following all commands Patient was admitted to [facility] for chest pain, monitored as inpatient, no significant delta troponin, no recurrent episodes of chest pain, cardiology was consulted, as patient's pain was more neck related and shoulder related, the recommended medical management, patient will be discharged with a close follow-up cardiology as outpatient. He discharged on aspirin, statin, Coreg with a close follow-up with cardiology patient was advised if he has any recurrent chest pain to go to the emergency room Upon repeat questioning with patient, he admits that he was putting in posts into the ground, when he started to develop pain in the neck, pain in the shoulders, he has had a history of neck surgery, he tells me that the origin of his pain is primarily in his neck, radiating down both arms radiating up his neck -CT of the neck CT/CT cervical spin wo con* [id number] IMPRESSION: 1. Postoperative changes ACDF C5-6. No evidence of hardware loosening. 2. Multilevel moderate to severe bony foraminal narrowing described above. 3. Mild central canal stenosis described above. 4. Slight anterolisthesis C3 on C4 and C4 on C5. -This likely patient's pain discomfort is likely related to his acute on chronic neck pain -I have advised him to abstain from physical exertions such as putting in posts which can exacerbate his pain -Rest, ice, -Will discharge him in a short supply of oxycodone to be used sparingly for pain, do not drive or operate heavy machinery or drink while taking medication -Discharged with short supply of tizanidine for muscle spasm, do not drive or operate heavy machinery or drink while take medication do not use with oxycodone -Follow-up with Dr. 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, he had a partial dental extraction not so long ago, but he has to go in for a second round of surgery, he should continue his Augmentin especially as he has a mitral valve ring in place, if he has any fevers, any chills, any pain with mastication he should go to the emergency room Physical Exam Const: COMMON NORMALS: no acute distress and patient oriented x3 Neck/C-Spine: CERVICAL SPINE: Yes pain with cervical ROM, No Cervical spine tenderness, Yes Paracervical muscle tenderness, Yes Paracervical spasm and Yes Trapezius muscle tenderness Resp: COMMON NORMALS: normal respiratory effort, No retractions, No use of accessory muscles and clear to auscultation bilaterally AUSCULTATION: clear to auscultation bilaterally Cardio: COMMON NORMALS: regular rate, regular rhythm, S1 normal heart sound present and S2 normal heart sound present RATE: regular rate RHYTHM: regular rhythm HEART SOUNDS: S1 normal heart sound present and S2 normal heart sound present GI: COMMON NORMALS: Normal to inspection, nondistended, normoactive bowel sounds present and non-tender Extremity: COMMON NORMALS: no pedal edema Neuro: COMMON NORMALS: patient oriented x3 Psych: COMMON NORMALS: mental status grossly normal Discharge Data Studies Completed and Pending Completed Studies During Hospitalization Category Date Time Status CT cervical spin wo con* [id number] Routine Cat Scan 07/03/24 08:18 Completed Pending at discharge Category Date Time Status Blood Culture Stat Lab 07/02/24 19:20 Results Complete Blood Count w/Auto AM LABS Lab 07/04/24 04:00 Ordered Complete Blood Count w/Auto AM LABS Lab 07/05/24 04:00 Ordered Comprehensive Metabolic Panel AM LABS Lab 07/04/24 04:00 Ordered Comprehensive Metabolic Panel AM LABS Lab 07/05/24 04:00 Ordered Radiology Impressions Cervical Spine CT 07/03/24 08:18 IMPRESSION: 1. Postoperative changes ACDF C5-6. No evidence of hardware loosening. 2. Multilevel moderate to severe bony foraminal narrowing described above. 3. Mild central canal stenosis described above. 4. Slight anterolisthesis C3 on C4 and C4 on C5. Laboratory Results WBC 9.03 10^3/uL (3.29-11.43) 07/03/24 08:20 RBC 3.79 10^6/uL (3.85-5.65) L 07/03/24 08:20 Hgb 12.00 g/dL (11.27-16.99) 07/03/24 08:20 Hct 37.3 % (37-53) 07/03/24 08:20 MCV 98.4 fl (82-101) 07/03/24 08:20 MCH 31.7 pg (27-33) 07/03/24 08:20 MCHC 32.2 g/dL (30-55) 07/03/24 08:20 RDW 13.2 % (12.1-15.1) 07/03/24 08:20 Plt Count 211 10^3/cmm (157-399) 07/03/24 08:20 MPV 9.8 fL (7.4-10.4) 07/03/24 08:20 Neut % (Auto) 72.7 % 07/03/24 08:20 Lymph % (Auto) 15.0 % 07/03/24 08:20 Garza % (Auto) 10.1 % 07/03/24 08:20 Eos % (Auto) 1.6 % 07/03/24 08:20 Baso % (Auto) 0.3 % 07/03/24 08:20 Neut # (Auto) 6.57 10^3/uL (1.8-7.7) 07/03/24 08:20 Lymph # (Auto) 1.4 10^3/uL (0.8-4.8) 07/03/24 08:20 Garza # (Auto) 0.9 10^3/uL (0.2-0.9) 07/03/24 08:20 Eos # (Auto) 0.1 10^3/uL (0.0-0.8) 07/03/24 08:20 Baso # (Auto) 0.0 10^3/uL (0.0-0.1) 07/03/24 08:20 Nucleated RBC % (auto) 0 % 07/03/24 08:20 Nucleated RBCs # 0.0 /100WBC 07/03/24 08:20 ESR 6 mm/hr (0-10) 07/02/24 12:10 PT 14.20 SECONDS (12.1-14.9) 07/02/24 12:10 INR 1.07 (0.8-1.2) 07/02/24 12:10 APTT 51.7 SECONDS (23.9-36.7) H 07/03/24 08:20 Sodium 135 mmol/L (136-145) L 07/03/24 08:20 Potassium 4.7 mmol/L (3.5-5.1) 07/03/24 08:20 Chloride 102 mmol/L (98-107) 07/03/24 08:20 Carbon Dioxide 27 mmol/L (22-29) 07/03/24 08:20 Anion Gap 10.7 (5-19) 07/03/24 08:20 BUN 15 mg/dL (8-23) 07/03/24 08:20 Creatinine 0.7 mg/dL (0.7-1.2) 07/03/24 08:20 GFR Calculation 113.5 mL/min (90-130) 07/03/24 08:20 Glucose 118 mg/dL (65-115) H 07/03/24 08:20 Estimat Average Glucose 100 07/02/24 12:10 Hemoglobin A1c 5.1 % (4.0-6.0) 07/02/24 12:10 Calculated Osmolality 282 mOsm/kg (285-295) L 07/03/24 08:20 Calcium 8.2 mg/dL (8.5-10.5) L 07/03/24 08:20 Total Bilirubin 0.5 mg/dL (0.15-1.2) 07/03/24 08:20 AST 15 U/L (0-40) 07/03/24 08:20 ALT 12 U/L (0-41) 07/03/24 08:20 Alkaline Phosphatase 76 U/L (40-130) 07/03/24 08:20 Troponin T Baseline 23 ng/L (0-15) H 07/02/24 12:10 Troponin T 120 Minute 20.43 ng/L (0-15) H 07/02/24 14:16 Delta Troponin T -2.57 ABS# (0-10) L 07/02/24 14:16 Troponin T Hi Sens 6Hr 19.71 ng/L (0-15) H 07/02/24 19:20 Troponin T Hi Sens 6Hr Delta -3.29 ng/L (0-12) L 07/02/24 19:20 C-Reactive Protein 40.4 mg/L (0.0-4.9) H 07/02/24 14:20 NT-Pro-B Natriuret Pep 2102 pg/mL (0-125) H 07/02/24 12:10 Total Protein 5.4 g/dL (6.6-8.7) L 07/03/24 08:20 Albumin 3.2 g/dL (3.5-5.2) L 07/03/24 08:20 Globulin 2.2 g/dL (1.3-4.6) 07/03/24 08:20 Triglycerides 81 mg/dL (0-150) 07/02/24 14:20 Cholesterol 123 mg/dL (0-200) 07/02/24 14:20 LDL Cholesterol, Calc 73 mg/dL (50-129) 07/02/24 14:20 HDL Cholesterol 34 mg/dL (60-100) L 07/02/24 14:20 LDL/HDL Ratio 2.15 RATIO (0.00-3.22) 07/02/24 14:20 Cholesterol/HDL Ratio 3.62 mg/dL (1.0-5.00) 07/02/24 14:20 Procalcitonin 0.10 ng/mL (0-0.5) 07/02/24 14:20 TSH 0.70 uIU/mL (0.27-4.20) 07/02/24 14:20 Urine Color Yellow (Yellow) 07/02/24 22:37 Urine Appearance Clear (CLEAR) 07/02/24 22:37 Urine pH 6.5 (5-7) 07/02/24 22:37 Ur Specific [place] 1.022 (1.005-1.030) 07/02/24 22:37 Urine Protein Trace (Negative) A 07/02/24 22:37 Urine Glucose (UA) Trace (Normal) H 07/02/24 22:37 Urine Ketones Negative (Negative) 07/02/24 22:37 Urine Blood Negative (Negative) 07/02/24 22:37 Urine Nitrate Negative (Negative) 07/02/24 22:37 Urine Bilirubin Negative (Negative) 07/02/24 22:37 Urine Urobilinogen 1.0 mg/dL (Negative) 07/02/24 22:37 Ur Leukocyte Esterase Negative (Negative) 07/02/24 22:37 Urine RBC 0-2 /hpf (0-2) 07/02/24 22:37 Urine WBC 0-5 /hpf (0-5) 07/02/24 22:37 Ur Squamous Epith Cells 0-5 /hpf (0-5) 07/02/24 22:37 Amorphous Sediment Not Reportable 07/02/24 22:37 Urine Bacteria None seen /hpf (NONE) 07/02/24 22:37 Hyaline Casts 0-4 /lpf H 07/02/24 22:37 Vitals Last Vital Signs Temp 98.0 F 07/03/24 07:36 Pulse 79 07/03/24 07:36 Resp 10 L 07/03/24 08:48 BP 148/87 07/03/24 08:07 Pulse Ox 96 07/03/24 08:48 O2 Del Method Room Air 07/03/24 07:36 Discharge Plan Discharge Patient Disposition: Home Condition: Stable Prescriptions: New aspirin 81 mg Tablet,Delayed Release (Dr/Ec) 81 mg PO DAILY 30 Days Qty: 30 0RF tizanidine 4 mg capsule 4 mg PO Q8H PRN (Reason: muscle spasticity) 5 Days Qty: 15 0RF atorvastatin 40 mg tablet 40 mg PO DAILY 30 Days Qty: 30 0RF Continued nitroglycerin 0.4 mg tablet, sublingual 0.4 mg sublingual Q5M PRN (Reason: chest pain) Qty: 30 3RF Rx Instructions: do not exceed 3 doses per episode valsartan 160 mg tablet 160 mg PO BID Qty: 180 3RF carvedilol 25 mg tablet 25 mg PO BID acetaminophen-codeine 300-30 mg tablet 1 tab PO Q4H amoxicillin-pot clavulanate 875-125 mg tablet 1 tab PO BID oxycodone-acetaminophen 5-325 mg Tablet 1 tab PO Q6H PRN (Reason: mod pain) 5 Days Qty: 20 0RF Discontinued amoxicillin 500 mg capsule 500 mg PO ONCE Discharge Orders: Discharge Order (Routine); Ordered 07/03/24 Ordered By: Jerad Salas Referrals: Elvin Galeano DO [Physician] - 07/10/24 10:45 am ( We have notified your physician's clinic of the need for a follow-up appointment to be scheduled. If you have not heard from them within the next 2 business days, please call them directly. ) Sher Petersen MD [Primary Care Provider] - 07/21/24 1:30 pm Aleida Combs MD [Physician] - 07/15/24 3:30 pm Discharge Diet: Cardiac Discharge Activity: Resume usual activity Patient Instructions: Aspirin (By mouth), Atorvastatin (By mouth), Tizanidine (By mouth), Opioid Safety, Pain Management Activity Restrictions/Additional Instructions: - If you have chest pain please go to emergency room -Please take aspirin, statin as prescribed -Follow-up with cardiology -Please use oxycodone sparingly for pain, do not drive or operate heavy machinery or drink while taking medication ? Please do not use oxycodone with the muscle relaxer tizanidine, -Use tizanidine sparingly for muscle pain Discharge Attestations Time Spent in Discharge Care*: greater than 30 min Quality Metrics Clinical Quality Measures [ No reported AMI, CVA or VTE this stay] Coding Level of Care Code 06077 Total time (in minutes) for Discharge: 45 Diagnoses Chest pain R07.9 Chest pain type: unspecified Essential hypertension I10 Hypertension type: essential hypertension Dyslipidemia E78.5 Moderate mitral valve regurgitation I34.0 Atherosclerotic heart disease of [place] coronary artery with other forms of angina pectoris I25.118
--- NOTE | 2024-07-03 14:41 | PC.NURSE ---
Patient discharged to home. Instruction provided regarding follow up appointments and new medications. Patient verbalized complete understanding. Patient taken by wheelchair to private vehicle. Spouse to provide transportation home. New medications transmitted to [facility].
== END 2024-07-03 14:43 | disposition home or self-care (01) | DRG 303 ==
LOC: ER 15:07 → CSU 15:34
PROVIDERS: Internal Medicine Cardiovascular Disease; Admitting Provider Family Medicine; Emergency Provider Family Medicine; PCP Family Medicine Adult Medicine; Visit Provider Family Medicine
DX: I25.119 Atherosclerotic heart disease of native coronary artery with unspecified angina pectoris (principal); I50.20 Unspecified systolic (congestive) heart failure; M54.2 Cervicalgia; M25.512 Pain in left shoulder; M25.511 Pain in right shoulder; I11.0 Hypertensive heart disease with heart failure; E78.5 Hyperlipidemia, unspecified; K05.30 Chronic periodontitis, unspecified; Z95.1 Presence of aortocoronary bypass graft; Z85.528 Personal history of other malignant neoplasm of kidney; Z90.5 Acquired absence of kidney
CPT/HCPCS: 36415; 72125; 80053; 80061; 81001; 83036; 83880; 84145; 84443; 84484; 85025; 85610; 85651; 85730; 86140; 87040; 93005; 96365; 96374; 96375; 97161; 99285; A9270; J1171; J1644; J2270; J2470; J3490

== ENCOUNTER 2024-07-09 09:23 | Outpatient (CLI) | payer MEDICARE, SELFPAY ==
--- NOTE | 2024-07-09 09:30 | MR_ITS ---
WS: [id number] MRI CERVICAL SPINE NONCONTRAST TECHNIQUE: Sagittal T1, T2 and STIR imaging. Axial T2, gradient, and fiesta imaging. CLINICAL INFORMATION: Neck Pain COMPARISON: CT cervical 07/03/2024 FINDINGS: Normal cervical alignment. Stable postoperative changes ACDF C5-6. Slight anterolisthesis C3 on C4. M ild disc bulging C3-C4 C4-C5 and C6-C7. Disc bulging progressed since 2009. C2-C3: Mild facet arthropathy. Mild LEFT and no significant RIGHT foraminal narrowing. Spinal canal i s patent. C3-C4: Slight anterolisthesis. Disc osteophyte complex with endplate ridging. Severe LEFT and mild RI GHT bony foraminal narrowing. Advanced LEFT facet arthropathy. LEFT facet edema compatible with synov itis. C4-C5: Disc osteophyte complex with moderate central canal stenosis and indentation of the cervical c ord. Moderate RIGHT facet arthropathy with facet synovitis. Moderate bilateral bony foraminal narrowi ng. C5-C6: Postoperative changes ACDF. Moderate facet arthropathy. Moderate LEFT greater than RIGHT bony foraminal narrowing. Spinal canal is patent. C6-C7: Disc bulging with slight indentation on the cervical cord and moderate central canal stenosis with indentation on the cervical cord. Severe bilateral bony foraminal narrowing. Moderate facet arth ropathy with uncovertebral joint hypertrophy. C7-T1: Moderate RIGHT C7-T1 bony foraminal narrowing. Spinal canal and LEFT foramen are patent. Asymm etric advanced RIGHT facet arthropathy. Visualized brain stem structures: Normal. Prevertebral soft tissues: Normal. MR/MR cervical spin wo con* [id number] IMPRESSION: 1. Moderate central canal stenosis C4-C5 and C6-C7 worse at C6-7 with indentat ion and flattening of the cervical cord. 2. Prior postoperative changes ACDF C5-6 with small amount of myomalacia in th e cord at this level. 3. Multilevel moderate to severe bony foraminal narrowing worse at LEFT C3-C4, bilateral C4-5, LEFT greater than RIGHT C5-C6, and bilateral C6-7. Moderate RI GHT C7-T1 bony foraminal narrowing. 4. Moderate to advanced facet arthropathy worse at LEFT C3-4, bilateral C4-5 L EFT C6-7 and RIGHT C7-T1. 5. LEFT C3-4 and RIGHT C4-5 facet synovitis.
== END 2024-07-09 09:24 | disposition home or self-care (01) ==
PROVIDERS: PCP Family Medicine Adult Medicine; Visit Provider Orthopaedic Surgery
DX: M99.61 Osseous and subluxation stenosis of intervertebral foramina of cervical region (principal); M43.22 Fusion of spine, cervical region; M50.30 Other cervical disc degeneration, unspecified cervical region; M50.321 Other cervical disc degeneration at C4-C5 level; M50.322 Other cervical disc degeneration at C5-C6 level; M50.323 Other cervical disc degeneration at C6-C7 level
CPT/HCPCS: 72141

== ENCOUNTER → 2024-07-10 10:45 | Outpatient (BNVA) | payer MEDICARE, SELFPAY | PROVIDERS: PCP Family Medicine Adult Medicine; Visit Provider Orthopaedic Surgery | DX: Z09 Encounter for follow-up examination after completed treatment for conditions other than malignant neoplasm (principal); M47.12 Other spondylosis with myelopathy, cervical region | CPT/HCPCS: 36415; 80053; 81001; 85025; 99214 ==

== ENCOUNTER 2024-10-14 16:33 | Outpatient (CLI) | payer MEDICARE, SELFPAY ==
[2024-10-14 18:25] LABS: Anion Gap 13.2 (5-19); Blood Urea Nitrogen 18 mg/dL (8-23); Calcium 9.1 mg/dL (8.5-10.5); Carbon Dioxide 27 mmol/L (22-29); Chloride 107 mmol/L (98-107); Glucose 119 mg/dL (65-115); Osmolality Calculated 299 mOsm/kg (285-295); Potassium 4.2 mmol/L (3.5-5.1); Sodium 143 mmol/L (136-145)
== END 2024-10-14 16:34 | disposition home or self-care (01) ==
LOC: LAB 16:42
DX: I34.0 Nonrheumatic mitral (valve) insufficiency (principal)
CPT/HCPCS: 80048

== ENCOUNTER 2024-12-02 06:03 | Outpatient (CLI) | payer MEDICARE, SELFPAY ==
--- NOTE | 2024-12-02 06:13 | USCV_ITS ---
Zaire Lujan Age: 64 Gender: M : 1960 Exam Date: 12/02/2024 06:22 Ordering Phys: Liv Moreno DNP Technologist: Exam Location: [facility] – [place] Indication: hx of mi and mitrial valve ring BP: 140 / 70 HR: 71 Rhythm: Sinus Technical Quality: Adequate MEASUREMENTS (Male / Female) Normal Values 2D ECHO LV Diastolic Diameter PLAX 5.3 cm 4.2 - 5.9 / 3.9 - 5.3 cm IVS Diastolic Thickness 1.5 cm 0.6 - 1.0 / 0.6 - 0.9 cm IVS Systolic Thickness 1.9 cm LVPW Diastolic Thickness 1.2 cm 0.6 - 1.0 / 0.6 - 0.9 cm LVPW Systolic Thickness 1.5 cm LVOT Diameter 2.1 cm LV Ejection Fraction 2D Teich 43.4 % LV Ejection Fraction MOD 4C 38.9 % LV Ejection Fraction MOD 2C 36.1 % LV Ejection Fraction 2C AL 35.5 % LA Diameter 3.5 cm RA Systolic Volume 4C AL 43.5 ml RA Systolic Volume 4C MOD 41.0 ml LA Sys Volume AL 62.5 cm cubed LA Sys Volume Index AL 39.2 cm cubed/m squared Aorta at Sinotubular Diameter 2.8 cm IVC Diameter 1.6 cm M-MODE LA Ao Ratio MM 1.0 AV Cusp Separation MM 1.6 cm DOPPLER AV Peak Velocity 92.0 cm/s LVOT Peak Velocity 71.0 cm/s AV Area Cont Eq vti 3.5 cm squared AV Area Cont Eq pk 2.6 cm squared MV Peak Velocity 117.0 cm/s TV Peak Velocity 238.5 cm/s TR Peak Velocity 248.0 cm/s TR Peak Gradient 24.6 mmHg TV Peak E Velocity 77.0 cm/s PV Peak Velocity 98.0 cm/s FINDINGS Left Ventricle Diffuse hypokinesia of the left ventricle with ejection fraction of 36%.mildly increased left ventricular cavity size. Mild left ventricular hypertrophy. Right Ventricle Normal right ventricular size and systolic function. Right Atrium The right atrium is normal in size. Left Atrium Moderately increased left atrial volume 39 ml/m squared. Mitral Valve The mitral annular ring is intact.thickened mitral valve leaflets. At least moderate mitral valve regurgitation. Aortic Valve Thickened aortic valve. Mild aortic valve regurgitation. Tricuspid Valve Mild to moderate tricuspid valve regurgitation. Pulmonic Valve Minimally thickened Pericardium Normal pericardium without effusion. Aorta Normal aortic annulus size. IVC Normal inferior vena cava. CONCLUSIONS Diffuse hypokinesia of the left ventricle with ejection fraction of 36%.mildly increased left ventricular cavity size. Mild left ventricular hypertrophy. Moderately increased left atrial volume 39 ml/m squared. The mitral annular ring is intact.thickened mitral valve leaflets. At least moderate mitral valve regurgitation. Thickened aortic valve. Mild aortic valve regurgitation. Mild to moderate tricuspid valve regurgitation. Estimated pulmonary artery peak systolic pressure 28 mmHg There are no intracardiac masses. There is no pericardial effusion. Compared to the study from 05/23/2024, there may not be a significant change Dr Aleida Combs MD [facility] (Electronically Signed) Final Date: 03 December 2024 00:06 S
== END 2024-12-02 06:04 | disposition home or self-care (01) ==
PROVIDERS: Visit Provider Nurse Practitioner Adult Health
DX: I25.10 Atherosclerotic heart disease of native coronary artery without angina pectoris (principal); R93.1 Abnormal findings on diagnostic imaging of heart and coronary circulation; I34.0 Nonrheumatic mitral (valve) insufficiency; I35.8 Other nonrheumatic aortic valve disorders; I35.1 Nonrheumatic aortic (valve) insufficiency; I07.1 Rheumatic tricuspid insufficiency
CPT/HCPCS: 93306

== ENCOUNTER 2025-01-19 16:18 | Outpatient (CLI) | payer MEDICARE, SELFPAY ==
--- NOTE | 2025-01-19 16:26 | USCV_ITS ---
Zaire Lujan Age: 64 Gender: M : 1960 Exam Date: 01/19/2025 16:50 Ordering Phys: Claudy Saldana MD Technologist: R Exam Location[place] [facility] [place] Indication: stenosis Risk Factors: Previous Vascular Surgery: Right Brachial BP: / Left Brachial BP: / Right Left Velocity (cm/s) Spectral Plaque Velocity (cm/s) Spectral Plaque Syst/Diast Broadening Syst/Diast Broadening 119.60/32.50 Prox CCA 115.90/ 27.40 112.40/28.50 Mid CCA 97.70 / 28.60 132.50/28.50 Distal CCA 109.20/ 26.90 111.00/32.40 Prox ICA 142.30/ 34.80 73.00/ 25.30 Mid ICA 112.70/ 23.60 75.10/ 24.80 Distal ICA 92.30 / 32.40 121.20 ECA 108.00 0.80 ICA/CCA 1.30 Antegrade Vertebral Antegrade 54.10/ 18.40 cm/s 57.10/ 15.60 cm/s Tri Subclavian Tri 121.7 116.1 0 0 FINDINGS Comparison:. 04/28/21 Waveforms are normal. No significant elevation of systolic or diastolic velocities. Minimal bilateral carotid atherosclerosis. CONCLUSIONS Bilateral ICA stenosis less than 50%. No interval change in stenosis since prior exam. Dr. Johana Ramirez DO (Electronically Signed) Final Date: 20 Jan 2025 07:45 S
== END 2025-01-19 16:19 | disposition home or self-care (01) ==
PROVIDERS: Visit Provider Internal Medicine Cardiovascular Disease
DX: I65.23 Occlusion and stenosis of bilateral carotid arteries (principal)
CPT/HCPCS: 93880